=== PATIENT | male | born 1935 | race Caucasian/White ===

== ENCOUNTER → 2018-10-06 | Outpatient (CLI) | payer MEDICARE, OTHER ==
--- NOTE | 2018-10-07 00:29 | XR ---
EXAMINATION TYPE: XR lumbosacral spine min 4V DATE OF EXAM: 10/06/2018 COMPARISON: NONE HISTORY: 83-year-old male fall and low back pain TECHNIQUE: 5 views FINDINGS: Degenerated, slight dextroconvex curvature of the lumbar spine. Advanced dissection plate degenerativ e change L4-L5 and L5-S1. Mild additional levels with prominent endplate spondylosis. Hypertrophic fa cet arthropathy mid to lower lumbar spine. There is grade 1 anterolisthesis at L3-L4. Vertebral body heights are preserved. 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 IMPRESSION: 1. Moderate to advanced disc/endplate degenerative changes especially at L4-L5 and L5-S1. 2. Hypertrophic facet arthropathy with grade 1 anterolisthesis at L3-L4. 3. No vertebral compression collapse. 4. 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
== END | disposition home or self-care (01) ==
LOC: RADXRMAIN 16:43
PROVIDERS: ATTEND Internal Medicine
DX: M43.16 Spondylolisthesis, lumbar region (principal); M51.36 Other intervertebral disc degeneration, lumbar region; M46.96 Unspecified inflammatory spondylopathy, lumbar region
CPT/HCPCS: 72110

== ENCOUNTER 2018-11-05 14:56 | Emergency (ER) | payer MEDICARE, OTHER ==
[2018-11-05 15:03] VITALS: RESP 18; TEMP 98.4
--- NOTE | 2018-11-05 15:52 | ED ---
Male Urogenital HPI - General Chief complaint: Urogenital Stated complaint: GI bleed Time Seen by Provider: 11/05/18 15:07 Source: patient Mode of arrival: ambulatory Limitations: no limitations - History of Present Illness Initial comments: Patient is a 83-year-old male presenting to the emergency Department with complaints of hematuria 1 month. Patient states approximately one month ago patient took a fall onto his right side. Patient states ever since then he has been having blood in his urine. Patient did see Dr. Hanson regarding this issue and an ultrasound of the kidneys was ordered and was scheduled for next week. Patient states he is still having hematuria and some right-sided flank pain. Patient denies any fever, chills, nausea, vomiting. No other complaints at this time. - Related Data Allergies Allergy/AdvReac Type Severity Reaction Status Date / Time No Known Allergies Allergy Verified 11/05/18 15:02 Review of Systems ROS Statement: Those systems with pertinent positive or pertinent negative responses have been documented in the HPI. ROS Other: All systems not noted in ROS Statement are negative. Past Medical History Past Medical History: Diabetes Mellitus, Hypertension History of Any Multi-Drug Resistant Organisms: None Reported Additional Past Surgical History / Comment(s): colon surgery- poor historian Past Psychological History: No Psychological Hx Reported Smoking Status: Former smoker Past Alcohol Use History: Occasional Past Drug Use History: None Reported General Exam - General Exam Comments Initial Comments: GENERAL: Well-appearing, well-nourished and in no acute distress. HEAD: Atraumatic, normocephalic. EYES: Pupils equal round and reactive to light, extraocular movements intact, sclera anicteric, conjunctiva are normal. ENT: TMs normal, nares patent, oropharynx clear without exudates. Moist mucous membranes. NECK: Normal range of motion, supple without lymphadenopathy or JVD. LUNGS: Breath sounds clear to auscultation bilaterally and equal. No wheezes rales or rhonchi. HEART: Regular rate and rhythm without murmurs, rubs or gallops. ABDOMEN: Soft, nontender, normoactive bowel sounds. No guarding, no rebound. No masses appreciated. Mild right side tenderness. : normal external exam EXTREMITIES: Normal range of motion, no pitting or edema. No clubbing or cyanosis. NEUROLOGICAL: Cranial nerves II through XII grossly intact. Normal speech, normal gait. PSYCH: Normal mood, normal affect. SKIN: Warm, Dry, normal turgor, no rashes or lesions noted. Limitations: no limitations Course Vital Signs 11/05/18 14:58 Temperature 98.4 F Pulse Rate 92 Respiratory 18 Rate Blood Pressure 138/88 O2 Sat by Pulse 93 L Oximetry Medical Decision Making - Medical Decision Making Patient is a 83-year-old male presenting with hematuria 1 month. Patient denies any fever, chills, abdominal pain, nausea, vomiting. Patient admits to some right-sided flank pain. Dr. Hanson ordered kidney ultrasound that was scheduled for next week. Patient's exam is within normal limits. CBC, CMP are within normal limits. Urine is very red, greater than 182 red blood cells. Renal ultrasound shows no acute process. Patient is stable for discharge. Patient is given urology referral and will contact him tomorrow. Patient is agreement with this plan. Return parameters were discussed with the patient and he verbalized understanding. Case discussed with Dr. Ortega. - Lab Data Result diagrams: 11/05/18 16:38 11/05/18 16:38 Lab Results 11/05/18 11/05/18 11/05/18 Range/Units 16:23 16:38 16:38 WBC 9.3 (3.8-10.6) k/uL RBC 3.65 L (4.30-5.90) m/uL Hgb 11.4 L (13.0-17.5) gm/dL Hct 34.3 L (39.0-53.0) % MCV 93.8 (80.0-100.0) fL MCH 31.3 (25.0-35.0) pg MCHC 33.3 (31.0-37.0) g/dL RDW 15.6 H (11.5-15.5) % Plt Count 225 (150-450) k/uL Neutrophils % 83 % Lymphocytes % 10 % Monocytes % 4 % Eosinophils % 2 % Basophils % 0 % Neutrophils # 7.6 (1.3-7.7) k/uL Lymphocytes # 1.0 (1.0-4.8) k/uL Monocytes # 0.4 (0-1.0) k/uL Eosinophils # 0.2 (0-0.7) k/uL Basophils # 0.0 (0-0.2) k/uL Sodium 136 L (137-145) mmol/L Potassium 4.2 (3.5-5.1) mmol/L Chloride 103 (98-107) mmol/L Carbon Dioxide 22 (22-30) mmol/L Anion Gap 11 mmol/L BUN 16 (9-20) mg/dL Creatinine 0.96 (0.66-1.25) mg/dL Est GFR (CKD-EPI)AfAm 85 (>60 ml/min/1.73 sqM) Est GFR (CKD-EPI)NonAf 73 (>60 ml/min/1.73 sqM) Glucose 216 H (74-99) mg/dL Calcium 9.0 (8.4-10.2) mg/dL Total Bilirubin 0.5 (0.2-1.3) mg/dL AST 22 (17-59) U/L ALT 20 L (21-72) U/L Alkaline Phosphatase 89 (38-126) U/L Total Protein 7.4 (6.3-8.2) g/dL Albumin 4.0 (3.5-5.0) g/dL Urine Color Red Urine Appearance Bloody (Clear) Urine RBC >182 H (0-5) /hpf Urine WBC >182 H (0-5) /hpf Disposition Clinical Impression: Hematuria Disposition: HOME SELF-CARE Condition: Stable Instructions (If sedation given, give patient instructions): Hematuria (ED) Additional Instructions: Please return to the Emergency Department if symptoms worsen or any other concerns. Follow up with urology as discussed tomorrow. Is patient prescribed a controlled substance at d/c from ED?: No Referrals: Raffi Hanson MD [Primary Care Provider] - 1-2 days Dylan Samaniego MD [STAFF PHYSICIAN] - 1-2 days
[2018-11-05 16:44] LABS: RBC,Urine >182 /hpf (0-5)
[2018-11-05 16:45] LABS: Appearance,Urine Bloody (Clear); Color,Urine Red
[2018-11-05 16:49] LABS: Basophils % (A) 0 %; Eosinophils # (A) 0.2 k/uL (0-0.7); Eosinophils % (A) 2 %; HCT 34.3 % (39.0-53.0); HGB 11.4 gm/dL (13.0-17.5); Lymphocytes % (A) 10 %; MCH 31.3 pg (25.0-35.0); MCHC 33.3 g/dL (31.0-37.0); MCV 93.8 fL (80.0-100.0); Mean Platelet Volume 7.9; Monocytes # (A) 0.4 k/uL (0-1.0); Monocytes % (A) 4 %; Neutrophils # (A) 7.6 k/uL (1.3-7.7); Neutrophils % (A) 83 %; Platelet Count 225 k/uL (150-450); RBC 3.65 m/uL (4.30-5.90); RDW 15.6 % (11.5-15.5); WBC 9.3 k/uL (3.8-10.6)
[2018-11-05 16:58] LABS: Potassium 4.2 mmol/L (3.5-5.1); Total Bilirubin 0.5 mg/dL (0.2-1.3); Total Protein 7.4 g/dL (6.3-8.2)
--- NOTE | 2018-11-05 18:13 | US ---
EXAMINATION TYPE: US renals and bladder DATE OF EXAM: 11/05/2018 COMPARISON: US, CT CLINICAL HISTORY: Pain, hematuria. Pain right side and back. HTN. Hematuria. EXAM MEASUREMENTS: Right Kidney: 11.3 x 5.7 x 6.0 cm Left Kidney: 11.2 x 6.0 x 5.9 cm Right Kidney: Hypoechoic area seen inferiorly measurin.8 x 0.7 x 0.7 cm. Left Kidney: Hypoechoic area seen inferiorly measurin.6 x 2.2 x 1.7 cm. Bladder: not seen Bilateral Jets seen: no IMPRESSION: No acute process.
[2018-11-05 18:53] VITALS: BP 124/81; PULSE 81
== END 2018-11-05 18:51 | disposition home or self-care (01) ==
LOC: EC 14:56
DX: R31.9 Hematuria, unspecified (principal); R10.9 Unspecified abdominal pain; Z87.891 Personal history of nicotine dependence
CPT/HCPCS: 36415; 76770; 80053; 81001; 85025; 87086; 99284

== ENCOUNTER → 2018-11-18 | Outpatient (CLI) | payer MEDICARE, OTHER ==
--- NOTE | 2018-11-18 11:22 | US ---
EXAMINATION TYPE: US duplex aorta DATE OF EXAM: 11/18/2018 COMPARISON: CT 2013 CLINICAL HISTORY: I71.9 Aortic aneurysm of unspecified site, without. Patient c/o back pain. EXAM MEASUREMENTS: Abdominal Aorta: Proximal: 2.6 x 2.2 cm Mid: 2.3 x 1.9 cm Distal: 2.0 x 1.7 cm Bifurcation: 1.3 cm 1.3 cm Sub optimal visualization overall d/t large amounts of overlying bowel gas. No evidence of AAA. IMPRESSION: Suboptimal study, visualized portions show no AAA.
== END | disposition home or self-care (01) ==
LOC: RADUSWWP 10:13
PROVIDERS: ATTEND Internal Medicine
DX: I71.9 Aortic aneurysm of unspecified site, without rupture (principal)
CPT/HCPCS: 93979

== ENCOUNTER → 2018-12-18 | Outpatient (CLI) | payer MEDICARE ==
--- NOTE | 2018-12-18 15:30 | CT ---
EXAMINATION TYPE: CT urogram wo/w con DATE OF EXAM: 12/18/2018 COMPARISON: 05/26/2013 HISTORY: 83-year-old male Hematuria with clotting post fall in September 2018 TECHNIQUE: Contiguous axial scanning of the abdomen and pelvis performed without and with IV Contrast , patient injected with 100 mL of Isovue 300. Delayed images through the kidneys and bladder were obt ained. Coronal/sagittal reconstructions performed. 3-D reconstructions generated on a dedicated [employer] workstation. CT DLP: 2833.8 mGycm Automated exposure control for dose reduction was used. FINDINGS: Normal size without pericardial effusion. There is new patchy nodular infiltrates in the bilateral lo wer lobes. Progressive moderate to severe atherosclerotic calcifications throughout the abdominal aorta and laurence c arteries. Tiny hiatal hernia. No focal liver lesion or biliary ductal dilatation. Portal venous system is patent. Small layering calculi in the gallbladder. Adrenal glands and anchors appear within normal limits. Spleen mildly enlarged at 15.7 cm. Left kidney shows a 1.8 cm cortical cyst laterally from the lower pole. Otherwise, no suspicious enhancing renal lesion. No nephrolithiasis or hydronephrosis. Symmetric upta ke and excretion of contrast from both kidneys. No suspicious filling defect within the renal collect ing systems. Short segments of the ureters are not opacified. The majority of the ureters are visualized and show no gross about 8. Status post distal rectal resection allowing for medialization and posterior positioning of the urete rs. No dilated small bowel, free fluid, or free air. No mesenteric or retroperitoneal lymphadenopathy. Staple lines within lower abdominal mid small bowel related to prior bowel resection and reanastomosi s. Normal appendix. Mild overall stool burden with left lower quadrant sigmoid colostomy. No pericolonic inflammatory change. Suggestion of some soft tissue density along the left posterior bladder wall measuring up to 3.5 x 1. 3 cm no abnormal fluid collection the pelvis. Stable presacral soft tissue thickening likely on a pos tsurgical basis. No pelvic lymphadenopathy. Bones: Degenerative changes at the hips and advanced degenerative disc disease L4-L5 and L5-S1 along with hypertrophic facet arthropathy. IMPRESSION: 1. BENIGN 1.8 CM LEFT LOWER POLE RENAL CORTICAL CYST. 2. NO NEPHROLITHIASIS, HYDRONEPHROSIS, SUSPICIOUS RENAL LESION, OR FILLING DEFECT WITHIN THE RENAL CO LLECTING SYSTEMS. 3. MOST OF THE URETERS ARE OPACIFIED AND SHOW NO GROSS ABNORMALITY. DISTAL RECTAL RESECTION ALLOWS FO R MEDIALIZATION AND POSTERIOR DISPLACEMENT OF THE URETERS IN THE PELVIS. 4. A 3.5 X 1.3 CM SOFT TISSUE DENSITY INTRALUMINAL FILLING DEFECT NEAR THE LEFT POSTERIOR BLADDER WAL L. CLOT, FUNGUS BALL, AND NEOPLASM ARE IN THE DIFFERENTIAL. FURTHER APPROPRIATE WORKUP INDICATED. 5. TINY HERNIA, CHOLELITHIASIS, MILD SPLENOMEGALY (15.7 CM).
== END | disposition home or self-care (01) ==
LOC: RADCTMAIN 12:13
PROVIDERS: ATTEND Urology
DX: N28.1 Cyst of kidney, acquired (principal); K44.9 Diaphragmatic hernia without obstruction or gangrene; K80.20 Calculus of gallbladder without cholecystitis without obstruction; R31.0 Gross hematuria; R16.1 Splenomegaly, not elsewhere classified
CPT/HCPCS: 82565; 84520; 74178; 36415; 74400; Q9967

== ENCOUNTER 2018-12-22 14:39 | Inpatient (IN) | payer MEDICARE ==
[2018-12-22] MEDS ORDERED: FUROSEMIDE 10 MG/ML 2 ML VIAL IV ONE (16:15)
[2018-12-22 16:46] LABS: Albumin 3.9 g/dL (3.5-5.0); Calcium 8.9 mg/dL (8.4-10.2); Potassium 4.1 mmol/L (3.5-5.1); Total Bilirubin 0.7 mg/dL (0.2-1.3)
[2018-12-22 16:52] LABS: Anisocytosis Slight; Basophils % (A) 1 %; Eosinophils # (A) 0.1 k/uL (0-0.7); Eosinophils % (A) 3 %; Hypochromasia Marked; Lymphocytes % (A) 22 %; MCH 26.4 pg (25.0-35.0); Mean Platelet Volume 9.6; Monocytes # (A) 0.4 k/uL (0-1.0); Monocytes % (A) 8 %; Neutrophils % (A) 65 %; Platelet Count 261 k/uL (150-450); Poikilocytosis Marked; RBC 1.96 m/uL (4.30-5.90); RDW 16.3 % (11.5-15.5); WBC 4.6 k/uL (3.8-10.6)
[2018-12-22 17:01] LABS: HCT 16.7 % (39.0-53.0); HGB 5.2 gm/dL (13.0-17.5); MCV 85.4 fL (80.0-100.0)
[2018-12-22 17:11] LABS: Poikilocytosis (M) Present; Polychromasia Present; Target Cells Present
[2018-12-22 17:27] LABS: Glucose,Whole Blood 273 mg/dL (75-99)
[2018-12-22] MEDS: hydrALAZINE HCL 50 MG TAB PO SCH (17:58)
[2018-12-22] MEDS: INSULIN ASPART (NovoLOG) 100 UNIT/ML VIAL SQ SCH ×2 (17:58→21:32)
[2018-12-22] MEDS: CARVEDILOL 6.25 MG TAB PO SCH (17:58)
[2018-12-22] MEDS: SODIUM CHLORIDE 0.9% 1,000 ML IV SCH (19:01)
[2018-12-22 21:09] LABS: Glucose,Whole Blood 200 mg/dL (75-99)
[2018-12-22] MEDS: glipiZIDE 5 MG TAB PO SCH (21:32)
--- NOTE | 2018-12-22 21:42 | P.GSCN ---
History of Present Illness Consult date: 12/22/18 Reason for Consult: Gross hematuria Requesting physician: Raffi Hanosn History of present illness: The patient is an 83-year-old white male with an unremarkable urologic history. He fell on October 02, hurting his back. Since that time, he has experienced gross hematuria. He denies urinary incontinence. He reports occasional mild dysuria. Review of Systems - Constitutional Denies chills, Denies fever - Genitourinary Reports dysuria, Reports hematuria, Reports nocturia Past Medical History Past Medical History: Diabetes Mellitus, Hypertension History of Any Multi-Drug Resistant Organisms: None Reported Past Surgical History: Bowel Resection Additional Past Surgical History / Comment(s): Sigmoid colostomy Past Anesthesia/Blood Transfusion Reactions: No Reported Reaction Past Psychological History: No Psychological Hx Reported Smoking Status: Former smoker Past Alcohol Use History: Occasional Past Drug Use History: None Reported - Past Family History Father History Unknown: Yes Mother Family Medical History: No Reported History Medications and Allergies Home Medications Medication Instructions Recorded Confirmed Type Aspirin EC [Ecotrin Low Dose] 81 mg PO DAILY 12/22/18 12/22/18 History Carvedilol [Coreg] 6.25 mg PO BID 12/22/18 12/22/18 History Hydrochlorothiazide [Hydrodiuril] 25 mg PO DAILY 12/22/18 12/22/18 History Linagliptin [Tradjenta] 5 mg PO DAILY 12/22/18 12/22/18 History glipiZIDE [Glucotrol] 5 mg PO AC-TID 12/22/18 12/22/18 History hydrALAZINE HCL 50 mg PO AC-BID 12/22/18 12/22/18 History Allergies Allergy/AdvReac Type Severity Reaction Status Date / Time No Known Allergies Allergy Verified 11/05/18 15:02 Surgical - Exam Vital Signs Temp Pulse Resp BP Pulse Ox 97.8 F 61 16 148/62 98 12/22/18 16:04 12/22/18 16:04 12/22/18 16:04 12/22/18 16:04 12/22/18 16:04 - General well developed, well nourished, no distress - Respiratory normal respiratory effort - Abdomen left-sided colostomy Abdomen: soft, non tender, no guarding, no rigid, no rebound - Genitourinary normal penis with no external lesions, testicles non-tender - Psychiatric oriented to time, oriented to person, oriented to place, speech is normal, memory intact Results - Labs 12/22/18 16:18 12/22/18 16:18 Abnormal Lab Results - Last 24 Hours (Table) 12/22/18 12/22/18 12/22/18 Range/Units 16:12 16:18 16:18 RBC 1.96 L (4.30-5.90) m/uL Hgb 5.2 L* D (13.0-17.5) gm/dL Hct 16.7 L* (39.0-53.0) % RDW 16.3 H (11.5-15.5) % Sodium 135 L (137-145) mmol/L BUN 24 H (9-20) mg/dL Glucose 255 H (74-99) mg/dL POC Glucose (mg/dL) (75-99) mg/dL Crossmatch See Detail 12/22/18 12/22/18 Range/Units 17:26 21:08 RBC (4.30-5.90) m/uL Hgb (13.0-17.5) gm/dL Hct (39.0-53.0) % RDW (11.5-15.5) % Sodium (137-145) mmol/L BUN (9-20) mg/dL Glucose (74-99) mg/dL POC Glucose (mg/dL) 273 H 200 H (75-99) mg/dL Crossmatch Diabetes panel 12/22/18 Range/Units 16:18 Sodium 135 L (137-145) mmol/L Potassium 4.1 (3.5-5.1) mmol/L Chloride 99 (98-107) mmol/L Carbon Dioxide 25 (22-30) mmol/L BUN 24 H (9-20) mg/dL Creatinine 1.03 (0.66-1.25) mg/dL Glucose 255 H (74-99) mg/dL Calcium 8.9 (8.4-10.2) mg/dL AST 17 (17-59) U/L ALT 21 (21-72) U/L Alkaline Phosphatase 77 (38-126) U/L Total Protein 7.0 (6.3-8.2) g/dL Albumin 3.9 (3.5-5.0) g/dL Calcium panel 12/22/18 Range/Units 16:18 Calcium 8.9 (8.4-10.2) mg/dL Albumin 3.9 (3.5-5.0) g/dL Pituitary panel 12/22/18 Range/Units 16:18 Sodium 135 L (137-145) mmol/L Potassium 4.1 (3.5-5.1) mmol/L Chloride 99 (98-107) mmol/L Carbon Dioxide 25 (22-30) mmol/L BUN 24 H (9-20) mg/dL Creatinine 1.03 (0.66-1.25) mg/dL Glucose 255 H (74-99) mg/dL Calcium 8.9 (8.4-10.2) mg/dL Adrenal panel 12/22/18 Range/Units 16:18 Sodium 135 L (137-145) mmol/L Potassium 4.1 (3.5-5.1) mmol/L Chloride 99 (98-107) mmol/L Carbon Dioxide 25 (22-30) mmol/L BUN 24 H (9-20) mg/dL Creatinine 1.03 (0.66-1.25) mg/dL Glucose 255 H (74-99) mg/dL Calcium 8.9 (8.4-10.2) mg/dL Total Bilirubin 0.7 (0.2-1.3) mg/dL AST 17 (17-59) U/L ALT 21 (21-72) U/L Alkaline Phosphatase 77 (38-126) U/L Total Protein 7.0 (6.3-8.2) g/dL Albumin 3.9 (3.5-5.0) g/dL - Imaging CT scan - pelvis: report reviewed, image reviewed Assessment and Plan (1) Gross hematuria Current Visit: Yes Status: Acute Code(s): R31.0 - GROSS HEMATURIA SNOMED Code(s): 931134943 Plan: I have reviewed the patient's CT scan. The kidneys are normal other than a left renal cyst. An intravesical lesion is suspicious for urothelial carcinoma. If the patient's condition is stable following transfusion, he may be discharged home and arrangements will be made for him to undergo office cystoscopy soon. He is followed by Dr. Ritter and I will make him aware of Mr. Melchor's admission. Time with Patient: Greater than 30
[2018-12-23 07:22] LABS: Glucose,Whole Blood 270 mg/dL (75-99)
[2018-12-23] MEDS: INSULIN ASPART (NovoLOG) 100 UNIT/ML VIAL SQ SCH ×4 (08:23→20:33)
[2018-12-23] MEDS: glipiZIDE 5 MG TAB PO SCH ×3 (08:24→16:48)
[2018-12-23] MEDS: CARVEDILOL 6.25 MG TAB PO SCH ×2 (08:24→16:26)
[2018-12-23] MEDS: hydrALAZINE HCL 50 MG TAB PO SCH ×2 (08:24→16:26)
[2018-12-23] MEDS: LINAGLIPTIN 5 MG TABLET PO SCH (08:24)
[2018-12-23] MEDS: HYDROCHLOROTHIAZIDE 25 MG TAB PO SCH (08:25)
[2018-12-23 08:55] LABS: Anisocytosis Slight; Basophils % (A) 0 %; Eosinophils % (A) 0 %; HCT 23.5 % (39.0-53.0); Hypochromasia Marked; Lymphocytes # (A) 0.9 k/uL (1.0-4.8); Lymphocytes % (A) 8 %; MCH 27.9 pg (25.0-35.0); MCHC 32.7 g/dL (31.0-37.0); MCV 85.5 fL (80.0-100.0); Monocytes # (A) 0.6 k/uL (0-1.0); Monocytes % (A) 5 %; Neutrophils # (A) 9.9 k/uL (1.3-7.7); Neutrophils % (A) 84 %; Platelet Count 279 k/uL (150-450); Poikilocytosis Marked; RBC 2.75 m/uL (4.30-5.90); RDW 16.1 % (11.5-15.5); WBC 11.7 k/uL (3.8-10.6)
[2018-12-23 09:02] LABS: Potassium 3.8 mmol/L (3.5-5.1)
[2018-12-23 09:12] LABS: HGB 7.7 gm/dL (13.0-17.5)
--- NOTE | 2018-12-23 09:58 | P.HPIM ---
History of Present Illness H&P Date: 12/23/18 Chief Complaint: Anemia hemoglobin 5.1 and office This is a 83-year-old male with a known history of diabetes mellitus, hypertension, small bowel obstruction requiring bowel resection and colostomy placement. Patient had a fall in September hitting his back. He reports since then having blood in his urine. He has been undergoing workup in the outpatient setting. He was seen by Dr. Ritter and had a CT urogram completed showing a benign 1.8 cm left lower pole renal cortical cyst. A 3.5 x 1.3 cm soft tissue density intraluminal filling defect near the left posterior bladder wall. Clot, fungus ball, a neoplasm are in the differential. Tiny hernia, cholelithiasis and mild splenomegaly noted. Patient was a direct admit from the office due to a hemoglobin of 5.1. He been having significant hematuria with blood clots since September. Patient was brought in by the granddaughter. She was concerned because patient was more confused and dizzy. He was having difficulty with ambulating and complaining of lower back pain. This was omitted to the hospital receive 2 units of blood with Lasix in between. Hemoglobin has gone up from 5.2-7.7. Patient seen by urology the recommending cystoscopy outpatient. White count is elevated 11.7 today. Patient is still having confusion. He reports feeling better than yesterday but still having some dizziness and shortness of breath. He denies any chest pain. She denies any nausea or vomiting or bowel movement changes. Denies any burning with urination. Hematuria has resolved. Patient denies any fevers chills or sweats. Review of Systems Please refer to HPI otherwise unremarkable Past Medical History Past Medical History: Diabetes Mellitus, Hypertension History of Any Multi-Drug Resistant Organisms: None Reported Past Surgical History: Bowel Resection Additional Past Surgical History / Comment(s): Sigmoid colostomy Past Anesthesia/Blood Transfusion Reactions: No Reported Reaction Past Psychological History: No Psychological Hx Reported Smoking Status: Former smoker Past Alcohol Use History: Occasional Past Drug Use History: None Reported - Past Family History Father History Unknown: Yes Mother Family Medical History: No Reported History Medications and Allergies Home Medications Medication Instructions Recorded Confirmed Type Aspirin EC [Ecotrin Low Dose] 81 mg PO DAILY 12/22/18 12/23/18 History Carvedilol [Coreg] 6.25 mg PO BID 12/22/18 12/23/18 History Hydrochlorothiazide [Hydrodiuril] 25 mg PO DAILY 12/22/18 12/23/18 History Linagliptin [Tradjenta] 5 mg PO DAILY 12/22/18 12/23/18 History glipiZIDE [Glucotrol] 5 mg PO AC-TID 12/22/18 12/23/18 History hydrALAZINE HCL 50 mg PO AC-BID 12/22/18 12/23/18 History Allergies Allergy/AdvReac Type Severity Reaction Status Date / Time No Known Allergies Allergy Verified 12/23/18 07:55 Physical Exam Vitals: Vital Signs Temp Pulse Pulse Resp BP BP Pulse Ox 12/23/18 08:32 95 12/23/18 05:03 98.6 F 71 20 122/56 96 12/23/18 02:07 98.9 F 67 19 135/78 98 12/23/18 01:37 97.8 F 66 18 140/60 97 12/23/18 01:27 98.6 F 80 18 124/61 97 12/22/18 23:50 97.5 F L 67 18 117/68 97 12/22/18 20:39 97.3 F L 77 18 123/65 98 12/22/18 20:09 97.3 F L 80 19 122/56 96 12/22/18 19:59 97.1 F L 88 21 135/63 97 12/22/18 16:04 97.8 F 61 16 148/62 98 Intake and Output 12/22/18 12/23/18 12/23/18 22:59 06:59 14:59 Intake Total 0 1460 Balance 0 1460 Intake: Intake, IV Titration 600 Amount Sodium Chloride 0.9% 1, 600 000 ml @ 50 mls/hr IV . Q20H [facility] Rx#:[id number] Oral 240 Blood Product 0 620 Rc As-1 Unit 310 [id number] Rc As-3 Unit 0 310 [id number] Other: Voiding Method Urinal # Voids 5 # Bowel Movements 0 1 Weight 99.79 kg Head normocephalic Neck supple Lungs clear to auscultation bilaterally no wheezing or crackles Heart regular rate and rhythm S1-S2, no rub or gallop Abdomen is soft nontender nondistended positive bowel sounds no hepatosplenomegaly. Colostomy bag Extremities no edema Neuro alert and orientated to name only. Patient could not identify where he was at. And said that it was 1819 for the year. Results CBC & Chem 7: 12/23/18 08:28 12/23/18 08:28 Labs: Abnormal Lab Results - Last 24 Hours (Table) 12/22/18 12/22/18 12/22/18 Range/Units 16:12 16:18 16:18 WBC (3.8-10.6) k/uL RBC 1.96 L (4.30-5.90) m/uL Hgb 5.2 L* D (13.0-17.5) gm/dL Hct 16.7 L* (39.0-53.0) % RDW 16.3 H (11.5-15.5) % Neutrophils # (1.3-7.7) k/uL Lymphocytes # (1.0-4.8) k/uL Sodium 135 L (137-145) mmol/L BUN 24 H (9-20) mg/dL Glucose 255 H (74-99) mg/dL POC Glucose (mg/dL) (75-99) mg/dL Crossmatch See Detail 12/22/18 12/22/18 12/23/18 Range/Units 17:26 21:08 07:21 WBC (3.8-10.6) k/uL RBC (4.30-5.90) m/uL Hgb (13.0-17.5) gm/dL Hct (39.0-53.0) % RDW (11.5-15.5) % Neutrophils # (1.3-7.7) k/uL Lymphocytes # (1.0-4.8) k/uL Sodium (137-145) mmol/L BUN (9-20) mg/dL Glucose (74-99) mg/dL POC Glucose (mg/dL) 273 H 200 H 270 H (75-99) mg/dL Crossmatch 12/23/18 12/23/18 Range/Units 08:28 08:28 WBC 11.7 H (3.8-10.6) k/uL RBC 2.75 L (4.30-5.90) m/uL Hgb 7.7 L D (13.0-17.5) gm/dL Hct 23.5 L (39.0-53.0) % RDW 16.1 H (11.5-15.5) % Neutrophils # 9.9 H (1.3-7.7) k/uL Lymphocytes # 0.9 L (1.0-4.8) k/uL Sodium 136 L (137-145) mmol/L BUN (9-20) mg/dL Glucose 245 H (74-99) mg/dL POC Glucose (mg/dL) (75-99) mg/dL Crossmatch Thrombosis Risk Factor Assmnt - Choose All That Apply Any of the Below Risk Factors Present?: No Other Risk Factors: Yes Each Risk Factor Represents 3 Points: Age 75 years or older Thrombosis Risk Factor Assessment Total Risk Factor Score: 3 Thrombosis Risk Factor Assessment Level: Moderate Risk Assessment and Plan Assessment: 1. Acute blood loss anemia with a hemoglobin of 5.1 in the office. This is secondary to the hematuria. Hemoglobin is now 7.7 after 2 units of blood. Continue to monitor CBC. 2. Soft tissue density in the bladder wall suspicious for urothelial carcinoma. 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 The recommending cystoscopy in the outpatient setting. 3. Leukocytosis: We will check urinalysis and chest x-ray. Repeat CBC in a.m. 4. Dizziness and shortness of breath likely secondary to patient's anemia starting to show improvement 5. Diabetes mellitus with uncontrolled blood sugars. It is unclear if patient was taking his blood sugar medications at home. Patient is been restarted on his glipizide 5 mg 3 times a day and Tradjenta 5 mg daily. Continue with sliding scale coverage. Check hemoglobin A1c. 6. Confusion and altered mental status possibly metabolic due to patient's anemia. However, will rule out infectious causes check urinalysis and chest x- ray 7. Essential hypertension: blood pressures are stable. continue with hydrochlorothiazide 8. Medical debility and unsteady gait. Consult PT OT 9. Consult social service coordinator and case briefer for possible nursing assistance at home or possible placement. Time with Patient: Greater than 30 (Greater than 50% of the total time spent in counseling and coordination of care.I performed an examination of the patient and discussed their management with the physician Instructional Design Consultant. I have reviewed the Physician Instructional Design Consultant's notes and agree with the documented findings and plan of care)
[2018-12-23 11:38] LABS: Glucose,Whole Blood 235 mg/dL (75-99)
[2018-12-23] MEDS: INSULIN DETEMIR (LEVEMIR) 100 UNIT/ML SYR SQ SCH (11:52)
[2018-12-23] MEDS: SODIUM CHLORIDE 0.9% 1,000 ML IV SCH (12:56)
--- NOTE | 2018-12-23 13:28 | CT ---
EXAMINATION TYPE: CT brain wo con DATE OF EXAM: 12/23/2018 COMPARISON: None HISTORY: Confusion CT DLP: 1138 mGycm Automated exposure control for dose reduction was used. FINDINGS: There is no acute intracranial hemorrhage, mass effect, or midline shift identified. There is extensi ve generalized degenerative change and low-attenuation the white matter which is nonspecific but most typical remote microvascular ischemia. Areas of hyperdensity involving the frontal lobes compatible with artifact. There are intracranial at herosclerotic changes are seen. Abnormal attenuation within the brainstem is suggestive of remote are as of infarct. Tiny calcification within the basal ganglia noted. Areas of of low attenuation involvi ng the basal ganglia are most typical remote acute infarcts. Small osteoma left frontal sinus. Suspec t a tiny calcification in the right occipital lobe posteriorly. IMPRESSION: 1. Degenerative and nonspecific white matter changes most typical of remote microvascular ischemia. C omponent abnormal pressure hydrocephalus in the differential diagnosis. If there is concern for acute ischemia correlate with MRI as clinically warranted.
--- NOTE | 2018-12-23 14:33 | XR ---
EXAMINATION TYPE: XR chest 2V DATE OF EXAM: 12/23/2018 COMPARISON: 10/26/2013 HISTORY: 83-year-old male with cough TECHNIQUE: Frontal and lateral views FINDINGS: Heart is normal in size. Atherosclerotic arch calcifications. Mild patchy bibasilar densities without pleural effusion. IMPRESSION: Mild patchy bibasilar areas of atelectasis versus early infiltrates. Correlation will be needed to ex clude a developing pneumonia particularly at the right base.
[2018-12-23 17:19] LABS: Glucose,Whole Blood 183 mg/dL (75-99)
--- NOTE | 2018-12-23 18:05 | P.CNNES ---
History of Present Illness Consult date: 12/23/18 Requesting physician: Prerna Mason Reason for Consult: Abnormal CT Head Chief complaint: Difficulty walking History of Present Illness: This is an 83 RH male h/o HTN, DM, SBO and CLBP who c/o hematuria since a fall back in 09/2018 who was brought into the hospital for evaluation of dizziness an d confusion. As part of his AMS work-up, he had a CT Head that showed possible NPH, hence today's neuro evaluation. Patient states that he has difficulty with walking because of chronic low-back issues. Denies shuffling or inability to tell his feet what to do, i.e. gait apraxia. His memory is not the greatest. While he does have hematuria, he denies urinary stress or urge incontinence. He states that in general he is always able to make it in time to the bathroom without causing accidents. Neurologically, patient denies decreased level or loss of consciousness, headache, changes in vision, facial numbness/droop, vertigo, bulbar symptoms, aphasia, new focal numbness/weakness, tremors or atax ia. Review of Systems I have performed a 14-point organ ROS with patient; pertinents are as per HPI. Past Medical History Past Medical History: Diabetes Mellitus, Hypertension History of Any Multi-Drug Resistant Organisms: None Reported Past Surgical History: Bowel Resection Additional Past Surgical History / Comment(s): Sigmoid colostomy Past Anesthesia/Blood Transfusion Reactions: No Reported Reaction Past Psychological History: No Psychological Hx Reported Smoking Status: Former smoker Past Alcohol Use History: Occasional Past Drug Use History: None Reported - Past Family History Father History Unknown: Yes Mother Family Medical History: No Reported History Medications and Allergies Home Medications Medication Instructions Recorded Confirmed Type Aspirin EC [Ecotrin Low Dose] 81 mg PO DAILY 12/22/18 12/23/18 History Carvedilol [Coreg] 6.25 mg PO BID 12/22/18 12/23/18 History Hydrochlorothiazide [Hydrodiuril] 25 mg PO DAILY 12/22/18 12/23/18 History Linagliptin [Tradjenta] 5 mg PO DAILY 12/22/18 12/23/18 History glipiZIDE [Glucotrol] 5 mg PO AC-TID 12/22/18 12/23/18 History hydrALAZINE HCL 50 mg PO AC-BID 12/22/18 12/23/18 History Allergies Allergy/AdvReac Type Severity Reaction Status Date / Time No Known Allergies Allergy Verified 12/23/18 07:55 Physical Examination - Vital Signs Vital Signs: Vital Signs Temp Pulse Pulse Resp BP BP Pulse Ox 12/23/18 12:12 98.2 F 83 20 161/71 94 L 12/23/18 08:32 95 12/23/18 05:03 98.6 F 71 20 122/56 96 12/23/18 02:07 98.9 F 67 19 135/78 98 12/23/18 01:37 97.8 F 66 18 140/60 97 12/23/18 01:27 98.6 F 80 18 124/61 97 12/22/18 23:50 97.5 F L 67 18 117/68 97 12/22/18 20:39 97.3 F L 77 18 123/65 98 12/22/18 20:09 97.3 F L 80 19 122/56 96 12/22/18 19:59 97.1 F L 88 21 135/63 97 Intake and Output 12/23/18 12/23/18 12/23/18 06:59 14:59 22:59 Intake Total 1460 400 Balance 1460 400 Intake: Intake, IV Titration 600 400 Amount Sodium Chloride 0.9% 1, 600 400 000 ml @ 50 mls/hr IV . Q20H [facility] Rx#:[id number] Oral 240 Blood Product 620 Rc As-1 Unit 310 [id number] Rc As-3 Unit 310 [id number] Other: Voiding Method Urinal Urinal Urinal # Voids 5 # Bowel Movements 1 Gen NAD Pleasant and cooperative HEENT NCAT Sclera without icterus O/P clear Neck Supple No carotid bruit Cor RRR no m/r/g Lungs CTAB Abd Soft NTND +BS Ext Warm to touch No edema Neuro MS A+Ox2 Normal fluency Able to follow all commands CN PERRL VFF no APD EOMI no nystagmus or KRYSTYNA No facial asymmetry Masseter's symmetric Hearing intact to normal voice bilaterally Speech not dysarthric Equal elevation of palate Tongue midline Sym shrug and SCM bilaterally Motor Normal bulk/tone No pronator drift No tremors Strength 5/5 sym throughout Sens Intact to LT x4 No neglect Coord No dysmetria on FTN bilaterally DTRs 2+/4 sym throughout Toes downgoing bilaterally No clonus at achilles Gait Deferred Results - Laboratory Findings CBC and BMP: 12/23/18 08:28 12/23/18 08:28 Abnormal Lab Findings: Abnormal Labs 12/22/18 12/22/18 12/22/18 16:12 16:18 16:18 WBC RBC 1.96 L Hgb 5.2 L* D Hct 16.7 L* RDW 16.3 H Neutrophils # Lymphocytes # Sodium 135 L BUN 24 H Glucose 255 H POC Glucose (mg/dL) Crossmatch See Detail 12/22/18 12/22/18 12/23/18 17:26 21:08 07:21 WBC RBC Hgb Hct RDW Neutrophils # Lymphocytes # Sodium BUN Glucose POC Glucose (mg/dL) 273 H 200 H 270 H Crossmatch 12/23/18 12/23/18 12/23/18 08:28 08:28 11:37 WBC 11.7 H RBC 2.75 L Hgb 7.7 L D Hct 23.5 L RDW 16.1 H Neutrophils # 9.9 H Lymphocytes # 0.9 L Sodium 136 L BUN Glucose 245 H POC Glucose (mg/dL) 235 H Crossmatch 12/23/18 17:18 WBC RBC Hgb Hct RDW Neutrophils # Lymphocytes # Sodium BUN Glucose POC Glucose (mg/dL) 183 H Crossmatch - Diagnostic Findings Additional findings: CT Head wo cont 12/23/18. No ICH. Small vessel disease. Remote basal ganglia infarcts. Significant global atrophy. Prominent ventricles. Nil acute. I have reviewed neuroimages myself. Assessment and Plan Assessment: Prominent ventricles in the setting of significant global atrophy. Does not have the classic triad for communicating hydrocephalus. Suspect prominent ventricles are due to ex vacuo dilatation and not normal pressure hydrocephalus. Plan: -CT Head results, clinical triad and diagnostic work-up and treatment options of NPH d/w patient -However, since I do not suspect that he has NPH, I would not proceed with more invasive testing such as large volume LP or nuclear medicine testing for CSF flow -d/w patient in detail. All questions answered -No further inpatient recs at this time. Will revisit patient prn. Please call with new ?. Thank you for this consultation. Time with Patient: Greater than 30 (Time spent in direct patient care, greater than 50% of which was spent in [id number] counseling and coordination of care: 70 minutes)
[2018-12-23 19:37] LABS: Hemoglobin A1C 7.2 % (4.0-6.0)
[2018-12-23 20:01] LABS: Glucose,Whole Blood 152 mg/dL (75-99)
[2018-12-24] MEDS ORDERED: LORazepam 2 MG/ML INJ IV PRN (02:29)
[2018-12-24 07:14] LABS: Glucose,Whole Blood 122 mg/dL (75-99)
[2018-12-24 07:56] LABS: Albumin 3.7 g/dL (3.5-5.0); Calcium 9.3 mg/dL (8.4-10.2); Potassium 3.2 mmol/L (3.5-5.1); Total Bilirubin 0.8 mg/dL (0.2-1.3); Total Protein 6.9 g/dL (6.3-8.2)
[2018-12-24 08:19] LABS: Anisocytosis Slight; Basophils # (A) 0.1 k/uL (0-0.2); Basophils % (A) 1 %; Eosinophils # (A) 0.1 k/uL (0-0.7); Eosinophils % (A) 2 %; HCT 22.6 % (39.0-53.0); HGB 7.2 gm/dL (13.0-17.5); Hypochromasia Marked; Lymphocytes # (A) 1.1 k/uL (1.0-4.8); Lymphocytes % (A) 18 %; MCH 27.4 pg (25.0-35.0); MCHC 31.9 g/dL (31.0-37.0); MCV 85.7 fL (80.0-100.0); Mean Platelet Volume 8.6; Monocytes # (A) 0.5 k/uL (0-1.0); Monocytes % (A) 8 %; Neutrophils # (A) 3.9 k/uL (1.3-7.7); Neutrophils % (A) 68 %; Platelet Count 253 k/uL (150-450); Poikilocytosis Marked; RBC 2.64 m/uL (4.30-5.90); RDW 16.5 % (11.5-15.5); WBC 5.7 k/uL (3.8-10.6)
[2018-12-24] MEDS ORDERED: Potassium Replacement Protocol 1 EACH MISC MISCELLANE PRN (08:20)
[2018-12-24 10:26] LABS: Large Platelets Present; Polychromasia Present
--- NOTE | 2018-12-24 10:56 | P.PN ---
Subjective Progress Note Date: 12/24/18 This is a 83-year-old male with a known history of diabetes mellitus, hypertension, small bowel obstruction requiring bowel resection and colostomy placement. Patient had a fall in September hitting his back. He reports since then having blood in his urine. He has been undergoing workup in the outpatient [facility]. He was seen by Dr. Ritter and had a CT urogram completed showing a benign 1.8 cm left lower pole renal cortical cyst. A 3.5 x 1.3 cm soft tissue density intraluminal filling defect near the left posterior bladder wall. Clot, fungus ball, a neoplasm are in the differential. Tiny hernia, cholelithiasis and mild splenomegaly noted. Patient was a direct admit from the office due to a hemogl obin of 5.1. He been having significant hematuria with blood clots since September. Patient was brought in by the granddaughter. She was concerned because patient was more confused and dizzy. He was having difficulty with ambulating and complaining of lower back pain. This was omitted to the hospital receive 2 units of blood with Lasix in between. Hemoglobin has gone up from 5.2-7.7. Patient seen by urology the recommending cystoscopy outpatient. White count is elevated 11.7 today. Patient is still having confusion. He reports feeling better than yesterday but still having some dizziness and shortness of breath. He denies any chest pain. She denies any nausea or vomiting or bowel movement changes. Denies any burning with urination. Hematuria has resolved. Patient denies any fevers chills or sweats. On 12/24/2018 patient had increased confusion throughout the night requiring At brynn. Patient is currently resting comfortably in bed. Patient was evaluated by neurology services. Hemoglobin is currently 7.2. Patient is currently maintained on Rocephin for possible pneumonia. Pulmonary services have been consulted. At this time patient denies any complaints Objective - Vital Signs Vital signs: Vital Signs Temp 97.9 F 12/24/18 07:57 Pulse 81 12/24/18 07:57 Resp 20 12/24/18 07:57 BP 138/78 12/24/18 07:57 Pulse Ox 94 L 12/24/18 07:57 Intake & Output 12/23/18 12/24/18 12/24/18 18:59 06:59 18:59 Intake Total 400 1200 Balance 400 1200 Intake: Intake, IV Titration 400 Amount Sodium Chloride 0.9% 1, 400 000 ml @ 50 mls/hr IV . Q20H [facility] Rx#:[id number] Oral 1200 Other: Voiding Method Urinal Toilet # Voids 2 - Exam Head normocephalic Neck supple Lungs clear to auscultation bilaterally no wheezing or crackles Heart regular rate and rhythm S1-S2, no rub or gallop Abdomen is soft nontender nondistended positive bowel sounds no hepatosplenomegaly. Colostomy bag Extremities no edema Neuro alert and orientated to name only. Patient could not identify where he was at. And said that it was 1819 for the year. - Labs CBC & Chem 7: 12/24/18 07:20 12/24/18 07:20 Labs: Abnormal Lab Results - Last 24 Hours (Table) 12/22/18 12/23/18 12/23/18 Range/Units 16:18 11:37 17:18 RBC (4.30-5.90) m/uL Hgb (13.0-17.5) gm/dL Hct (39.0-53.0) % RDW (11.5-15.5) % Potassium (3.5-5.1) mmol/L Glucose (74-99) mg/dL POC Glucose (mg/dL) 235 H 183 H (75-99) mg/dL Hemoglobin A1c 7.2 H (4.0-6.0) % ALT (21-72) U/L 12/23/18 12/24/18 12/24/18 Range/Units 20:00 07:13 07:20 RBC 2.64 L (4.30-5.90) m/uL Hgb 7.2 L (13.0-17.5) gm/dL Hct 22.6 L (39.0-53.0) % RDW 16.5 H (11.5-15.5) % Potassium (3.5-5.1) mmol/L Glucose (74-99) mg/dL POC Glucose (mg/dL) 152 H 122 H (75-99) mg/dL Hemoglobin A1c (4.0-6.0) % ALT (21-72) U/L 12/24/18 Range/Units 07:20 RBC (4.30-5.90) m/uL Hgb (13.0-17.5) gm/dL Hct (39.0-53.0) % RDW (11.5-15.5) % Potassium 3.2 L (3.5-5.1) mmol/L Glucose 110 H (74-99) mg/dL POC Glucose (mg/dL) (75-99) mg/dL Hemoglobin A1c (4.0-6.0) % ALT 13 L (21-72) U/L Assessment and Plan Assessment: 1. Acute blood loss anemia with a hemoglobin of 5.1 in the office. This is secondary to the hematuria. Hemoglobin is now 7.7 after 2 units of blood. 2. Soft tissue density in the bladder wall suspicious for urothelial carcinoma. 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 The recommending cystoscopy in the outpatient setting. 3. Leukocytosis: We will check urinalysis and chest x-ray. Repeat CBC in a.m. White blood cell 5.7 4. Dizziness and shortness of breath likely secondary to patient's anemia starting to show improvement 5. Diabetes mellitus with uncontrolled blood sugars. It is unclear if patient was taking his blood sugar medications at home. Patient is been restarted on his glipizide 5 mg 3 times a day and Tradjenta 5 mg daily. Continue with sliding scale coverage. Check hemoglobin A1c. Levemir 10 units daily has been added blood sugars have improved 6. Confusion and altered mental status possibly metabolic due to patient's anemia. CT completed showing degenerative and nonspecific white matter changes most of remote microvascular ischemia. Component of normal pressure hydrocephalus in the differential diagnosis. Per neurology services patient does not have the classic triad for communicating hydrocephalus suspect prominent ventricles are due to ex vacuo dilation and not normal pressure hydrocephalus. No further inpatient workup at this time 7. Essential hypertension: blood pressures are stable. continue with hydrochlorothiazide 8. Medical debility and unsteady gait. Consult PT OT 9. Possible pneumonia. Chest x-ray completed showing mild patchy bibasilar areas of atelectasis versus early infiltrates. Correlation will be needed to exclude a developing pneumonia particularly at the right base. Patient started on Rocephin pulmonary service is consulted 10. Hypokalemia potassium 3.2 replace per protocol DVT prophylaxis SCDs. GI prophylaxis Pepcid PT OT and social work services consulted Case was previously discussed with patient's granddaughter in detail I performed an examination of the patient and discussed their management with the Nurse Practitioner. I have reviewed the Nurse Practitioner's notes and agre e with the documented findings and plan of care
[2018-12-24] MEDS: INSULIN ASPART (NovoLOG) 100 UNIT/ML VIAL SQ SCH ×4 (11:00→21:42)
[2018-12-24 11:30] LABS: Glucose,Whole Blood 164 mg/dL (75-99)
[2018-12-24] MEDS: SODIUM CHLORIDE 0.9% 1,000 ML IV SCH (12:17)
[2018-12-24] MEDS: CARVEDILOL 6.25 MG TAB PO SCH ×2 (12:18→17:31)
[2018-12-24] MEDS: hydrALAZINE HCL 50 MG TAB PO SCH ×2 (12:18→17:31)
[2018-12-24] MEDS: glipiZIDE 5 MG TAB PO SCH ×3 (12:19→17:31)
[2018-12-24] MEDS: INSULIN DETEMIR (LEVEMIR) 100 UNIT/ML SYR SQ SCH (12:20)
[2018-12-24] MEDS: HYDROCHLOROTHIAZIDE 25 MG TAB PO SCH (12:20)
[2018-12-24] MEDS: LINAGLIPTIN 5 MG TABLET PO SCH (12:20)
[2018-12-24] MEDS: POTASSIUM CHLORIDE ER 20 MEQ TAB.ER PO SCH ×2 (12:22→13:11)
--- NOTE | 2018-12-24 13:52 | P.CNPUL ---
History of Present Illness Consult date: 12/24/18 Requesting physician: Raffi Hanson Reason for consult: other (Possible pneumonia) Chief complaint: Hematuria History of present illness: This is a very pleasant 83-year-old gentleman who follows with Dr. Hanson as his primary care physician. He has a history of diabetes mellitus, hypertension, small bowel obstruction with subsequent bowel resection and colostomy placement. He presented here from his primary care physician's office after having issues with confusion and dizziness. He was also complaining of lower back pain. He had recently fallen and was having trouble with hematuria and was following with urology. The plan is for cystoscopy in the outpatient setting. He was found to be quite anemic at the PCP office with a presenting hemoglobin of 5.2. He had received 2 units of packed red blood cells and his current hemoglobin is 7.2. A chest x-ray showed mild patchy bibasilar areas of atelectasis versus infiltrates. We're consulted for the same and possible pneumonia. The patient is seen today on the regular medical floor. He is currently sitting up at the bedside. Awake and alert in no acute distress. He denies any cough or congestion. No fever chills or night sweats. Maintaining O2 saturations in the 90s on room air. White count 5.7. Review of Systems REVIEW OF SYSTEMS: CONSTITUTIONAL: Denies any recent significant weight loss or weight gain. EYES: Denies change in vision. EARS, NOSE, MOUTH, THROAT: Denies headaches, denies sore throat. CARDIOVASCULAR: Denies chest pain, palpitations or syncopal episodes. RESPIRATORY: Denies shortness of breath, cough, congestion or hemoptysis. GASTROINTESTINAL: Denies change in appetite, denies abdominal pain GENITOURINARY: Positive for hematuria, denies infections. MUSKULOSKELETAL: Denies pain, denies swelling. INTEGUMENTARY: Denies rash, denies eczema. NEUROLOGICAL: Denies recent memory loss, no recent seizure activity. PSYCHIATRIC: Denies anxiety, denies depression. HEMATOLOGIC/LYMPHATIC: Positive for anemia, denies enlarged lymph nodes. Past Medical History Past Medical History: Diabetes Mellitus, Hypertension History of Any Multi-Drug Resistant Organisms: None Reported Past Surgical History: Bowel Resection Additional Past Surgical History / Comment(s): Sigmoid colostomy Past Anesthesia/Blood Transfusion Reactions: No Reported Reaction Past Psychological History: No Psychological Hx Reported Smoking Status: Former smoker Past Alcohol Use History: Occasional Past Drug Use History: None Reported - Past Family History Father History Unknown: Yes Mother Family Medical History: No Reported History Medications and Allergies Home Medications Medication Instructions Recorded Confirmed Type Aspirin EC [Ecotrin Low Dose] 81 mg PO DAILY 12/22/18 12/23/18 History Carvedilol [Coreg] 6.25 mg PO BID 12/22/18 12/23/18 History Hydrochlorothiazide [Hydrodiuril] 25 mg PO DAILY 12/22/18 12/23/18 History Linagliptin [Tradjenta] 5 mg PO DAILY 12/22/18 12/23/18 History glipiZIDE [Glucotrol] 5 mg PO AC-TID 12/22/18 12/23/18 History hydrALAZINE HCL 50 mg PO AC-BID 12/22/18 12/23/18 History Allergies Allergy/AdvReac Type Severity Reaction Status Date / Time No Known Allergies Allergy Verified 12/23/18 07:55 Physical Exam Vitals: Vital Signs Temp Pulse Resp BP Pulse Ox 12/24/18 12:02 98.1 F 59 L 20 150/58 96 12/24/18 07:57 97.9 F 81 20 138/78 94 L 12/23/18 19:44 98.4 F 73 146/66 97 Intake and Output 12/23/18 12/24/18 12/24/18 22:59 06:59 14:59 Intake Total 600 600 Balance 600 600 Intake: Oral 600 600 Other: Voiding Method Toilet Toilet # Voids 2 2 GENERAL EXAM: Alert, pleasant 83-year-old gentleman, active, comfortable in no apparent distress. On room air. HEAD: Normocephalic. EYES: Normal reaction of pupils, equal size. NOSE: Clear with pink turbinates. THROAT: No erythema or exudates. NECK: No masses, no JVD. CHEST: No chest wall deformity. LUNGS: Equal air entry with no crackles, wheeze, rhonchi or dullness. CVS: S1 and S2 normal with no audible murmur, regular rhythm. ABDOMEN: No hepatosplenomegaly, normal bowel sounds, no guarding or rigidity. SPINE: No scoliosis or deformity SKIN: No rashes CENTRAL NERVOUS SYSTEM: No focal deficits, tone is normal in all 4 extremities. EXTREMITIES: There is no peripheral edema. No clubbing, no cyanosis. Peripheral pulses are intact. Results - Laboratory Findings CBC and BMP: 12/24/18 07:20 12/24/18 07:20 Abnormal lab findings: Abnormal Labs 12/22/18 12/22/18 12/22/18 16:12 16:18 16:18 WBC RBC 1.96 L Hgb 5.2 L* D Hct 16.7 L* RDW 16.3 H Neutrophils # Lymphocytes # Sodium 135 L Potassium BUN 24 H Glucose 255 H POC Glucose (mg/dL) Hemoglobin A1c ALT Crossmatch See Detail 12/22/18 12/22/18 12/22/18 16:18 17:26 21:08 WBC RBC Hgb Hct RDW Neutrophils # Lymphocytes # Sodium Potassium BUN Glucose POC Glucose (mg/dL) 273 H 200 H Hemoglobin A1c 7.2 H ALT Crossmatch 12/23/18 12/23/18 12/23/18 07:21 08:28 08:28 WBC 11.7 H RBC 2.75 L Hgb 7.7 L D Hct 23.5 L RDW 16.1 H Neutrophils # 9.9 H Lymphocytes # 0.9 L Sodium 136 L Potassium BUN Glucose 245 H POC Glucose (mg/dL) 270 H Hemoglobin A1c ALT Crossmatch 12/23/18 12/23/18 12/23/18 11:37 17:18 20:00 WBC RBC Hgb Hct RDW Neutrophils # Lymphocytes # Sodium Potassium BUN Glucose POC Glucose (mg/dL) 235 H 183 H 152 H Hemoglobin A1c ALT Crossmatch 12/24/18 12/24/18 12/24/18 07:13 07:20 07:20 WBC RBC 2.64 L Hgb 7.2 L Hct 22.6 L RDW 16.5 H Neutrophils # Lymphocytes # Sodium Potassium 3.2 L BUN Glucose 110 H POC Glucose (mg/dL) 122 H Hemoglobin A1c ALT 13 L Crossmatch 12/24/18 11:28 WBC RBC Hgb Hct RDW Neutrophils # Lymphocytes # Sodium Potassium BUN Glucose POC Glucose (mg/dL) 164 H Hemoglobin A1c ALT Crossmatch - Diagnostic Findings Chest x-ray: image reviewed Assessment and Plan Assessment: Impression: #1 Acute anemia secondary to hematuria secondary to trauma. Also noted to have a possible urothelial carcinoma. Current hemoglobin 7.2. Status post 2 units of packed red blood cell transfusions. No further hematuria. Plan is for cy stoscopy in the outpatient setting. #2 Bibasilar areas of atelectasis with no clear evidence of pneumonia. #3 Diabetes mellitus, type II. #4 Hypertension. #5 Medical debility and unsteady gait. Plan: The patient was seen and evaluated by Dr. Baig. Chest x-ray, labs and vital signs are reviewed. No clear evidence of pneumonia. Discharge planning is in place. We'll see the patient on as-needed basis. I, the cosigning physician, performed a history & physical examination of the patient. Lungs sounds are clear. Maintaining good O2 saturations in the 90s on room air. I discussed the assessment and plan of care with my nurse practitioner, Denita Lee. I attest to the above note as dictated by her. Time with Patient: Greater than 30
[2018-12-24 17:17] LABS: Glucose,Whole Blood 194 mg/dL (75-99)
[2018-12-24 17:26] LABS: Appearance,Urine Clear (Clear); Bilirubin,Urine Negative (Negative); Blood,Urine Negative (Negative); Color,Urine Yellow; Glucose,Urine (UA) 1+ (Negative); Ketones,Urine Negative (Negative); Leukocyte Esterase,Urine Negative (Negative); Nitrite,Urine Negative (Negative); Protein,Urine Negative (Negative); Specific Gravity,Urine 1.015 (1.001-1.035); Urobilinogen,Urine <2.0 mg/dL (<2.0)
[2018-12-24 20:35] LABS: Glucose,Whole Blood 167 mg/dL (75-99)
[2018-12-25] MEDS: SODIUM CHLORIDE 0.9% 1,000 ML IV SCH (05:31)
[2018-12-25 07:24] LABS: Glucose,Whole Blood 138 mg/dL (75-99)
[2018-12-25 08:17] LABS: Anisocytosis Slight; HCT 21.4 % (39.0-53.0); Hypochromasia Marked; MCH 27.8 pg (25.0-35.0); MCHC 31.7 g/dL (31.0-37.0); MCV 87.6 fL (80.0-100.0); Mean Platelet Volume 8.9; Platelet Count 244 k/uL (150-450); Poikilocytosis Marked; RBC 2.44 m/uL (4.30-5.90); RDW 17.1 % (11.5-15.5); WBC 4.8 k/uL (3.8-10.6)
[2018-12-25 08:22] LABS: Albumin 3.1 g/dL (3.5-5.0); Calcium 8.6 mg/dL (8.4-10.2); HGB 6.8 gm/dL (13.0-17.5); Potassium 3.5 mmol/L (3.5-5.1); Total Bilirubin 0.6 mg/dL (0.2-1.3)
[2018-12-25] MEDS: glipiZIDE 5 MG TAB PO SCH ×3 (08:37→18:05)
[2018-12-25] MEDS: INSULIN DETEMIR (LEVEMIR) 100 UNIT/ML SYR SQ SCH (08:37)
[2018-12-25] MEDS: INSULIN ASPART (NovoLOG) 100 UNIT/ML VIAL SQ SCH ×4 (08:37→20:28)
[2018-12-25] MEDS: CARVEDILOL 6.25 MG TAB PO SCH ×2 (08:37→18:05)
[2018-12-25] MEDS: hydrALAZINE HCL 50 MG TAB PO SCH ×2 (08:38→18:05)
[2018-12-25] MEDS: HYDROCHLOROTHIAZIDE 25 MG TAB PO SCH (08:38)
[2018-12-25] MEDS: FAMOTIDINE 20 MG TAB PO SCH (08:38)
[2018-12-25] MEDS: LINAGLIPTIN 5 MG TABLET PO SCH (08:38)
[2018-12-25] MEDS: POTASSIUM CHLORIDE ER 20 MEQ TAB.ER PO SCH ×2 (08:41→10:52)
[2018-12-25 09:20] LABS: Lymphocytes # (M) 1.44 k/uL (1.0-4.8); Monocytes # (M) 0.34 k/uL (0-1.0); Neutrophils % (M) 63 %; Nucleated Red Blood Cells 0 /100 WBC (0-0); Rouleaux Present; Total Cells Counted 100
[2018-12-25 09:21] LABS: Polychromasia Present
[2018-12-25] MEDS ORDERED: FUROSEMIDE 10 MG/ML 2 ML VIAL IV ONE (09:49)
--- NOTE | 2018-12-25 10:01 | P.PN ---
Subjective Progress Note Date: 12/25/18 This is a 83-year-old male with a known history of diabetes mellitus, hypertension, small bowel obstruction requiring bowel resection and colostomy placement. Patient had a fall in September hitting his back. He reports since then having blood in his urine. He has been undergoing workup in the outpatient se [facility]. He was seen by Dr. Ritter and had a CT urogram completed showing a benign 1.8 cm left lower pole renal cortical cyst. A 3.5 x 1.3 cm soft tissue density intraluminal filling defect near the left posterior bladder wall. Clot, fungus ball, a neoplasm are in the differential. Tiny hernia, cholelithiasis and mild splenomegaly noted. Patient was a direct admit from the office due to a hemogl obin of 5.1. He been having significant hematuria with blood clots since September. Patient was brought in by the granddaughter. She was concerned because patient was more confused and dizzy. He was having difficulty with ambulating and complaining of lower back pain. This was omitted to the hospital receive 2 units of blood with Lasix in between. Hemoglobin has gone up from 5.2-7.7. Patient seen by urology the recommending cystoscopy outpatient. White count is elevated 11.7 today. Patient is still having confusion. He reports feeling better than yesterday but still having some dizziness and shortness of breath. He denies any chest pain. She denies any nausea or vomiting or bowel movement changes. Denies any burning with urination. Hematuria has resolved. Patient denies any fevers chills or sweats. On 12/24/2018 patient had increased confusion throughout the night requiring At brynn. Patient is currently resting comfortably in bed. Patient was evaluated by neurology services. Hemoglobin is currently 7.2. Patient is currently maintained on Rocephin for possible pneumonia. Pulmonary services have been consulted. At this time patient denies any complaints 12/25/2018 patient sitting up at bedside chair. Still having some mild dizziness. Hemoglobin is 6.8. He'll receive another unit of blood followed by Lasix. Patient in denies any hematuria. Also checking stool for occult blood. Denies any chest pain or shortness of breath. Does admit to mild cough. Denies any nausea or vomiting, bowel movement changes or urinary symptoms. Urinalysis was negative. Patient seen by neurology regarding computed tomography scan of the brain they doubted that patient has normal pressure hydrocephalus. He does not meet symptom criteria. Patient did better through the night. He is less confused. Objective - Vital Signs Vital signs: Vital Signs Temp 97.9 F 12/25/18 05:00 Pulse 77 12/25/18 05:00 Resp 16 12/25/18 05:00 BP 138/61 12/25/18 05:00 Pulse Ox 97 12/25/18 05:00 Intake & Output 12/24/18 12/25/18 12/25/18 18:59 06:59 18:59 Intake Total 250 840 Balance 250 840 Intake: Intake, IV Titration 250 250 Amount Sodium Chloride 0.9% 1, 200 250 000 ml @ 50 mls/hr IV . Q20H [facility] Rx#:[id number] cefTRIAXone 1 gm In 50 Sodium Chloride 0.9% 50 ml @ 100 mls/hr IVPB Q24HR [facility] Rx#:[id number] Oral 590 Other: Voiding Method Toilet Toilet # Voids 2 # Bowel Movements 1 - Exam Head normocephalic Neck supple Lungs clear to auscultation bilaterally no wheezing or crackles Heart regular rate and rhythm S1-S2, no rub or gallop Abdomen is soft nontender nondistended positive bowel sounds no hepatosplenomegaly Extremities no edema Neuro alert and orientated to 3 - Labs CBC & Chem 7: 12/25/18 07:35 12/25/18 07:35 Labs: Abnormal Lab Results - Last 24 Hours (Table) 12/22/18 12/24/18 12/24/18 Range/Units 16:12 07:20 11:28 RBC 2.64 L (4.30-5.90) m/uL Hgb 7.2 L (13.0-17.5) gm/dL Hct 22.6 L (39.0-53.0) % RDW 16.5 H (11.5-15.5) % BUN (9-20) mg/dL Glucose (74-99) mg/dL POC Glucose (mg/dL) 164 H (75-99) mg/dL AST (17-59) U/L ALT (21-72) U/L Total Protein (6.3-8.2) g/dL Albumin (3.5-5.0) g/dL Urine Glucose (UA) (Negative) Crossmatch See Detail 12/24/18 12/24/18 12/24/18 Range/Units 17:07 17:16 20:34 RBC (4.30-5.90) m/uL Hgb (13.0-17.5) gm/dL Hct (39.0-53.0) % RDW (11.5-15.5) % BUN (9-20) mg/dL Glucose (74-99) mg/dL POC Glucose (mg/dL) 194 H 167 H (75-99) mg/dL AST (17-59) U/L ALT (21-72) U/L Total Protein (6.3-8.2) g/dL Albumin (3.5-5.0) g/dL Urine Glucose (UA) 1+ H (Negative) Crossmatch 12/25/18 12/25/18 12/25/18 Range/Units 07:22 07:35 07:35 RBC 2.44 L (4.30-5.90) m/uL Hgb 6.8 L* (13.0-17.5) gm/dL Hct 21.4 L (39.0-53.0) % RDW 17.1 H (11.5-15.5) % BUN 22 H (9-20) mg/dL Glucose 116 H (74-99) mg/dL POC Glucose (mg/dL) 138 H (75-99) mg/dL AST 14 L (17-59) U/L ALT 20 L (21-72) U/L Total Protein 6.0 L (6.3-8.2) g/dL Albumin 3.1 L (3.5-5.0) g/dL Urine Glucose (UA) (Negative) Crossmatch Assessment and Plan Assessment: 1. Acute blood loss anemia with a hemoglobin of 5.1 in the office. This is secondary to the hematuria. Patient has received blood transfusions during his admission. Hemoglobin again has dropped from 7.2-6.8. He'll receive another unit of blood with Lasix. Repeat CBC in a.m. Also will check a stool for occult blood. 2. Soft tissue density in the bladder wall suspicious for urothelial carcinoma. 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 They are recommending cystoscopy in the outpatient s etting. 3. Leukocytosis: WBC has normalized. Urinalysis is negative. Chest x-ray was suspicious for possible pneumonia and patient started on Rocephin. 4. Dizziness and shortness of breath likely secondary to patient's anemia starting to show improvement 5. Diabetes mellitus with uncontrolled blood sugars. A1c is 7.2. Blood sugars are doing better. Blood sugar this morning is 138. Patient is been restarted on his glipizide 5 mg 3 times a day and Tradjenta 5 mg daily. Continue with s liding scale coverage. Continue Levemir 10 units daily . Pulmonary during this admission 6. Confusion and altered mental status possibly metabolic due to patient's anemia. CT completed showing degenerative and nonspecific white matter changes most of remote microvascular ischemia. Component of normal pressure hydrocephalus in the differential diagnosis. Per neurology services patient does not have the classic triad for communicating hydrocephalus suspect prominent ventricles are due to ex vacuo dilation and not normal pressure hydrocephalus. No further inpatient workup at this time 7. Essential hypertension: blood pressures are stable. continue with hydrochlorothiazide 8. Medical debility and unsteady gait. Consult PT OT 9. Acute tracheobronchitis: Patient still has a mild cough. Continue Rocephin. Patient evaluated by pulmonary service and they doubt patient has pneumonia. White count has normal normalized. No fever. Possible pneumonia. 10. Hypokalemia : Potassium 3.5. Continue replacement protocol. Repeat labs in a.m. DVT prophylaxis SCDs. GI prophylaxis Pepcid PT OT and social work services consulted Awaiting physical therapy evaluation regarding need for possible placement Hep-Lock IV fluids I performed an examination of the patient and discussed their management with the physician Estimator Jewelry. I have reviewed the Physician Estimator Jewelry's notes and agree with the documented findings and plan of care
[2018-12-25 11:08] LABS: Glucose,Whole Blood 200 mg/dL (75-99)
[2018-12-25 17:26] LABS: Glucose,Whole Blood 285 mg/dL (75-99)
[2018-12-25 20:04] LABS: Glucose,Whole Blood 228 mg/dL (75-99)
[2018-12-26 06:54] LABS: Glucose,Whole Blood 129 mg/dL (75-99)
[2018-12-26] MEDS: INSULIN ASPART (NovoLOG) 100 UNIT/ML VIAL SQ SCH ×4 (07:29→20:46)
[2018-12-26] MEDS: FAMOTIDINE 20 MG TAB PO SCH (08:15)
[2018-12-26] MEDS: glipiZIDE 5 MG TAB PO SCH ×3 (08:15→17:12)
[2018-12-26] MEDS: hydrALAZINE HCL 50 MG TAB PO SCH ×2 (08:16→17:12)
[2018-12-26] MEDS: HYDROCHLOROTHIAZIDE 25 MG TAB PO SCH (08:16)
[2018-12-26] MEDS: LINAGLIPTIN 5 MG TABLET PO SCH (08:16)
[2018-12-26] MEDS: INSULIN DETEMIR (LEVEMIR) 100 UNIT/ML SYR SQ SCH (08:16)
[2018-12-26] MEDS: CARVEDILOL 6.25 MG TAB PO SCH ×2 (08:20→17:12)
[2018-12-26 08:37] LABS: Basophils # (A) 0.1 k/uL (0-0.2); Basophils % (A) 1 %; Eosinophils # (A) 0.2 k/uL (0-0.7); Eosinophils % (A) 4 %; HCT 25.1 % (39.0-53.0); HGB 8.1 gm/dL (13.0-17.5); Hypochromasia Marked; Lymphocytes # (A) 1.2 k/uL (1.0-4.8); Lymphocytes % (A) 23 %; MCH 27.9 pg (25.0-35.0); MCHC 32.3 g/dL (31.0-37.0); MCV 86.3 fL (80.0-100.0); Mean Platelet Volume 7.9; Monocytes # (A) 0.4 k/uL (0-1.0); Monocytes % (A) 8 %; Neutrophils # (A) 3.1 k/uL (1.3-7.7); Neutrophils % (A) 62 %; Platelet Count 255 k/uL (150-450); Poikilocytosis Marked; RBC 2.91 m/uL (4.30-5.90); RDW 15.4 % (11.5-15.5); WBC 5.1 k/uL (3.8-10.6)
[2018-12-26 08:40] LABS: Albumin 3.3 g/dL (3.5-5.0); Calcium 8.8 mg/dL (8.4-10.2); Potassium 3.9 mmol/L (3.5-5.1); Total Bilirubin 0.8 mg/dL (0.2-1.3); Total Protein 6.3 g/dL (6.3-8.2)
[2018-12-26 11:18] LABS: Glucose,Whole Blood 216 mg/dL (75-99)
--- NOTE | 2018-12-26 12:53 | P.PN ---
Subjective Progress Note Date: 12/26/18 This is a 83-year-old male with a known history of diabetes mellitus, hypertension, small bowel obstruction requiring bowel resection and colostomy placement. Patient had a fall in September hitting his back. He reports since then having blood in his urine. He has been undergoing workup in the outpatient se [facility]. He was seen by Dr. Ritter and had a CT urogram completed showing a benign 1.8 cm left lower pole renal cortical cyst. A 3.5 x 1.3 cm soft tissue density intraluminal filling defect near the left posterior bladder wall. Clot, fungus ball, a neoplasm are in the differential. Tiny hernia, cholelithiasis and mild splenomegaly noted. Patient was a direct admit from the office due to a hemogl obin of 5.1. He been having significant hematuria with blood clots since September. Patient was brought in by the granddaughter. She was concerned because patient was more confused and dizzy. He was having difficulty with ambulating and complaining of lower back pain. This was omitted to the hospital receive 2 units of blood with Lasix in between. Hemoglobin has gone up from 5.2-7.7. Patient seen by urology the recommending cystoscopy outpatient. White count is elevated 11.7 today. Patient is still having confusion. He reports feeling better than yesterday but still having some dizziness and shortness of breath. He denies any chest pain. She denies any nausea or vomiting or bowel movement changes. Denies any burning with urination. Hematuria has resolved. Patient denies any fevers chills or sweats. On 12/24/2018 patient had increased confusion throughout the night requiring At brynn. Patient is currently resting comfortably in bed. Patient was evaluated by neurology services. Hemoglobin is currently 7.2. Patient is currently maintained on Rocephin for possible pneumonia. Pulmonary services have been consulted. At this time patient denies any complaints 12/25/2018 patient sitting up at bedside chair. Still having some mild dizziness. Hemoglobin is 6.8. He'll receive another unit of blood followed by Lasix. Patient in denies any hematuria. Also checking stool for occult blood. Denies any chest pain or shortness of breath. Does admit to mild cough. Denies any nausea or vomiting, bowel movement changes or urinary symptoms. Urinalysis was negative. Patient seen by neurology regarding computed tomography scan of the brain they doubted that patient has normal pressure hydrocephalus. He does not meet symptom criteria. Patient did better through the night. He is less confused. 12/26/2018 patient lying in bed comfortably. No new complaints. No further hematuria. He received 1 unit of blood yesterday hemoglobin is now 8.1. Patient is up and ambulating without difficulty. Physical therapy is recommending home care. Initially was planning for discharge today. However after speaking with the granddaughter who is helping take care of her gr andfather. The grandmother is now being brought to the emergency room and may need to be admitted to the hospital. Therefore the granddaughter is requesting that her grandfather stay at least one more day that she can get everybody situated. Objective - Vital Signs Vital signs: Vital Signs Temp 97.9 F 12/26/18 11:44 Pulse 66 12/26/18 11:44 Resp 17 12/26/18 11:44 BP 130/54 12/26/18 11:44 Pulse Ox 98 12/26/18 11:44 Intake & Output 12/25/18 12/26/18 12/26/18 18:59 06:59 18:59 Intake Total 1150 350 Balance 1150 350 Intake: Intake, IV Titration 600 Amount Sodium Chloride 0.9% 1, 600 000 ml @ 50 mls/hr IV . Q20H [facility] Rx#:[id number] Oral 240 350 Blood Product 310 Rc As-1 Unit 310 [id number] Other: Voiding Method Toilet Toilet # Voids 1 - Exam Head normocephalic Neck supple Lungs clear to auscultation bilaterally no wheezing or crackles Heart regular rate and rhythm S1-S2, no rub or gallop Abdomen is soft nontender nondistended positive bowel sounds no hepatosplenomegaly Extremities no edema Neuro alert and orientated to 3 - Labs CBC & Chem 7: 12/26/18 07:22 12/26/18 07:22 Labs: Abnormal Lab Results - Last 24 Hours (Table) 12/22/18 12/25/18 12/25/18 Range/Units 16:12 17:24 20:02 RBC (4.30-5.90) m/uL Hgb (13.0-17.5) gm/dL Hct (39.0-53.0) % BUN (9-20) mg/dL Glucose (74-99) mg/dL POC Glucose (mg/dL) 285 H 228 H (75-99) mg/dL AST (17-59) U/L ALT (21-72) U/L Albumin (3.5-5.0) g/dL Crossmatch See Detail 12/26/18 12/26/18 12/26/18 Range/Units 06:52 07:22 07:22 RBC 2.91 L (4.30-5.90) m/uL Hgb 8.1 L (13.0-17.5) gm/dL Hct 25.1 L (39.0-53.0) % BUN 25 H (9-20) mg/dL Glucose 121 H (74-99) mg/dL POC Glucose (mg/dL) 129 H (75-99) mg/dL AST 14 L (17-59) U/L ALT 15 L (21-72) U/L Albumin 3.3 L (3.5-5.0) g/dL Crossmatch 12/26/18 Range/Units 11:17 RBC (4.30-5.90) m/uL Hgb (13.0-17.5) gm/dL Hct (39.0-53.0) % BUN (9-20) mg/dL Glucose (74-99) mg/dL POC Glucose (mg/dL) 216 H (75-99) mg/dL AST (17-59) U/L ALT (21-72) U/L Albumin (3.5-5.0) g/dL Crossmatch Assessment and Plan Assessment: 1. Acute blood loss anemia with a hemoglobin of 5.1 in the office. This is secondary to the hematuria. Patient has received blood transfusions during his admission. Hemoglobin has improved from 6.8-8.1 after 1 unit of blood. Also will check a stool for occult blood. 2. Soft tissue density in the bladder wall suspicious for urothelial carcinoma. 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 They are recommending cystoscopy in the outpatient setting. Patient has appointment next Saturday 3. Leukocytosis: Likely related to acute bronchitis. Patient currently on Rocephin. WBC has normalized. Urinalysis is negative. 4. Dizziness and shortness of breath likely secondary to patient's anemia starting to show improvement 5. Diabetes mellitus with uncontrolled blood sugars. A1c is 7.2. Blood sugars are doing better. Patient is been restarted on his glipizide 5 mg 3 times a day and Tradjenta 5 mg daily. Continue with sliding scale coverage. Continue Levemir 10 units daily . Pulmonary during this admission 6. Confusion and altered mental status possibly metabolic due to patient's anemia. CT completed showing degenerative and nonspecific white matter changes most of remote microvascular ischemia. Component of normal pressure hydrocephalus in the differential diagnosis. Per neurology services patient does not have the classic triad for communicating hydrocephalus suspect prominent ventricles are due to ex vacuo dilation and not normal pressure hydrocephalus. No further inpatient workup at this time 7. Essential hypertension: blood pressures are stable. continue with hydrochlorothiazide 8. Medical debility and unsteady gait. Consult PT OT 9. Acute tracheobronchitis: Anticipate discharging home with Ceftin for 3 more days. Patient still has a mild cough. Continue Rocephin. Patient evaluated by pulmonary service and they doubt patient has pneumonia. White count has normal normalized. No fever. Possible pneumonia. 10. Hypokalemia : Improved with supplement DVT prophylaxis SCDs. GI prophylaxis Pepcid Planning for discharge home with home care tomorrow I performed an examination of the patient and discussed their management with the physician Turbine Room Attendant. I have reviewed the Physician Turbine Room Attendant's notes and agree with the documented findings and plan of care
--- NOTE | 2018-12-26 13:22 | P.DS ---
Providers Date of admission: 12/22/18 15:45 Expected date of discharge: 12/27/18 Attending physician: Raffi Hansno Consults: 12/22/18 16:07 Consult Physician Stat Consulting Provider: Sai Ritter Consult Reason/Comments: ? bladder density found on CT Do you want consulting provider notified?: Yes Placement Type Exists?: Yes 12/23/18 16:01 Consult Physician Routine Consulting Provider: Lizzette Loyd Consult Reason/Comments: Abnormal CT brain Do you want consulting provider notified?: Yes 12/24/18 09:54 Consult Physician Routine Consulting Provider: Rohan Baig Consult Reason/Comments: possible pneumonia Do you want consulting provider notified?: Yes Primary care physician: Raffi Hanson [facility] Course: Discharge diagnosis 1. Acute blood loss anemia with a hemoglobin of 5.1 in the office. This is secondary to the hematuria. Patient has received blood transfusions during his admission. Hemoglobin has improved from 6.8-8.1 after 1 unit of blood. 2. Soft tissue density in the bladder wall suspicious for urothelial carcinoma. 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 They are recommending cystoscopy in the outpatient setting. Patient has appointment next Saturday 3. Leukocytosis: Likely related to acute bronchitis. Patient currently on Rocephin. WBC has normalized. Urinalysis is negative. We'll place patient on Ceftin for 3 more days 4. Dizziness and shortness of breath likely secondary to patient's anemia starting to show improvement 5. Diabetes mellitus with uncontrolled blood sugars. A1c is 7.2. Blood sugars are doing better. Patient is been restarted on his glipizide 5 mg 3 times a day and Tradjenta 5 mg daily. Continue with sliding scale coverage. Continue Levemir 10 units daily . Pulmonary during this admission 6. Confusion and altered mental status possibly metabolic due to patient's anemia. CT completed showing degenerative and nonspecific white matter changes most of remote microvascular ischemia. Component of normal pressure hydrocephalus in the differential diagnosis. Per neurology services patient does not have the classic triad for communicating hydrocephalus suspect prominent ventricles are due to ex vacuo dilation and not normal pressure hydrocephalus. No further inpatient workup at this time 7. Essential hypertension: blood pressures are stable. continue with hydrochlorothiazide 8. Medical debility and unsteady gait. Consult PT OT 9. Acute tracheobronchitis: Anticipate discharging home with Ceftin for 3 more days. Patient still has a mild cough. Continue Rocephin. Patient evaluated by pulmonary service and they doubt patient has pneumonia. White count has normal normalized. No fever. 10. Hypokalemia : Improved with supplement Hospital course This is a 83-year-old male with a known history of diabetes mellitus, hypertension, small bowel obstruction requiring bowel resection and colostomy placement. Patient had a fall in September hitting his back. He reports since then having blood in his urine. He has been undergoing workup in the outpatient setting. He was seen by Dr. Ritter and had a CT urogram completed showing a benign 1.8 cm left lower pole renal cortical cyst. A 3.5 x 1.3 cm soft tissue density intraluminal filling defect near the left posterior bladder wall. Clot, fungus ball, a neoplasm are in the differential. Tiny hernia, cholelithiasis and mild splenomegaly noted. Patient was a direct admit from the office due to a hemoglobin of 5.1. He been having significant hematuria with blood clots since September. Patient was brought in by the granddaughter. She was concerned because patient was more confused and dizzy. He was having difficulty with ambulating and complaining of lower back pain. This was omitted to the hospital receive 2 units of blood with Lasix in between. Hemoglobin has gone up from 5.2-7.7. Patient seen by urology the recommending cystoscopy outpatient. White count is elevated 11.7 today. Patient is still having confusion. He reports feeling better than yesterday but still having some dizziness and shortness of breath. He denies any chest pain. She denies any nausea or vomiting or bowel movement changes. Denies any burning with urination. Hematuria has resolved. Patient denies any fevers chills or sweats. On 12/24/2018 patient had increased confusion throughout the night requiring Ativan. Patient is currently resting comfortably in bed. Patient was evaluated by neurology services. Hemoglobin is currently 7.2. Patient is currently maintained on Rocephin for possible pneumonia. Pulmonary services have been consulted. At this time patient denies any complaints 12/25/2018 patient sitting up at bedside chair. Still having some mild dizziness. Hemoglobin is 6.8. He'll receive another unit of blood followed by Lasix. Patient in denies any hematuria. Also checking stool for occult blood. Denies any chest pain or shortness of breath. Does admit to mild cough. Denies any nausea or vomiting, bowel movement changes or urinary symptoms. Urinalysis was negative. Patient seen by neurology regarding computed tomography scan of the brain they doubted that patient has normal pressure hydrocephalus. He does not meet symptom criteria. Patient did better through the night. He is less confused. 12/26/2018 patient lying in bed comfortably. No new complaints. No further hematuria. He received 1 unit of blood yesterday hemoglobin is now 8.1. Patient is up and ambulating without difficulty. Physical therapy is recommending home care. Initially was planning for discharge today. However after speaking with the granddaughter who is helping take care of her grandfather. The grandmother is now being brought to the emergency room and may need to be admitted to the hospital. Therefore the granddaughter is requesting that her grandfather stay at least one more day that she can get everybody situ ated. Anticipating discharge on 12/27/2018. Patient be following up with urology regarding the hematuria and soft tissue density in the bladder noted on CAT scan. He'll require a cystoscopy. Hold aspirin for now. Patient will be discharged with a prescription for a glucometer. His glucometer at home has broke. Recommend checking blood sugars 3 times a day. He did have some elevated blood sugars during this admission. He did require Levemir during his hospitalization. At this time we'll continue with his glipizide 5 mg 3 times a day and Tradjenta 5 mg daily. Check blood sugars 3 times a day before meals at home. And will follow up with those results in the office. Patient will be discharged home with home care. Check CBC in 1 week in the office with Dr. Hanson Follow-up with urology on Saturday for cystoscopy I performed an examination of the patient and discussed their management with the physician Street Cleaning Equipment Operator. I have reviewed the Physician Street Cleaning Equipment Operator's notes and agree with the documented findings and plan of care Patient Condition at Discharge: Stable Plan - Discharge Summary New Discharge Prescriptions: New Cefuroxime Axetil [Ceftin] 500 mg PO BID 3 Days #6 tab Continue hydrALAZINE HCL 50 mg PO AC-BID glipiZIDE [Glucotrol] 5 mg PO AC-TID Linagliptin [Tradjenta] 5 mg PO DAILY Carvedilol [Coreg] 6.25 mg PO BID Hydrochlorothiazide [Hydrodiuril] 25 mg PO DAILY Discontinued Aspirin EC [Ecotrin Low Dose] 81 mg PO DAILY Discharge Medication List Carvedilol [Coreg] 6.25 mg PO BID 12/22/18 [History] Hydrochlorothiazide [Hydrodiuril] 25 mg PO DAILY 12/22/18 [History] Linagliptin [Tradjenta] 5 mg PO DAILY 12/22/18 [History] glipiZIDE [Glucotrol] 5 mg PO AC-TID 12/22/18 [History] hydrALAZINE HCL 50 mg PO AC-BID 12/22/18 [History] Cefuroxime Axetil [Ceftin] 500 mg PO BID 3 Days #6 tab 12/26/18 [Rx] Follow up Appointment(s)/Referral(s): Raffi Hanson MD [Primary Care Provider] - 1 Week Sai Ritter MD [STAFF PHYSICIAN] - 12/30/18 Activity/Diet/Wound Care/Special Instructions: Diet: diabetic diet Activity: as tolerated Check Blood sugar TID before meals Check CBC in [address] Hanson's office Discharge Disposition: HOME WITH HOME HEALTH SERVICES
[2018-12-26] MEDS: metFORMIN 500 MG TAB PO SCH (17:12)
[2018-12-26 17:19] LABS: Glucose,Whole Blood 179 mg/dL (75-99)
[2018-12-26 20:07] LABS: Glucose,Whole Blood 204 mg/dL (75-99)
[2018-12-27 05:04] VITALS: RESP 18
[2018-12-27 06:55] LABS: Glucose,Whole Blood 133 mg/dL (75-99)
[2018-12-27 08:03] LABS: Albumin 3.3 g/dL (3.5-5.0); Calcium 8.8 mg/dL (8.4-10.2); Potassium 3.8 mmol/L (3.5-5.1); Total Bilirubin 0.6 mg/dL (0.2-1.3); Total Protein 6.4 g/dL (6.3-8.2)
[2018-12-27 08:12] LABS: Basophils % (A) 1 %; Eosinophils # (A) 0.2 k/uL (0-0.7); Eosinophils % (A) 5 %; HCT 25.8 % (39.0-53.0); HGB 8.5 gm/dL (13.0-17.5); Hypochromasia Marked; Lymphocytes % (A) 22 %; MCH 28.2 pg (25.0-35.0); MCHC 32.9 g/dL (31.0-37.0); MCV 85.7 fL (80.0-100.0); Mean Platelet Volume 7.7; Monocytes # (A) 0.4 k/uL (0-1.0); Monocytes % (A) 9 %; Neutrophils # (A) 2.7 k/uL (1.3-7.7); Neutrophils % (A) 61 %; Platelet Count 251 k/uL (150-450); Poikilocytosis Moderate; RBC 3.01 m/uL (4.30-5.90); RDW 15.2 % (11.5-15.5); WBC 4.4 k/uL (3.8-10.6)
[2018-12-27] MEDS: hydrALAZINE HCL 50 MG TAB PO SCH (08:15)
[2018-12-27] MEDS: metFORMIN 500 MG TAB PO SCH (08:15)
[2018-12-27] MEDS: INSULIN DETEMIR (LEVEMIR) 100 UNIT/ML SYR SQ SCH (08:15)
[2018-12-27] MEDS: INSULIN ASPART (NovoLOG) 100 UNIT/ML VIAL SQ SCH ×2 (08:15→12:41)
[2018-12-27] MEDS: CARVEDILOL 6.25 MG TAB PO SCH (08:16)
[2018-12-27] MEDS: FAMOTIDINE 20 MG TAB PO SCH (08:16)
[2018-12-27] MEDS: glipiZIDE 5 MG TAB PO SCH ×2 (08:16→12:41)
[2018-12-27] MEDS: HYDROCHLOROTHIAZIDE 25 MG TAB PO SCH (08:16)
[2018-12-27] MEDS: LINAGLIPTIN 5 MG TABLET PO SCH (08:16)
[2018-12-27 11:35] LABS: Glucose,Whole Blood 205 mg/dL (75-99)
[2018-12-27 12:08] VITALS: BP 127/59; PULSE 83; TEMP 96
--- NOTE | 2018-12-27 13:54 | P.PN ---
Subjective Progress Note Date: 12/27/18 This is a 83-year-old male with a known history of diabetes mellitus, hypertension, small bowel obstruction requiring bowel resection and colostomy placement. Patient had a fall in September hitting his back. He reports since then having blood in his urine. He has been undergoing workup in the outpatient s etting. He was seen by Dr. Ritter and had a CT urogram completed showing a benign 1.8 cm left lower pole renal cortical cyst. A 3.5 x 1.3 cm soft tissue density intraluminal filling defect near the left posterior bladder wall. Clot, fungus ball, a neoplasm are in the differential. Tiny hernia, cholelithiasis and mild splenomegaly noted. Patient was a direct admit from the office due to a hemoglobin of 5.1. He been having significant hematuria with blood clots since September. Patient was brought in by the granddaughter. She was concerned because patient was more confused and dizzy. He was having difficulty with ambulating and complaining of lower back pain. This was omitted to the hospital receive 2 units of blood with Lasix in between. Hemoglobin has gone up from 5.2-7.7. Patient seen by urology the recommending cystoscopy outpatient. White count is elevated 11.7 today. Patient is still having confusion. He reports feeling better than yesterday but still having some dizziness and shortness of breath. He denies any chest pain. She denies any nausea or vomiting or bowel movement changes. Denies any burning with urination. Hematuria has resolved. Patient denies any fevers chills or sweats. On 12/24/2018 patient had increased confusion throughout the night requiring A tivan. Patient is currently resting comfortably in bed. Patient was evaluated by neurology services. Hemoglobin is currently 7.2. Patient is currently maintained on Rocephin for possible pneumonia. Pulmonary services have been consulted. At this time patient denies any complaints 12/25/2018 patient sitting up at bedside chair. Still having some mild dizziness. Hemoglobin is 6.8. He'll receive another unit of blood followed by Lasix. Patient in denies any hematuria. Also checking stool for occult blood. Denies any chest pain or shortness of breath. Does admit to mild cough. Denies any nausea or vomiting, bowel movement changes or urinary symptoms. Urinalysis was negative. Patient seen by neurology regarding computed tomography scan of the brain they doubted that patient has normal pressure hydrocephalus. He does not meet symptom criteria. Patient did better through the night. He is less confused. 12/26/2018 patient lying in bed comfortably. No new complaints. No further hematuria. He received 1 unit of blood yesterday hemoglobin is now 8.1. Patient is up and ambulating without difficulty. Physical therapy is recommending home care. Initially was planning for discharge today. However after speaking with the granddaughter who is helping take care of her g randfather. The grandmother is now being brought to the emergency room and may need to be admitted to the hospital. Therefore the granddaughter is requesting that her grandfather stay at least one more day that she can get everybody situated. On 12/27/2018 patient was seen and examined on the medical floor he is alert and oriented 3 in no apparent distress he denies any complaints at this time there is no fever or chills no headache or dizziness no chest pain no shortness of breath no cough no nausea or vomiting no abdominal pain no diarrhea no burning with urination no frequency or urgency and no hematuria hemoglobin is up to 8.5 granddaughter was contacted by the nurse and she is able to come to take him home today. Objective - Vital Signs Vital signs: Vital Signs Temp 96.0 F L 12/27/18 11:43 Pulse 83 12/27/18 11:43 Resp 18 12/27/18 11:43 BP 127/59 12/27/18 11:43 Pulse Ox 92 L 12/27/18 11:43 Intake & Output 12/26/18 12/27/18 12/27/18 18:59 06:59 18:59 Intake Total 100 410 Balance 100 410 Intake: Intake, IV Titration 100 Amount cefTRIAXone 1 gm In 100 Sodium Chloride 0.9% 50 ml @ 100 mls/hr IVPB Q24HR [facility] Rx#:[id number] Oral 410 Other: Voiding Method Toilet Toilet Toilet # Voids 2 2 # Bowel Movements 1 - Exam In general patient is alert and oriented 3 in no apparent distress HEENT head normocephalic and atraumatic Neck is supple no JVD no goiter no lymphadenopathy Chest exam reveals a few scattered crackles no wheezing Cardiac exam reveals regular heart sounds no gallops no murmurs Abdomen is soft nontender no organomegaly was normal bowel sounds Extremity exam reveals no edema no cyanosis or clubbing - Labs CBC & Chem 7: 12/27/18 07:24 12/27/18 07:24 Labs: Abnormal Lab Results - Last 24 Hours (Table) 12/26/18 12/26/18 12/27/18 Range/Units 17:18 20:06 06:54 RBC (4.30-5.90) m/uL Hgb (13.0-17.5) gm/dL Hct (39.0-53.0) % BUN (9-20) mg/dL Glucose (74-99) mg/dL POC Glucose (mg/dL) 179 H 204 H 133 H (75-99) mg/dL AST (17-59) U/L ALT (21-72) U/L Albumin (3.5-5.0) g/dL 12/27/18 12/27/18 12/27/18 Range/Units 07:24 07:24 11:33 RBC 3.01 L (4.30-5.90) m/uL Hgb 8.5 L (13.0-17.5) gm/dL Hct 25.8 L (39.0-53.0) % BUN 23 H (9-20) mg/dL Glucose 129 H (74-99) mg/dL POC Glucose (mg/dL) 205 H (75-99) mg/dL AST 16 L (17-59) U/L ALT 20 L (21-72) U/L Albumin 3.3 L (3.5-5.0) g/dL Assessment and Plan Plan: 1. Acute blood loss anemia with a hemoglobin of 5.1 in the office. This is secondary to the hematuria. Patient has received blood transfusions during his admission. Hemoglobin has improved from 6.8-8.1 after 1 unit of blood. Also will check a stool for occult blood. 2. Soft tissue density in the bladder wall suspicious for urothelial carcinoma. 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 They are recommending cystoscopy in the outpatient setting. Patient has appointment next Saturday 3. Leukocytosis: Likely related to acute bronchitis. Patient currently on Rocephin. WBC has normalized. Urinalysis is negative. 4. Dizziness and shortness of breath likely secondary to patient's anemia starting to show improvement 5. Diabetes mellitus with uncontrolled blood sugars. A1c is 7.2. Blood sugars are doing better. Patient is been restarted on his glipizide 5 mg 3 times a day and Tradjenta 5 mg daily. Continue with sliding scale coverage. Continue Levemir 10 units daily . Pulmonary during this admission 6. Confusion and altered mental status possibly metabolic due to patient's anemia. CT completed showing degenerative and nonspecific white matter changes most of remote microvascular ischemia. Component of normal pressure hydrocephalus in the differential diagnosis. Per neurology services patient d oes not have the classic triad for communicating hydrocephalus suspect prominent ventricles are due to ex vacuo dilation and not normal pressure hydrocephalus. No further inpatient workup at this time 7. Essential hypertension: blood pressures are stable. continue with hydrochlorothiazide 8. Medical debility and unsteady gait. Consult PT OT 9. Acute tracheobronchitis: Anticipate discharging home with Ceftin for 3 more days. Patient still has a mild cough. Continue Rocephin. Patient evaluated by pulmonary service and they doubt patient has pneumonia. White count has normal normalized. No fever. Possible pneumonia. 10. Hypokalemia : Improved with supplement DVT prophylaxis SCDs. GI prophylaxis Pepcid
--- NOTE | 2018-12-30 10:15 | CDI ---
Documentation Clarification Form Date: 12/30/18 From: Kendy Hernandez Phone: If you have a question regarding this query, please contact Lisa Gomez at [phone] between 8am and 5pm. Admit Date: 12/22/2018 3:45:00 PM Patient Name: Aracelis Melchor Visit Number: [id number] Discharge Date: 12/27/2018 4:55:00 PM ATTENTION: The Clinical Documentation Specialists (CDI) and [facility] Coding Staff appreciate your assistance in clarifying documentation. Please respond to the clarification below the line at the bottom and electronically sign. The CDI & [facility] Coding staff will review the response and follow-up if needed. Please note: Queries are made part of the Legal Health Record. If you have any questions, please contact the author of this message via ITS. Dr. Raffi Hanson Altered Mental Status was documented in the H&P, discharge summary and your progress notes. In your discharge summary you documented that the confusion was possibly metabolic due to patient's anemia. Per neurology patient does not have the classic triad for communicating hydrocephalus suspect prominent ventricles due to ex vacuo dilation. History/Risk Factors: Acute blood loss anemia Clinical Indicators: Confusion Labs: Hgb 5.2, Hct 16.7 CT: Degenerative and nonspecific white matter changes most typical of remote microvascular ischemia. Component abnormal pressure hydrocephalus in the differential diagnosis. Treatment: Transfusion for the ABL anemia. In your professional opinion, please clarify the etiology of the Altered Mental Status, if known. Delirium (specify cause): Dementia (if know, specify Type and if with/without Behavioral Disturbance) Encephalopathy (specify Type and Underlying Medical Illness) Other condition (please specify) Unable to determine encephalopathy related to patient's anemia MTDD
== END 2018-12-27 16:55 | disposition home health service (06) | DRG 811 ==
LOC: 3NMEDONC 15:45
PROVIDERS: ADMIT Internal Medicine; ATTEND Internal Medicine
PROC: 30233N1 Transfusion of Nonautologous Red Blood Cells into Peripheral Vein, Percutaneous Approach (ICD-10-PCS; principal; 2018-12-22)
DX: D62 Acute posthemorrhagic anemia (principal); G93.41 Metabolic encephalopathy; J98.11 Atelectasis; E11.65 Type 2 diabetes mellitus with hyperglycemia; R31.0 Gross hematuria; J20.9 Acute bronchitis, unspecified; N28.1 Cyst of kidney, acquired; R16.1 Splenomegaly, not elsewhere classified; C67.9 Malignant neoplasm of bladder, unspecified; E87.6 Hypokalemia; I10 Essential (primary) hypertension; R53.81 Other malaise; R26.2 Difficulty in walking, not elsewhere classified; K80.20 Calculus of gallbladder without cholecystitis without obstruction; Z79.82 Long term (current) use of aspirin; Z79.899 Other long term (current) drug therapy; Z79.84 Long term (current) use of oral hypoglycemic drugs; Z87.891 Personal history of nicotine dependence; Z91.81 History of falling; Z93.3 Colostomy status; Z90.49 Acquired absence of other specified parts of digestive tract
CPT/HCPCS: 70450; 71046; 80048; 80053; 81003; 83036; 85025; 86850; 86900; 86901; 86920

== ENCOUNTER 2019-12-02 11:47 | Inpatient (IN) | payer MEDICARE, OTHER ==
[2019-12-02] MEDS ORDERED: ASPIRIN 81 MG PO STA (12:14)
--- NOTE | 2019-12-02 12:18 | ED ---
General Adult HPI - General Chief complaint: Chest Pain Stated complaint: SOB, cough, body aches Time Seen by Provider: 12/02/19 12:06 Source: patient Mode of arrival: ambulatory Limitations: no limitations - History of Present Illness Initial comments: Dictation was produced using [employer] dictation software. please excuse any grammatical, word or spelling errors. This patient was cared for during a federal and state declared state of emergency secondary to Covid 19 Chief Complaint: 84-year-old male past medical history of diabetes and hypertension presents with chest pain, shortness of breath and myalgias History of Present Illness: History is limited secondary to leg which barrier. Patient is an 84-year-old male who has past medical history of diabetes, hypertension and bowel resection. Patient reports that 2 or 3 days ago he had chest pain while cutting his lawn. Patient states that at that time he began developing substernal chest pressure, myalgias and shortness of breath. Patient denies any history of blood clots. He does not take any anticoagulation medications. Patient has any history of heart attacks. He states that he has soreness to his bilateral lower extremities. Patient states that his pain is st ill present, however it hasn't gotten more severe. Patient denies any fever, chills, night sweats or coughing. Denies any nausea or vomiting. The ROS documented in this emergency department record has been reviewed and confirmed by me. Those systems with pertinent positive or negative responses have been documented in the HPI. All other systems are other negative and/or noncontributory. PHYSICAL EXAM: General Impression: Alert and oriented x3, not in acute distress HEENT: Normocephalic atraumatic, extra-ocular movements intact, pupils equal and reactive to light bilaterally, mucous membranes moist. Cardiovascular: Heart regular rate and rhythm Chest: Able to complete full sentences, no retractions, no tachypnea Abdomen: abdomen soft, non-tender, non-distended, no organomegaly Musculoskeletal: Pulses present and equal in all extremities, no peripheral edema Motor: no focal deficits noted Neurological: CN II-XII grossly intact, no focal motor or sensory deficits noted Skin: Intact with no visualized rashes Psych: Normal affect and mood ED course: 84-year-old male presents with chest pain, shortness of breath and diffuse myalgias. Vital signs upon arrival are within acceptable limits. EKG shows right bundle branch block with sinus arrhythmia. There is no old EKG for comparison. Patient's medications are reviewed. Laboratory evaluation obtained. Hemoglobin stable. Rest of CBC is unremarkable. Coag panel is negative. D-dimer is elevated at 2.05. Metabolic panel shows mild hypomagnesemia with the level I.4. Brain natruretic peptide is 1750. Troponin is 0.015. Chest x-ray unremarkable. CT angio shows no findings to suggest pulmonary embolism. There were incidental findings of hypertension within the gallbladder concerning for cholelithiasis. Patient does not have any right upper quadrant pain. Labs also does not suggest acute cholecystitis. Elevated BNP suggestive of new onset heart failure. Patient be admitted for serial troponins and cardiac consultation. Patient given aspirin. Patient is agreeable to disposition. Patient will be admitted to Dr. Hanson service. EKG interpretation: Ventricular rate 69, sinus rhythm, AL interval 240, QRS 134, QTC 490, right bundle branch block. No AL prolongation, no QTC prolongation, no ST or T-wave changes noted. No old EKG for comparison. Overall, this EKG is unremarkable - Related Data Home Medications Medication Instructions Recorded Confirmed carvediloL [Coreg] 6.25 mg PO BID 12/22/18 12/02/19 glipiZIDE [Glucotrol] 5 mg PO AC-TID 12/22/18 12/02/19 hydrALAZINE HCL 50 mg PO AC-BID 12/22/18 12/02/19 hydroCHLOROthiazide [Hydrodiuril] 25 mg PO DAILY 12/22/18 12/02/19 sitaGLIPtin [Januvia] 50 mg PO DAILY 12/02/19 12/02/19 Previous Rx's Medication Instructions Recorded metFORMIN HCL [Glucophage] 500 mg PO BID-W/MEALS #60 tab 12/26/18 Allergies Allergy/AdvReac Type Severity Reaction Status Date / Time No Known Allergies Allergy Verified 12/02/19 12:05 Review of Systems ROS Statement: Those systems with pertinent positive or pertinent negative responses have been documented in the HPI. ROS Other: All systems not noted in ROS Statement are negative. Past Medical History Past Medical History: Diabetes Mellitus, Hypertension History of Any Multi-Drug Resistant Organisms: None Reported Past Surgical History: Bowel Resection Additional Past Surgical History / Comment(s): Sigmoid colostomy Past Anesthesia/Blood Transfusion Reactions: No Reported Reaction Past Psychological History: No Psychological Hx Reported Smoking Status: Former smoker Past Alcohol Use History: Occasional Past Drug Use History: None Reported - Past Family History Father History Unknown: Yes Mother Family Medical History: No Reported History General Exam Limitations: no limitations Course Vital Signs 12/02/19 12/02/19 12/02/19 11:49 12:40 13:10 Temperature 99.5 F Pulse Rate 71 72 66 Respiratory 18 19 22 Rate Blood Pressure 130/73 102/81 119/53 O2 Sat by Pulse 95 95 97 Oximetry Medical Decision Making - Lab Data Result diagrams: 12/02/19 12:35 12/02/19 12:35 Lab Results 12/02/19 12/02/19 12/02/19 Range/Units 12:35 12:35 12:35 WBC 5.7 (3.8-10.6) k/uL RBC 3.38 L (4.30-5.90) m/uL Hgb 10.8 L (13.0-17.5) gm/dL Hct 32.1 L (39.0-53.0) % MCV 94.8 (80.0-100.0) fL MCH 31.8 (25.0-35.0) pg MCHC 33.6 (31.0-37.0) g/dL RDW 13.8 (11.5-15.5) % Plt Count 143 L (150-450) k/uL Neutrophils % 76 % Lymphocytes % 12 % Monocytes % 9 % Eosinophils % 1 % Basophils % 0 % Neutrophils # 4.3 (1.3-7.7) k/uL Lymphocytes # 0.7 L (1.0-4.8) k/uL Monocytes # 0.5 (0-1.0) k/uL Eosinophils # 0.0 (0-0.7) k/uL Basophils # 0.0 (0-0.2) k/uL PT 11.2 (9.0-12.0) sec INR 1.1 (<1.2) APTT 33.6 H (22.0-30.0) sec D-Dimer 2.05 H (<0.60) mg/L FEU Sodium 134 L (137-145) mmol/L Potassium 3.9 (3.5-5.1) mmol/L Chloride 101 (98-107) mmol/L Carbon Dioxide 25 (22-30) mmol/L Anion Gap 8 mmol/L BUN 28 H (9-20) mg/dL Creatinine 1.18 (0.66-1.25) mg/dL Est GFR (CKD-EPI)AfAm 65 (>60 ml/min/1.73 sqM) Est GFR (CKD-EPI)NonAf 56 (>60 ml/min/1.73 sqM) Glucose 237 H (74-99) mg/dL Calcium 8.7 (8.4-10.2) mg/dL Magnesium 1.4 L (1.6-2.3) mg/dL Total Bilirubin 1.0 (0.2-1.3) mg/dL AST 18 (17-59) U/L ALT 14 (4-49) U/L Alkaline Phosphatase 69 (38-126) U/L Troponin I (0.000-0.034) ng/mL NT-Pro-B Natriuret Pep pg/mL Total Protein 6.7 (6.3-8.2) g/dL Albumin 3.6 (3.5-5.0) g/dL Lipase 44 (23-300) U/L 12/02/19 12/02/19 Range/Units 12:35 12:35 WBC (3.8-10.6) k/uL RBC (4.30-5.90) m/uL Hgb (13.0-17.5) gm/dL Hct (39.0-53.0) % MCV (80.0-100.0) fL MCH (25.0-35.0) pg MCHC (31.0-37.0) g/dL RDW (11.5-15.5) % Plt Count (150-450) k/uL Neutrophils % % Lymphocytes % % Monocytes % % Eosinophils % % Basophils % % Neutrophils # (1.3-7.7) k/uL Lymphocytes # (1.0-4.8) k/uL Monocytes # (0-1.0) k/uL Eosinophils # (0-0.7) k/uL Basophils # (0-0.2) k/uL PT (9.0-12.0) sec INR (<1.2) APTT (22.0-30.0) sec D-Dimer (<0.60) mg/L FEU Sodium (137-145) mmol/L Potassium (3.5-5.1) mmol/L Chloride (98-107) mmol/L Carbon Dioxide (22-30) mmol/L Anion Gap mmol/L BUN (9-20) mg/dL Creatinine (0.66-1.25) mg/dL Est GFR (CKD-EPI)AfAm (>60 ml/min/1.73 sqM) Est GFR (CKD-EPI)NonAf (>60 ml/min/1.73 sqM) Glucose (74-99) mg/dL Calcium (8.4-10.2) mg/dL Magnesium (1.6-2.3) mg/dL Total Bilirubin (0.2-1.3) mg/dL AST (17-59) U/L ALT (4-49) U/L Alkaline Phosphatase (38-126) U/L Troponin I 0.015 (0.000-0.034) ng/mL NT-Pro-B Natriuret Pep 1750 pg/mL Total Protein (6.3-8.2) g/dL Albumin (3.5-5.0) g/dL Lipase (23-300) U/L Disposition Clinical Impression: Chest pain Disposition: ADMITTED IP TO THIS HOSP Condition: Fair Referrals: Raffi Hanson MD [Primary Care Provider] - 1-2 days Decision Time: 14:50
[2019-12-02 12:45] LABS: Basophils % (A) 0 %; Eosinophils % (A) 1 %; HCT 32.1 % (39.0-53.0); HGB 10.8 gm/dL (13.0-17.5); Lymphocytes # (A) 0.7 k/uL (1.0-4.8); Lymphocytes % (A) 12 %; MCH 31.8 pg (25.0-35.0); MCHC 33.6 g/dL (31.0-37.0); MCV 94.8 fL (80.0-100.0); Mean Platelet Volume 9.2; Monocytes # (A) 0.5 k/uL (0-1.0); Monocytes % (A) 9 %; Neutrophils # (A) 4.3 k/uL (1.3-7.7); Neutrophils % (A) 76 %; Platelet Count 143 k/uL (150-450); RBC 3.38 m/uL (4.30-5.90); RDW 13.8 % (11.5-15.5); WBC 5.7 k/uL (3.8-10.6)
[2019-12-02 12:58] LABS: Albumin 3.6 g/dL (3.5-5.0); Calcium 8.7 mg/dL (8.4-10.2); Magnesium 1.4 mg/dL (1.6-2.3); Potassium 3.9 mmol/L (3.5-5.1); Total Protein 6.7 g/dL (6.3-8.2)
[2019-12-02 12:59] LABS: INR 1.1 (<1.2)
[2019-12-02 13:00] LABS: Partial Thromboplastin Time 33.6 sec (22.0-30.0); Prothrombin Time 11.2 sec (9.0-12.0)
--- NOTE | 2019-12-02 13:11 | XR ---
EXAMINATION TYPE: XR chest 2V DATE OF EXAM: 12/02/2019 COMPARISON: 12/23/18 HISTORY: Shortness of breath TECHNIQUE: Frontal and lateral views of the chest are obtained. FINDINGS: Scattered senescent parenchymal changes noted. Hyperinflation compatible with COPD. No evidence for infiltrate. No evidence for atelectasis. Heart size is stable. Mediastinal structures are stable and grossly unremarkable. No evidence for hilar prominence. Degenerative changes dorsal spine. IMPRESSION: 1. No evidence for acute pulmonary disease.
[2019-12-02 13:28] LABS: D-Dimer 2.05 mg/L FEU (<0.60)
--- NOTE | 2019-12-02 14:31 | CT ---
EXAMINATION TYPE: CT angio chest DATE OF EXAM: 12/02/2019 COMPARISON: Chest x-ray 12/02/2019 HISTORY: Chest pain with shortness of breath. CT DLP: 494 mGycm Automated exposure control for dose reduction was used. CONTRAST: CTA scan of the thorax is performed with IV Contrast, patient injected with 100 mL of Isovue 370, pul monary embolism protocol. MIP images are created and reviewed. 3D reconstructed images are created on an independent workstation and reviewed. FINDINGS: LUNGS: The lungs are grossly clear, there is no concerning parenchymal mass or nodule identified. T here is no pleural effusion or pneumothorax seen. The tracheobronchial tree is patent. AORTA: Extensive atheromatous changes. No evident aneurysm or dissection.. MEDIASTINUM: There is satisfactory enhancement of the pulmonary artery and its branches, there is no CT evidence for pulmonary embolism within the large central arteries and segmental branches, subsegme ntal branches limited for evaluation. There are no greater than 1 cm hilar or mediastinal lymph node s. No pericardial effusion is seen. There are coronary artery calcifications. OTHER: Dependent high attenuation within the gallbladder is consistent with stones. Mesenteric arter ial calcification is extensive. Probable cortical cyst present lower pole left kidney. The spleen is enlarged. IMPRESSION: NO EVIDENT PULMONARY EMBOLISM WITHIN THE LIMITATIONS OF THE EXAM. Splenomegaly, cholelithiasis and ad ditional findings above.
[2019-12-02] MEDS ORDERED: NITROGLYCERIN SL TABS 0.4 MG TAB SUBLINGUAL PRN (14:49)
--- NOTE | 2019-12-02 17:53 | P.HPIM ---
History of Present Illness H&P Date: 12/02/19 Aracelis Melchor, is an 84-year-old male who presented to [facility] emergency room with a chief complaint of chest pain, patient describes a pressure sensation in the middle of his chest radiating to the back for 2 days on and off prior to admission he was also having some shortness of breath with activity he denies any diaphoresis no nausea or vomiting no radiation of the pain to the neck or to the arms, patient was evaluated in the emergency room his EKG revealed normal sinus rhythm with first-degree AV block and right bundle branch block, troponin level was 0.015 d-dimer was elevated at 2.05 CT angiogram of the chest was done and did not reveal any evidence of pulmonary embolism. Patient was admitted to telemetry floor cardiology consultation was requested. His temperature on presentation was 99.5 pulse 71 respiration 18 blood pressure 130/73 pulse ox 95% on room air BNP was slightly elevated at 1750 liver enzymes amylase and lipase were normal. Patient has a known history of hypertension, hyperlipidemia, [id number] diabetes mellitus, he has history of bowel obstruction with bowel resection and colostomy placement. Patient has a previous history of smoking. Past Medical History Past Medical History: Coronary Artery Disease (CAD), Chest Pain / Angina, Diabetes Mellitus, Hyperlipidemia, Hypertension Additional Past Medical History / Comment(s): NIDDM type II, neuropathy bilateral hands, colon cancer with resection/colostomy, hematuria with acute blood loss anemia with transfusion (cystoscopy normal per pt), bronchitis, History of Any Multi-Drug Resistant Organisms: None Reported Past Surgical History: Bowel Resection, Heart Catheterization, Orthopedic Surgery Additional Past Surgical History / Comment(s): Sigmoid resection/colostomy, colonoscopy, 2008 cardiac cath treated medically, cystoscopy, R shoulder rotator cuff surgery, bilateral cataract removals/lens implants. Past Anesthesia/Blood Transfusion Reactions: No Reported Reaction Additional Past Anesthesia/Blood Transfusion Reaction / Comment(s): Pt has received blood in past without reaction. Smoking Status: Former smoker - Past Family History Father History Unknown: Yes Family Medical History: No Reported History Additional Family Medical History / Comment(s): Father was killed during WWII Mother Family Medical History: No Reported History Additional Family Medical History / Comment(s): Mother in [facility] during WWII Medications and Allergies Home Medications Medication Instructions Recorded Confirmed Type carvediloL [Coreg] 6.25 mg PO BID 12/22/18 12/02/19 History glipiZIDE [Glucotrol] 5 mg PO AC-TID 12/22/18 12/02/19 History hydrALAZINE HCL 50 mg PO AC-BID 12/22/18 12/02/19 History hydroCHLOROthiazide [Hydrodiuril] 25 mg PO DAILY 12/22/18 12/02/19 History metFORMIN HCL [Glucophage] 500 mg PO BID-W/MEALS #60 tab 12/26/18 12/02/19 Rx sitaGLIPtin [Januvia] 50 mg PO DAILY 12/02/19 12/02/19 History Allergies Allergy/AdvReac Type Severity Reaction Status Date / Time No Known Allergies Allergy Verified 12/02/19 12:05 Physical Exam Vitals: Vital Signs Temp Pulse Resp BP Pulse Ox 12/02/19 15:49 99 12/02/19 15:00 65 22 112/50 97 12/02/19 13:30 62 22 119/53 97 12/02/19 13:10 66 22 119/53 97 12/02/19 12:40 72 19 102/81 95 12/02/19 11:49 99.5 F 71 18 130/73 95 Intake and Output 12/02/19 12/02/19 12/02/19 06:59 14:59 22:59 Intake Total 0 Balance 0 Intake: Oral 0 Other: Weight 89.811 kg 89.811 kg In general patient is alert and oriented 3 in no apparent distress HEENT head normocephalic and atraumatic Neck is supple no JVD no goiter no lymphadenopathy no carotid bruit Chest exam reveals scattered crackles bilaterally no wheezing Cardiac exam reveals regular heart sounds S1 and S2 no gallops no murmurs Abdomen is soft nontender no organomegaly with normal bowel sounds Extremity exam reveals no edema no cyanosis or clubbing Neurological examination reveals no gross focal deficits Results CBC & Chem 7: 12/02/19 12:35 12/02/19 12:35 Labs: Abnormal Lab Results - Last 24 Hours (Table) 12/02/19 12/02/19 12/02/19 Range/Units 12:35 12:35 12:35 RBC 3.38 L (4.30-5.90) m/uL Hgb 10.8 L (13.0-17.5) gm/dL Hct 32.1 L (39.0-53.0) % Plt Count 143 L (150-450) k/uL Lymphocytes # 0.7 L (1.0-4.8) k/uL APTT 33.6 H (22.0-30.0) sec D-Dimer 2.05 H (<0.60) mg/L FEU Sodium 134 L (137-145) mmol/L BUN 28 H (9-20) mg/dL Glucose 237 H (74-99) mg/dL Magnesium 1.4 L (1.6-2.3) mg/dL Thrombosis Risk Factor Assmnt - Choose All That Apply Any of the Below Risk Factors Present?: Yes Each Factor Represents 1 point: Obesity (BMI >25) Other Risk Factors: Yes Each Risk Factor Represents 2 Points: Malignancy Each Risk Factor Represents 3 Points: Age 75 years or older Other congenital or acquired thrombophilia - If yes, enter type in comment: No Thrombosis Risk Factor Assessment Total Risk Factor Score: 6 Thrombosis Risk Factor Assessment Level: High Risk Assessment and Plan Plan: 1. Episodes of chest pain on and off for the last 2 days 2. Elevated d-dimer, CTA of the chest was negative for pulmonary embolism 3. Underlying history of hypertension 4. Underlying history of hyperlipidemia 5. Underlying history of [id number] diabetes mellitus 6. Low-grade fever on presentation, 99.5 and shortness of breath will check Covid 19 testing At this time patient is admitted to telemetry floor Check serial EKGs and cardiac enzymes to rule out acute coronary syndrome Consult cardiology Check lipid profile Check bilateral lower extremity Doppler rule out DVT Start Lovenox 40 mg subcu every day Will follow closely
[2019-12-02] MEDS: carvediloL 6.25 MG TAB PO SCH (18:00)
[2019-12-02] MEDS: hydrALAZINE HCL 50 MG TAB PO SCH (18:00)
[2019-12-02] MEDS: ENOXAPARIN 40 MG/0.4 ML SYRINGE SQ SCH (18:00)
[2019-12-02 18:15] LABS: Glucose,Whole Blood 139 mg/dL (75-99)
--- NOTE | 2019-12-02 18:23 | US ---
EXAMINATION TYPE: US venous doppler duplex LE DATE OF EXAM: 12/02/2019 5:55 PM COMPARISON: NONE CLINICAL HISTORY: elevated D Dimer. Elevated D Dimer. No hx of DVT. SIDE PERFORMED: Bilateral TECHNIQUE: The lower extremity deep venous system is examined utilizing real time linear array sonog james with graded compression, doppler sonography and color-flow sonography. VESSELS IMAGED: External Iliac Vein (EIV) Common Femoral Vein Deep Femoral Vein Greater Saphenous Vein * Femoral Vein Popliteal Vein Small Saphenous Vein * Proximal Calf Veins (* superficial vessels) Right Leg: No evidence of DVT in veins imaged at this time from prox calf veins to EIV. Left Leg: No evidence of DVT in veins imaged at this time from prox calf veins to EIV. IMPRESSION: No evidence of deep vein thrombosis in both legs.
[2019-12-02] MEDS: glipiZIDE 5 MG TAB PO SCH (18:38)
[2019-12-02 21:12] LABS: Glucose,Whole Blood 232 mg/dL (75-99)
[2019-12-02] MEDS: INSULIN ASPART (NovoLOG) 100 UNIT/ML VIAL SQ SCH (22:18)
[2019-12-03] MEDS ORDERED: Magnesium Replacement Protocol 1 EACH MISC MISCELLANE PRN (00:10)
[2019-12-03] MEDS: MAGNESIUM SULFATE-D5W PMX 1 GM in DEXTROSE/WATER 1 100ML.BAG IVPB SCH ×3 (00:40→03:22)
[2019-12-03 06:30] LABS: Glucose,Whole Blood 169 mg/dL (75-99)
[2019-12-03 06:41] LABS: Basophils % (A) 0 %; Eosinophils % (A) 1 %; HCT 31.6 % (39.0-53.0); HGB 10.4 gm/dL (13.0-17.5); Lymphocytes # (A) 0.6 k/uL (1.0-4.8); Lymphocytes % (A) 17 %; MCH 31.5 pg (25.0-35.0); MCHC 32.8 g/dL (31.0-37.0); Mean Platelet Volume 8.8; Monocytes # (A) 0.3 k/uL (0-1.0); Monocytes % (A) 10 %; Neutrophils # (A) 2.4 k/uL (1.3-7.7); Neutrophils % (A) 69 %; Platelet Count 126 k/uL (150-450); RBC 3.29 m/uL (4.30-5.90); RDW 13.6 % (11.5-15.5); WBC 3.4 k/uL (3.8-10.6)
[2019-12-03] MEDS: hydrALAZINE HCL 50 MG TAB PO SCH ×2 (06:52→16:38)
[2019-12-03 07:12] LABS: Albumin 3.5 g/dL (3.5-5.0); Calcium 8.6 mg/dL (8.4-10.2); Magnesium 2.2 mg/dL (1.6-2.3); Potassium 3.6 mmol/L (3.5-5.1); Total Bilirubin 0.8 mg/dL (0.2-1.3); Total Protein 6.6 g/dL (6.3-8.2)
[2019-12-03] MEDS ORDERED: ACETAMINOPHEN TAB 325 MG TAB PO PRN (08:21)
[2019-12-03] MEDS: ENOXAPARIN 40 MG/0.4 ML SYRINGE SQ SCH (08:40)
[2019-12-03] MEDS: ASPIRIN 325 MG TAB PO SCH (08:41)
[2019-12-03] MEDS: glipiZIDE 5 MG TAB PO SCH ×3 (08:41→16:38)
[2019-12-03] MEDS: carvediloL 6.25 MG TAB PO SCH ×2 (08:41→16:38)
[2019-12-03] MEDS: hydroCHLOROthiazide 25 MG TAB PO SCH (08:41)
[2019-12-03] MEDS: LINAGLIPTIN 5 MG TABLET PO SCH (08:42)
[2019-12-03] MEDS: INSULIN ASPART (NovoLOG) 100 UNIT/ML VIAL SQ SCH ×4 (08:42→21:37)
--- NOTE | 2019-12-03 09:11 | P.CRDCN ---
History of Present Illness Consult date: 12/03/19 Reason for Consult (text): Chest pain History of present illness: HISTORY OF PRESENTING ILLNESS This is a pleasant 84-year-old male with history of nonobstructive coronary artery disease on heart catheterization from 2007, hypertension, hyperlipidemia, prior tobacco abuse who presented to the hospital secondary to chest pain over the last few days. Patient admits to multiple orthopedic complaints including left arm pain worse when he is moving his shoulder back pain as well as chest pain. He denies any specific reproducibility for his chest pain such as with palpation or positioning. He admits that his been off and on over the last 3 days. He does admit to feeling like he can't catch his breath sometimes illness occurs. He denies any palpitations, lightheadedness, associated nausea or diaphoresis. He denies prior similar episodes. He does follow with Dr. Brooks in the office and was recently seen on 10/27/2019. He has had recent workup including a nuclear stress test from July 2019 which showed a fixed inferior wall defect likely consistent with soft tissue attenuation which had been seen on prior scans as well. Additionally he had a echocardiogram performed in September 2019 which showed ejection fraction 55%, indeterminate diastolic function, mild mitral regurgitation and no significant aortic stenosis or regurgitation. DIAGNOSTICS EKG reveals sinus rhythm with PACs, left axis deviation, right bundle branch block, nonspecific ST-T wave abnormalities. CT angiogram showed gallstones, atherosclerotic changes of the aorta and no significant PE although somewhat limited study. Laboratory reviewed, white blood cell count 3.4, hemoglobin 10.4, platelets 126, sodium 134, creatinine 1.08, troponin negative 3. BNP 1750 Current cardiac medications include aspirin 325 mg daily, Coreg 6.25 mg twice a day, Lovenox 40 mg daily, hydralazine 50 mg twice a day, hydrochlorothiazide 25 mg daily. REVIEW OF SYSTEMS At the time of my exam: CONSTITUTIONAL: Denies fever or chills. However did have a fever this morning of 101.0 CARDIOVASCULAR: + chest pain, +shortness of breath, no orthopnea, PND or palpitations. RESPIRATORY: Denies cough. GASTROINTESTINAL: Denies abdominal pain, diarrhea, constipation, nausea or vomit ing. MUSCULOSKELETAL: Denies myalgias. NEUROLOGIC: Denies numbness, tingling or weakness. ENDOCRINE: Denies fatigue, weight change, polydipsia or polyurina. GENITOURINARY: Denies burning, hematuria or urgency with micturation. HEMATOLOGIC: Denies history of anemia or bleeding. PHYSICAL EXAMINATION Blood pressure 148/57 heart rate 70, fever of 101.0 this morning and maintaining oxygen saturation on room air. CONSTITUTIONAL: No apparent distress, mildly frail-appearing HEENT: Head is normocephalic. Pupils are equal, round. Sclerae anicteric. Mucous membranes of the mouth are moist. No JVD. No carotid bruit. CHEST EXAMINATION: Lungs are clear to auscultation. No chest wall tenderness is noted on palpation or with deep breathing. HEART EXAMINATION: Regular rate and rhythm. S1, S2 heard. No murmurs, gallops or rub. ABDOMEN: Soft, nontender. Positive bowel sounds. EXTREMITIES: 2+ peripheral pulses, no lower extremity edema and no calf tenderness. NEUROLOGIC EXAMINATION: Patient is awake, alert and oriented x3. ASSESSMENT 1. Atypical chest pain with troponin negative 3, acute event has been ruled out, CTA showing no dissection, no PE 2. Fever and leukopenia concerning for possible infection, CTA did not mention any pneumonia 3. History of nonobstructive coronary artery disease by heart catheterization from 2007 4. Diabetes mellitus 5. Essential hypertension 6. Shortness breath. Patient does have elevated BNP at 1750 with prior echo showing indeterminate diastolic function. Does not appear in acute heart failure at this time and appears euvolemic. PLAN Patient has had recent workup occluding a nuclear stress test from July 2019 which showed fixed inferior wall defect without any reversible ischemia similar to prior exams. Patient additionally had an echocardiogram from September 2019 with normal ejection fraction and no significant valvular abnormalities. Overall patient's chest pain and shortness breath do not appear cardiogenic in nature and patient appears stable for discharge from a cardiac standpoint with outpatient follow-up with Dr. Brooks. Urinalysis is pending and we will defer further workup of fever and leukopenia to primary medicine team. Past Medical History Past Medical History: Coronary Artery Disease (CAD), Chest Pain / Angina, Diabetes Mellitus, Hyperlipidemia, Hypertension Additional Past Medical History / Comment(s): NIDDM type II, neuropathy bilateral hands, colon cancer with resection/colostomy, hematuria with acute blood loss anemia with transfusion (cystoscopy normal per pt), bronchitis, History of Any Multi-Drug Resistant Organisms: None Reported Past Surgical History: Bowel Resection, Heart Catheterization, Orthopedic Surgery Additional Past Surgical History / Comment(s): Sigmoid resection/colostomy, colonoscopy, 2007 cardiac cath treated medically, cystoscopy, R shoulder rotator cuff surgery, bilateral cataract removals/lens implants. Past Anesthesia/Blood Transfusion Reactions: No Reported Reaction Additional Past Anesthesia/Blood Transfusion Reaction / Comment(s): Pt has received blood in past without reaction. Smoking Status: Former smoker - Past Family History Father History Unknown: Yes Family Medical History: No Reported History Additional Family Medical History / Comment(s): Father was killed during WWII Mother Family Medical History: No Reported History Additional Family Medical History / Comment(s): Mother in [facility] during II Medications and Allergies Home Medications Medication Instructions Recorded Confirmed Type carvediloL [Coreg] 6.25 mg PO BID 12/22/18 12/02/19 History glipiZIDE [Glucotrol] 5 mg PO AC-TID 12/22/18 12/02/19 History hydrALAZINE HCL 50 mg PO AC-BID 12/22/18 12/02/19 History hydroCHLOROthiazide [Hydrodiuril] 25 mg PO DAILY 12/22/18 12/02/19 History metFORMIN HCL [Glucophage] 500 mg PO BID-W/MEALS #60 tab 12/26/18 12/02/19 Rx sitaGLIPtin [Januvia] 50 mg PO DAILY 12/02/19 12/02/19 History Allergies Allergy/AdvReac Type Severity Reaction Status Date / Time No Known Allergies Allergy Verified 12/02/19 12:05 Physical Exam Vitals: Vital Signs Temp Pulse Pulse Resp BP BP Pulse Ox 12/03/19 07:32 101.0 F H 70 20 148/57 93 L 12/03/19 03:00 99.3 F 85 18 127/63 96 12/02/19 21:00 99.8 F H 89 20 148/69 96 12/02/19 15:49 99 12/02/19 15:00 65 22 112/50 97 12/02/19 13:30 62 22 119/53 97 12/02/19 13:10 66 22 119/53 97 12/02/19 12:40 72 19 102/81 95 12/02/19 11:49 99.5 F 71 18 130/73 95 Intake and Output 12/02/19 12/03/19 12/03/19 22:59 06:59 14:59 Intake Total 0 Balance 0 Intake: Oral 0 Other: Voiding Method Toilet Toilet Toilet # Voids 1 Weight 89.811 kg Results 12/03/19 05:28 12/03/19 05:28 Cardiac Enzymes 12/02/19 12/02/19 12/02/19 Range/Units 12:35 12:35 15:49 AST 18 (17-59) U/L Troponin I 0.015 0.014 (0.000-0.034) ng/mL 12/02/19 12/03/19 Range/Units 18:12 05:28 AST 20 (17-59) U/L Troponin I 0.014 (0.000-0.034) ng/mL Coagulation 12/02/19 Range/Units 12:35 PT 11.2 (9.0-12.0) sec APTT 33.6 H (22.0-30.0) sec Lipids 12/03/19 Range/Units 05:28 Triglycerides 178 H (<150) mg/dL Cholesterol 151 (<200) mg/dL HDL Cholesterol 31 L (40-60) mg/dL CBC 12/02/19 12/03/19 Range/Units 12:35 05:28 WBC 5.7 3.4 L (3.8-10.6) k/uL RBC 3.38 L 3.29 L (4.30-5.90) m/uL Hgb 10.8 L 10.4 L (13.0-17.5) gm/dL Hct 32.1 L 31.6 L (39.0-53.0) % Plt Count 143 L 126 L (150-450) k/uL Comprehensive Metabolic Panel 12/02/19 12/03/19 Range/Units 12:35 05:28 Sodium 134 L 134 L (137-145) mmol/L Potassium 3.9 3.6 (3.5-5.1) mmol/L Chloride 101 100 (98-107) mmol/L Carbon Dioxide 25 25 (22-30) mmol/L BUN 28 H 27 H (9-20) mg/dL Creatinine 1.18 1.08 (0.66-1.25) mg/dL Glucose 237 H 131 H (74-99) mg/dL Calcium 8.7 8.6 (8.4-10.2) mg/dL AST 18 20 (17-59) U/L ALT 14 14 (4-49) U/L Alkaline Phosphatase 69 71 (38-126) U/L Total Protein 6.7 6.6 (6.3-8.2) g/dL Albumin 3.6 3.5 (3.5-5.0) g/dL Current Medications Generic Name Dose Route Start Last Admin Trade Name Freq PRN Reason Stop Dose Admin Acetaminophen 650 mg 12/03/19 08:21 12/03/19 08:41 Tylenol Tab PO 650 mg Q6HR PRN Administration Fever and/ or Pain Aspirin 325 mg 12/03/19 09:00 12/03/19 08:41 Aspirin PO 325 mg DAILY MARTIN Administration Carvedilol 6.25 mg 12/02/19 17:30 12/03/19 08:41 Coreg PO 6.25 mg AC-BID MARTIN Administration Enoxaparin Sodium 40 mg 12/02/19 17:15 12/03/19 08:40 Lovenox SQ 40 mg DAILY MARTIN Administration Glipizide 5 mg 12/02/19 17:30 12/03/19 08:41 Glucotrol PO 5 mg AC-TID MARTIN Administration Hydralazine HCl 50 mg 12/02/19 17:30 12/03/19 06:52 Apresoline PO 50 mg AC-BID MARTIN Administration Hydrochlorothiazide 25 mg 12/03/19 09:00 12/03/19 08:41 Hydrodiuril PO 25 mg DAILY MARTIN Administration Insulin Aspart 0 unit 12/02/19 22:10 12/03/19 08:42 Novolog SQ Not Given [facility] Protocol Linagliptin 5 mg 12/03/19 09:00 12/03/19 08:42 Tradjenta PO 5 mg DAILY MARTIN Administration Miscellaneous Information 1 each 12/03/19 00:10 Magnesium Per Protocol MISCELLANE DAILY PRN Per Protocol Protocol Nitroglycerin 0.4 mg 12/02/19 14:49 Nitrostat SUBLINGUAL Q5M PRN Chest Pain Intake and Output 12/02/19 12/03/19 12/03/19 22:59 06:59 14:59 Intake Total 0 Balance 0 Intake: Oral 0 Other: Voiding Method Toilet Toilet Toilet # Voids 1 Weight 89.811 kg 12/03/19 05:28 09/03/20 05:28
[2019-12-03 11:21] LABS: Glucose,Whole Blood 238 mg/dL (75-99)
[2019-12-03 12:18] LABS: Amorphous Sediment,Urine Rare /hpf; Appearance,Urine Cloudy (Clear); Bacteria,Urine Many /hpf; Bilirubin,Urine Negative (Negative); Blood,Urine Trace (Negative); Color,Urine Yellow; Glucose,Urine (UA) Negative (Negative); Ketones,Urine Negative (Negative); Leukocyte Esterase,Urine Moderate (Negative); Mucus,Urine Rare /hpf; Nitrite,Urine Positive (Negative); Protein,Urine 1+ (Negative); RBC,Urine 3 /hpf (0-5); Specific Gravity,Urine 1.023 (1.001-1.035); Squamous Epithelial Cell,Urine <1 /hpf (0-4); Urobilinogen,Urine <2.0 mg/dL (<2.0); WBC,Urine 8 /hpf (0-5)
--- NOTE | 2019-12-03 12:49 | P.CNPUL ---
History of Present Illness Consult date: 12/03/19 Requesting physician: Raffi Hanson Reason for consult: dyspnea, chest pain Chief complaint: Midsternal chest pain, shortness of breath History of present illness: This a very pleasant 84-year-old gentleman who follows with Dr. Mars as his primary care provider. He has a history of diabetes mellitus, hypertension, previous smoking history of 1 pack per day for approximate 45 years however quit in 1997. He presented to the emergency room yesterday with complaints of midsternal chest discomfort radiating to his right arm and shortness of breath. Chest x-ray revealed no acute pulmonary process. CT angiogram ruled out pulmonary embolism. There is evidence of splenomegaly, cholelithiasis. EKG reveals a right bundle branch block pattern, sinus mechanism. Troponins negative 3. Venous Doppler of the lower extremities revealed no evidence of DVT. White count 3.4. Hemoglobin 10.4. Platelet count 126. Sodium 134. Potassium 3.6. Creatinine 1.08. Urine with trace blood, moderate leukocytes, high white blood cells, many bacteria. He is seen today in consultation on the regular medical floor. He is awake and alert in no acute distress. Resting quite comfortably in bed. He is maintaining O2 saturations in the 90s on room air. He does have a temperature of 101 today. Urine culture pending. CoVID 19 by PCR pending. Review of Systems REVIEW OF SYSTEMS: CONSTITUTIONAL: Denies any recent significant weight loss or weight gain. EYES: Denies change in vision. EARS, NOSE, MOUTH, THROAT: Denies headaches, denies sore throat. CARDIOVASCULAR: Positive for chest pain, no palpitations or syncopal episodes. RESPIRATORY: Positive for shortness of breath, no cough, congestion or hemoptysis. GASTROINTESTINAL: Denies change in appetite, denies abdominal pain GENITOURINARY: Denies hematuria, denies infections. MUSKULOSKELETAL: Denies pain, denies swelling. INTEGUMENTARY: Denies rash, denies eczema. NEUROLOGICAL: Denies recent memory loss, no recent seizure activity. PSYCHIATRIC: Denies anxiety, denies depression. HEMATOLOGIC/LYMPHATIC: Denies anemia, denies enlarged lymph nodes. Past Medical History Past Medical History: Coronary Artery Disease (CAD), Chest Pain / Angina, Diabetes Mellitus, Hyperlipidemia, Hypertension Additional Past Medical History / Comment(s): NIDDM type II, neuropathy bilateral hands, colon cancer with resection/colostomy, hematuria with acute blo od loss anemia with transfusion (cystoscopy normal per pt), bronchitis, History of Any Multi-Drug Resistant Organisms: None Reported Past Surgical History: Bowel Resection, Heart Catheterization, Orthopedic Surgery Additional Past Surgical History / Comment(s): Sigmoid resection/colostomy, colonoscopy, 2007 cardiac cath treated medically, cystoscopy, R shoulder rotator cuff surgery, bilateral cataract removals/lens implants. Past Anesthesia/Blood Transfusion Reactions: No Reported Reaction Additional Past Anesthesia/Blood Transfusion Reaction / Comment(s): Pt has recei jose blood in past without reaction. Smoking Status: Former smoker - Past Family History Father History Unknown: Yes Family Medical History: No Reported History Additional Family Medical History / Comment(s): Father was killed during WW Mother Family Medical History: No Reported History Additional Family Medical History / Comment(s): Mother in [facility] during Medications and Allergies Home Medications Medication Instructions Recorded Confirmed Type carvediloL [Coreg] 6.25 mg PO BID 12/22/18 12/02/19 History glipiZIDE [Glucotrol] 5 mg PO AC-TID 12/22/18 12/02/19 History hydrALAZINE HCL 50 mg PO AC-BID 12/22/18 12/02/19 History hydroCHLOROthiazide [Hydrodiuril] 25 mg PO DAILY 12/22/18 12/02/19 History metFORMIN HCL [Glucophage] 500 mg PO BID-W/MEALS #60 tab 12/26/18 12/02/19 Rx sitaGLIPtin [Januvia] 50 mg PO DAILY 12/02/19 12/02/19 History Allergies Allergy/AdvReac Type Severity Reaction Status Date / Time No Known Allergies Allergy Verified 12/02/19 12:05 Physical Exam Vitals: Vital Signs Temp Pulse Pulse Resp BP BP Pulse Ox 12/03/19 07:32 101.0 F H 70 20 148/57 93 L 12/03/19 03:00 99.3 F 85 18 127/63 96 12/02/19 21:00 99.8 F H 89 20 148/69 96 12/02/19 15:49 99 12/02/19 15:00 65 22 112/50 97 12/02/19 13:30 62 22 119/53 97 12/02/19 13:10 66 22 119/53 97 12/02/19 12:40 72 19 102/81 95 Intake and Output 12/02/19 12/03/19 12/03/19 22:59 06:59 14:59 Intake Total 0 Balance 0 Intake: Oral 0 Other: Voiding Method Toilet Toilet Toilet # Voids 1 Weight 89.811 kg GENERAL EXAM: Alert, active, pleasant 84-year-old gentleman, on room air, comfortable in no apparent distress. HEAD: Normocephalic. EYES: Normal reaction of pupils, equal size. NOSE: Clear with pink turbinates. THROAT: No erythema or exudates. NECK: No masses, no JVD. CHEST: No chest wall deformity. LUNGS: Equal air entry with no crackles, wheeze, rhonchi or dullness. CVS: S1 and S2 normal with no audible murmur, regular rhythm. ABDOMEN: No hepatosplenomegaly, normal bowel sounds, no guarding or rigidity. SPINE: No scoliosis or deformity SKIN: No rashes CENTRAL NERVOUS SYSTEM: No focal deficits, tone is normal in all 4 extremities. EXTREMITIES: There is no peripheral edema. No clubbing, no cyanosis. Periphera l pulses are intact. Results - Laboratory Findings CBC and BMP: 12/03/19 05:28 12/03/19 05:28 PT/INR, D-dimer PT 11.2 sec (9.0-12.0) 12/02/19 12:35 INR 1.1 (<1.2) 12/02/19 12:35 D-Dimer 2.05 mg/L FEU (<0.60) H 12/02/19 12:35 Abnormal lab findings: Abnormal Labs 12/02/19 12/02/19 12/02/19 12:35 12:35 12:35 WBC RBC 3.38 L Hgb 10.8 L Hct 32.1 L Plt Count 143 L Lymphocytes # 0.7 L APTT 33.6 H D-Dimer 2.05 H Sodium 134 L BUN 28 H Glucose 237 H POC Glucose (mg/dL) Magnesium 1.4 L Triglycerides HDL Cholesterol Urine Protein Urine Blood Ur Leukocyte Esterase Urine WBC Amorphous Sediment Urine Bacteria Urine Mucus 12/02/19 12/02/19 12/03/19 18:14 21:09 05:28 WBC RBC Hgb Hct Plt Count Lymphocytes # APTT D-Dimer Sodium 134 L BUN 27 H Glucose 131 H POC Glucose (mg/dL) 139 H 232 H Magnesium Triglycerides 178 H HDL Cholesterol 31 L Urine Protein Urine Blood Ur Leukocyte Esterase Urine WBC Amorphous Sediment Urine Bacteria Urine Mucus 12/03/19 12/03/19 12/03/19 05:28 06:28 11:10 WBC 3.4 L RBC 3.29 L Hgb 10.4 L Hct 31.6 L Plt Count 126 L Lymphocytes # 0.6 L APTT D-Dimer Sodium BUN Glucose POC Glucose (mg/dL) 169 H Magnesium Triglycerides HDL Cholesterol Urine Protein 1+ H Urine Blood Trace H Ur Leukocyte Esterase Moderate H Urine WBC 8 H Amorphous Sediment Rare H Urine Bacteria Many H Urine Mucus Rare H 12/03/19 11:20 WBC RBC Hgb Hct Plt Count Lymphocytes # APTT D-Dimer Sodium BUN Glucose POC Glucose (mg/dL) 238 H Magnesium Triglycerides HDL Cholesterol Urine Protein Urine Blood Ur Leukocyte Esterase Urine WBC Amorphous Sediment Urine Bacteria Urine Mucus - Diagnostic Findings Chest x-ray: image reviewed CT scan - chest: image reviewed Assessment and Plan Assessment: 1 Atypical chest pain, acute coronary syndrome ruled out 2 Febrile illness suspect secondary to urinary tract infection, CoVID 19 testing pending 3 Elevated d-dimer, CT angiogram negative for pulmonary embolism, Dopplers n egative for DVT 4 History of 45 year pack per day smoking history however quit in 1997 5 Diabetes mellitus 6 Hypertension Plan: The patient was seen and evaluated by Dr. Mars Chest x-ray, CAT scan, labs reviewed Atypical chest pain and no acute pulmonary process Suspect urinary tract infection Straight cath if necessary for syncopal Antibiotics if warranted I, the cosigning physician, performed a history & physical examination of the patient. Lungs sounds are clear. Maintaining good O2 saturations in the 90s on room air. I discussed the assessment and plan of care with my nurse practitioner, Denita Lee. I attest to the above consultation as dictated by her. Time with Patient: Greater than 30
[2019-12-03 16:29] LABS: Glucose,Whole Blood 168 mg/dL (75-99)
--- NOTE | 2019-12-03 16:57 | P.PN ---
Subjective Progress Note Date: 12/03/19 Aracelis Melchor, is an 84-year-old male who presented to [facility] emergency room with a chief complaint of chest pain, patient describes a pressure sensation in the middle of his chest radiating to the back for 2 days on and off prior to admission he was also having some shortness of breath with activity he denies any diaphoresis no nausea or vomiting no radiation of the pain to the neck or to the arms, patient was evaluated in the emergency room his EKG revealed normal sinus rhythm with first-degree AV block and right bundle branch block, troponin level was 0.015 d-dimer was elevated at 2.05 CT angiogram of the chest was done and did not reveal any evidence of pulmonary embolism. Patient was admitted to telemetry floor cardiology consultation was requested. His temperature on presentation was 99.5 pulse 71 respiration 18 blood pressure 130/73 pulse ox 95% on room air BNP was slightly elevated at 1750 liver enzymes amylase and lipase were normal. Patient has a known history of hypertension, hyperlipidemia, gbs-gxomoyg-lxoxnzqek diabetes mellitus, he has history of bowel obstruction with bowel resection and colostomy placement. Patient has a previous history of smoking. On 12/03/2019 patient was seen and examined on the medical floor he is alert and oriented 3 in no distress there is significant fever today no chills no headache or dizziness no chest pain, he is still having some shortness of breath and cough there is no nausea or vomiting no abdominal pain no diarrhea no burning with urination no frequency or urgency and no hematuria he is having difficulty initiating urination, urine analysis was done and was positive for urinary tract infection, patient was started on IV Rocephin, Covid 19 testing is still pending Objective - Vital Signs Vital signs: Vital Signs Temp 97.5 F L 12/03/19 15:00 Pulse 72 12/03/19 15:00 Resp 18 12/03/19 15:00 BP 133/60 12/03/19 15:00 Pulse Ox 94 L 12/03/19 15:00 Intake & Output 12/02/19 12/03/19 12/03/19 18:59 06:59 18:59 Intake Total 0 960 Balance 0 960 Weight 89.811 kg Intake: Oral 0 960 Other: Voiding Method Toilet Toilet # Voids 1 3 - Exam In general patient is alert and oriented 3 in no apparent distress HEENT head normocephalic and atraumatic Neck is supple no JVD no goiter no lymphadenopathy no carotid bruit Chest exam reveals scattered crackles bilaterally no wheezing Cardiac exam reveals regular heart sounds S1 and S2 no gallops no murmurs Abdomen is soft nontender no organomegaly with normal bowel sounds Extremity exam reveals no edema no cyanosis or clubbing Neurological examination reveals no gross focal deficits - Labs CBC & Chem 7: 12/03/19 05:28 12/03/19 05:28 Labs: Abnormal Lab Results - Last 24 Hours (Table) 12/02/19 12/02/19 12/03/19 Range/Units 18:14 21:09 05:28 WBC (3.8-10.6) k/uL RBC (4.30-5.90) m/uL Hgb (13.0-17.5) gm/dL Hct (39.0-53.0) % Plt Count (150-450) k/uL Lymphocytes # (1.0-4.8) k/uL Sodium 134 L (137-145) mmol/L BUN 27 H (9-20) mg/dL Glucose 131 H (74-99) mg/dL POC Glucose (mg/dL) 139 H 232 H (75-99) mg/dL Triglycerides 178 H (<150) mg/dL HDL Cholesterol 31 L (40-60) mg/dL Urine Protein (Negative) Urine Blood (Negative) Ur Leukocyte Esterase (Negative) Urine WBC (0-5) /hpf Amorphous Sediment (None) /hpf Urine Bacteria (None) /hpf Urine Mucus (None) /hpf 12/03/19 12/03/19 12/03/19 Range/Units 05:28 06:28 11:10 WBC 3.4 L (3.8-10.6) k/uL RBC 3.29 L (4.30-5.90) m/uL Hgb 10.4 L (13.0-17.5) gm/dL Hct 31.6 L (39.0-53.0) % Plt Count 126 L (150-450) k/uL Lymphocytes # 0.6 L (1.0-4.8) k/uL Sodium (137-145) mmol/L BUN (9-20) mg/dL Glucose (74-99) mg/dL POC Glucose (mg/dL) 169 H (75-99) mg/dL Triglycerides (<150) mg/dL HDL Cholesterol (40-60) mg/dL Urine Protein 1+ H (Negative) Urine Blood Trace H (Negative) Ur Leukocyte Esterase Moderate H (Negative) Urine WBC 8 H (0-5) /hpf Amorphous Sediment Rare H (None) /hpf Urine Bacteria Many H (None) /hpf Urine Mucus Rare H (None) /hpf 12/03/19 Range/Units 11:20 WBC (3.8-10.6) k/uL RBC (4.30-5.90) m/uL Hgb (13.0-17.5) gm/dL Hct (39.0-53.0) % Plt Count (150-450) k/uL Lymphocytes # (1.0-4.8) k/uL Sodium (137-145) mmol/L BUN (9-20) mg/dL Glucose (74-99) mg/dL POC Glucose (mg/dL) 238 H (75-99) mg/dL Triglycerides (<150) mg/dL HDL Cholesterol (40-60) mg/dL Urine Protein (Negative) Urine Blood (Negative) Ur Leukocyte Esterase (Negative) Urine WBC (0-5) /hpf Amorphous Sediment (None) /hpf Urine Bacteria (None) /hpf Urine Mucus (None) /hpf Assessment and Plan Plan: 1. Episodes of chest pain on and off for the last 2 days 2. Elevated d-dimer, CTA of the chest was negative for pulmonary embolism 3. Underlying history of hypertension 4. Underlying history of hyperlipidemia 5. Underlying history of [id number]-tcglcyvid diabetes mellitus 6. Low-grade fever on presentation, 99.5 and shortness of breath will check Covid 19 testing, results are still pending, today temperature is up to 101 patient has evidence of urinary tract infection he was started on IV Rocephin he is also having difficulty urinating he is well known to Dr. enamorado, consultation was requested At this time patient is admitted to telemetry floor Check serial EKGs and cardiac enzymes to rule out acute coronary syndrome Consult cardiology Check lipid profile Check bilateral lower extremity Doppler rule out DVT Start Lovenox 40 mg subcu every day Will follow closely
[2019-12-03 21:36] LABS: Glucose,Whole Blood 140 mg/dL (75-99)
[2019-12-03] MEDS ORDERED: INSULIN ASPART (NovoLOG) 100 UNIT/ML VIAL SQ SCH (21:57)
[2019-12-04] MEDS: INSULIN ASPART (NovoLOG) 100 UNIT/ML VIAL SQ SCH ×4 (06:37→21:09)
[2019-12-04 06:38] LABS: Glucose,Whole Blood 128 mg/dL (75-99)
[2019-12-04 06:40] LABS: HCT 32.5 % (39.0-53.0); HGB 10.8 gm/dL (13.0-17.5); MCH 31.7 pg (25.0-35.0); MCHC 33.3 g/dL (31.0-37.0); MCV 95.1 fL (80.0-100.0); Platelet Count 150 k/uL (150-450); RBC 3.42 m/uL (4.30-5.90); RDW 13.6 % (11.5-15.5); WBC 2.8 k/uL (3.8-10.6)
[2019-12-04] MEDS: hydrALAZINE HCL 50 MG TAB PO SCH ×2 (06:45→17:52)
[2019-12-04] MEDS: carvediloL 6.25 MG TAB PO SCH ×2 (06:45→17:52)
[2019-12-04 07:01] LABS: Albumin 3.6 g/dL (3.5-5.0); Calcium 8.7 mg/dL (8.4-10.2); Potassium 3.3 mmol/L (3.5-5.1); Total Bilirubin 0.7 mg/dL (0.2-1.3); Total Protein 6.8 g/dL (6.3-8.2)
[2019-12-04 07:57] LABS: Lymphocytes # (M) 0.78 k/uL (1.0-4.8); Monocytes # (M) 0.42 k/uL (0-1.0); Neutrophils % (M) 57 %; Nucleated Red Blood Cells 0 /100 WBC (0-0); Total Cells Counted 100
[2019-12-04] MEDS: LINAGLIPTIN 5 MG TABLET PO SCH (08:34)
[2019-12-04] MEDS: ASPIRIN 325 MG TAB PO SCH (08:34)
[2019-12-04] MEDS: hydroCHLOROthiazide 25 MG TAB PO SCH (08:34)
[2019-12-04] MEDS: glipiZIDE 5 MG TAB PO SCH ×3 (08:34→17:52)
[2019-12-04] MEDS: ENOXAPARIN 40 MG/0.4 ML SYRINGE SQ SCH (08:35)
--- NOTE | 2019-12-04 09:04 | US ---
EXAMINATION TYPE: US abdomen limited DATE OF EXAM: 12/04/2019 COMPARISON: CTA chest 12/02/2019 CLINICAL HISTORY: Fever. GB stones seen on Ct angio, abd pain EXAM MEASUREMENTS: Liver Length: 13.8 cm Gallbladder Wall: 0.2 cm CBD: 0.7 cm Right Kidney: 9.9 x 5.3 x 6.1 cm Pancreas: Obscured due to overlying bowel gas. Liver: Normal. Gallbladder: Cholelithiasis. No gallbladder wall thickening. Difficult to assess for pericholecystic edema due to overlying bowel gas. Rate Reviewer reports negative sonographic Ames sign. CBD: Normal. Right Kidney: Normal. IMPRESSION: 1. Cholelithiasis. No gallbladder wall thickening or sonographic Ames's sign to suggest acute jaqui cystitis. Pericholecystic edema cannot be accurately assessed due to overlying bowel gas. 2. Nonvisualization of the pancreas due to overlying bowel gas.
--- NOTE | 2019-12-04 09:28 | P.CONS ---
History of Present Illness - Reason for Consult Consult date: 12/03/19 Fever Requesting physician: Raffi Hanson - Chief Complaint Chest pain x 2 days - History of Present Illness Patient is 84 year male presenting to the ER at [facility] on 12/02/2023 2 to three-day history of chest pain on the patient was cutting his lawn pain was mostly substernal area and did have some associated shortness of breath. Denies significant cough or sputum production no nausea no vomiting no abdominal pain or any diarrhea on arrival to the ER the patient was afebrile subsequently the patient to spike a fever of 101F yesterday morning, patient initial white count was normal subsequently did have mild leukopenia this morning the white count 3.4 as well as lymphopenia, liver enzymes are normal d-dimer elevated urine was positive with moderately leukocyte estrace and a WBC, patient chest x-ray was negative for acute infiltrate CT angiogram of the chest was negative for PE or any pneumonia patient is evidence of gallstone pa tient was started on Rocephin 1 g daily infectious disease was consulted for further management of antibiotic therapy and possible source for his fever Review of Systems Positive point has been mentioned in the HPI rest of the systems are negative Past Medical History Past Medical History: Coronary Artery Disease (CAD), Chest Pain / Angina, Diabetes Mellitus, Hyperlipidemia, Hypertension Additional Past Medical History / Comment(s): NIDDM type II, neuropathy bilateral hands, colon cancer with resection/colostomy, hematuria with acute blood loss anemia with transfusion (cystoscopy normal per pt), bronchitis, History of Any Multi-Drug Resistant Organisms: None Reported Past Surgical History: Bowel Resection, Heart Catheterization, Orthopedic Surge ry Additional Past Surgical History / Comment(s): Sigmoid resection/colostomy, colonoscopy, 2008 cardiac cath treated medically, cystoscopy, R shoulder rotator cuff surgery, bilateral cataract removals/lens implants. Past Anesthesia/Blood Transfusion Reactions: No Reported Reaction Additional Past Anesthesia/Blood Transfusion Reaction / Comm: Pt has received blood in past without reaction. Smoking Status: Former smoker - Past Family History Father History Unknown: Yes Family Medical History: No Reported History Additional Family Medical History / Comment(s): Father was killed during WWII Mother Family Medical History: No Reported History Additional Family Medical History / Comment(s): Mother in [facility] during Medications and Allergies Home Medications Medication Instructions Recorded Confirmed Type carvediloL [Coreg] 6.25 mg PO BID 12/22/18 12/02/19 History glipiZIDE [Glucotrol] 5 mg PO AC-TID 12/22/18 12/02/19 History hydrALAZINE HCL 50 mg PO AC-BID 12/22/18 12/02/19 History hydroCHLOROthiazide [Hydrodiuril] 25 mg PO DAILY 12/22/18 12/02/19 History metFORMIN HCL [Glucophage] 500 mg PO BID-W/MEALS #60 tab 12/26/18 12/02/19 Rx sitaGLIPtin [Januvia] 50 mg PO DAILY 12/02/19 12/02/19 History Allergies Allergy/AdvReac Type Severity Reaction Status Date / Time No Known Allergies Allergy Verified 12/02/19 12:05 Physical Exam Vitals: Vital Signs Temp Pulse Resp BP Pulse Ox 12/03/19 15:00 97.5 F L 72 18 133/60 94 L 12/03/19 07:32 101.0 F H 70 20 148/57 93 L 12/03/19 03:00 99.3 F 85 18 127/63 96 12/02/19 21:00 99.8 F H 89 20 148/69 96 Intake and Output 12/03/19 12/03/19 12/03/19 06:59 14:59 22:59 Intake Total 960 Balance 960 Intake: Oral 960 Other: Voiding Method Toilet Toilet # Voids 1 3 GENERAL DESCRIPTION: An elderly male lying in bed, no distress. No tachypnea or accessory muscle of respiration use. HEENT: Shows Pallor , no scleral icterus. Oral mucous membrane is dry. No pharyngeal erythema or thrush NECK: Trachea central, no thyromegaly. LUNGS: Unlabored breathing. Clear to auscultation anteriorly. No wheeze or crackle. HEART: S1, S2, regular rate and rhythm. No loud murmur ABDOMEN: Soft, no tenderness , guarding or rigidity, no organomegaly EXTREMITIES: No edema of feet. SKIN: No rash, no masses palpable. NEUROLOGICAL: The patient is awake, alert, oriented x2, mood and affect normal. Results CBC & Chem 7: 12/04/19 05:30 12/04/19 05:30 Labs: Abnormal Lab Results - Last 24 Hours (Table) 12/02/19 12/02/19 12/03/19 Range/Units 18:14 21:09 05:28 WBC (3.8-10.6) k/uL RBC (4.30-5.90) m/uL Hgb (13.0-17.5) gm/dL Hct (39.0-53.0) % Plt Count (150-450) k/uL Lymphocytes # (1.0-4.8) k/uL Sodium 134 L (137-145) mmol/L BUN 27 H (9-20) mg/dL Glucose 131 H (74-99) mg/dL POC Glucose (mg/dL) 139 H 232 H (75-99) mg/dL Triglycerides 178 H (<150) mg/dL HDL Cholesterol 31 L (40-60) mg/dL Urine Protein (Negative) Urine Blood (Negative) Ur Leukocyte Esterase (Negative) Urine WBC (0-5) /hpf Amorphous Sediment (None) /hpf Urine Bacteria (None) /hpf Urine Mucus (None) /hpf 12/03/19 12/03/19 12/03/19 Range/Units 05:28 06:28 11:10 WBC 3.4 L (3.8-10.6) k/uL RBC 3.29 L (4.30-5.90) m/uL Hgb 10.4 L (13.0-17.5) gm/dL Hct 31.6 L (39.0-53.0) % Plt Count 126 L (150-450) k/uL Lymphocytes # 0.6 L (1.0-4.8) k/uL Sodium (137-145) mmol/L BUN (9-20) mg/dL Glucose (74-99) mg/dL POC Glucose (mg/dL) 169 H (75-99) mg/dL Triglycerides (<150) mg/dL HDL Cholesterol (40-60) mg/dL Urine Protein 1+ H (Negative) Urine Blood Trace H (Negative) Ur Leukocyte Esterase Moderate H (Negative) Urine WBC 8 H (0-5) /hpf Amorphous Sediment Rare H (None) /hpf Urine Bacteria Many H (None) /hpf Urine Mucus Rare H (None) /hpf 12/03/19 12/03/19 Range/Units 11:20 16:28 WBC (3.8-10.6) k/uL RBC (4.30-5.90) m/uL Hgb (13.0-17.5) gm/dL Hct (39.0-53.0) % Plt Count (150-450) k/uL Lymphocytes # (1.0-4.8) k/uL Sodium (137-145) mmol/L BUN (9-20) mg/dL Glucose (74-99) mg/dL POC Glucose (mg/dL) 238 H 168 H (75-99) mg/dL Triglycerides (<150) mg/dL HDL Cholesterol (40-60) mg/dL Urine Protein (Negative) Urine Blood (Negative) Ur Leukocyte Esterase (Negative) Urine WBC (0-5) /hpf Amorphous Sediment (None) /hpf Urine Bacteria (None) /hpf Urine Mucus (None) /hpf Assessment and Plan Assessment: 1- patient with a fever of 101F and this patient initially presented to hospital with chest pain however chest x-ray and CT angiogram has been negative for pneumonia, patient did have positive UA and likely the source of his fever however CT angiogram which shows evidence of gallstone cholecystitis this to be ruled out to be source of his fever (1) Fever Current Visit: Yes Status: Acute Code(s): R50.9 - FEVER, UNSPECIFIED SNOMED Code(s): 121604668 (2) Urinary tract infection Current Visit: Yes Status: Acute Code(s): N39.0 - URINARY TRACT INFECTION, SITE NOT SPECIFIED SNOMED Code(s): 55345925 Plan: 1- Rocephin 1 g IVPB daily to continue 2-check ultrasound of the liver and gallbladder area We will follow on clinical condition and cultures to further adjust medication if needed Thank you for this consultation will follow this patient with you Time with Patient: Greater than 30
[2019-12-04 12:21] LABS: Glucose,Whole Blood 217 mg/dL (75-99)
--- NOTE | 2019-12-04 12:50 | P.PN ---
Subjective Progress Note Date: 12/04/19 Aracelis Melchor, is an 84-year-old male who presented to [facility] emergency room with a chief complaint of chest pain, patient describes a pressure sensation in the middle of his chest radiating to the back for 2 days on and off prior to admission he was also having some shortness of breath with activity he denies any diaphoresis no nausea or vomiting no radiation of the pain to the neck or to the arms, patient was evaluated in the emergency room his EKG revealed normal sinus rhythm with first-degree AV block and right bundle branch block, troponin level was 0.015 d-dimer was elevated at 2.05 CT angiogram of the chest was done and did not reveal any evidence of pulmonary embolism. Patient was admitted to telemetry floor cardiology consultation was requested. His temperature on presentation was 99.5 pulse 71 respiration 18 blood pressure 130/73 pulse ox 95% on room air BNP was slightly elevated at 1750 liver enzymes amylase and lipase were normal. Patient has a known history of hypertension, hyperlipidemia, cla-qdifpny-hnnaqyoba diabetes mellitus, he has history of bowel obstruction with bowel resection and colostomy placement. Patient has a previous history of smoking. On 12/03/2019 patient was seen and examined on the medical floor he is alert and oriented 3 in no distress there is significant fever today no chills no headache or dizziness no chest pain, he is still having some shortness of breath and cough there is no nausea or vomiting no abdominal pain no diarrhea no burning with urination no frequency or urgency and no hematuria he is having difficulty initiating urination, urine analysis was done and was positive for urinary tract infection, patient was started on IV Rocephin, Covid 19 testing is still pending On 12/04/2019 patient was seen and examined on the medical floor he is still complaining of cough and shortness of breath he still has low-grade fever otherwise no complaints there is no headache or dizziness no chest pain no nausea or vomiting no abdominal pain no diarrhea no burning was urination no frequency or urgency and no hematuria. Today Will recheck chest x-ray PA and lateral will check sputum for culture and Gram stain Covid 19 testing came back negative will follow closely Objective - Vital Signs Vital signs: Vital Signs Temp 98.2 F 12/04/19 08:05 Pulse 80 12/04/19 09:00 Resp 18 12/04/19 09:00 BP 110/57 12/04/19 08:05 Pulse Ox 91 L 12/04/19 08:05 Intake & Output 12/03/19 12/04/19 12/04/19 18:59 06:59 18:59 Intake Total 960 Balance 960 Intake: Oral 960 Other: Voiding Method Toilet Toilet Toilet # Voids 3 1 # Bowel Movements 1 - Exam In general patient is alert and oriented 3 in no apparent distress HEENT head normocephalic and atraumatic Neck is supple no JVD no goiter no lymphadenopathy no carotid bruit Chest exam reveals scattered crackles bilaterally no wheezing Cardiac exam reveals regular heart sounds S1 and S2 no gallops no murmurs Abdomen is soft nontender no organomegaly with normal bowel sounds Extremity exam reveals no edema no cyanosis or clubbing Neurological examination reveals no gross focal deficits - Labs CBC & Chem 7: 12/04/19 05:30 12/04/19 05:30 Labs: Abnormal Lab Results - Last 24 Hours (Table) 12/03/19 12/03/19 12/03/19 Range/Units 11:10 16:28 21:33 WBC (3.8-10.6) k/uL RBC (4.30-5.90) m/uL Hgb (13.0-17.5) gm/dL Hct (39.0-53.0) % Lymphocytes # (Manual) (1.0-4.8) k/uL Sodium (137-145) mmol/L Potassium (3.5-5.1) mmol/L Chloride (98-107) mmol/L BUN (9-20) mg/dL Glucose (74-99) mg/dL POC Glucose (mg/dL) 168 H 140 H (75-99) mg/dL Urine Protein 1+ H (Negative) Urine Blood Trace H (Negative) Ur Leukocyte Esterase Moderate H (Negative) Urine WBC 8 H (0-5) /hpf Amorphous Sediment Rare H (None) /hpf Urine Bacteria Many H (None) /hpf Urine Mucus Rare H (None) /hpf 12/04/19 12/04/19 12/04/19 Range/Units 05:30 05:30 06:36 WBC 2.8 L (3.8-10.6) k/uL RBC 3.42 L (4.30-5.90) m/uL Hgb 10.8 L (13.0-17.5) gm/dL Hct 32.5 L (39.0-53.0) % Lymphocytes # (Manual) 0.78 L (1.0-4.8) k/uL Sodium 135 L (137-145) mmol/L Potassium 3.3 L (3.5-5.1) mmol/L Chloride 97 L (98-107) mmol/L BUN 31 H (9-20) mg/dL Glucose 111 H (74-99) mg/dL POC Glucose (mg/dL) 128 H (75-99) mg/dL Urine Protein (Negative) Urine Blood (Negative) Ur Leukocyte Esterase (Negative) Urine WBC (0-5) /hpf Amorphous Sediment (None) /hpf Urine Bacteria (None) /hpf Urine Mucus (None) /hpf Assessment and Plan Plan: 1. Episodes of chest pain on and off for the last 2 days 2. Elevated d-dimer, CTA of the chest was negative for pulmonary embolism 3. Underlying history of hypertension 4. Underlying history of hyperlipidemia 5. Underlying history of goz-epohcdb-mmkvgcuez diabetes mellitus 6. Low-grade fever on presentation, 99.5 and shortness of breath will check Covid 19 testing, results are still pending, today temperature is up to 101 patient has evidence of urinary tract infection he was started on IV Rocephin he is also having difficulty urinating he is well known to Dr. enamorado, consultation was requested At this time patient is admitted to telemetry floor Check serial EKGs and cardiac enzymes to rule out acute coronary syndrome Consult cardiology Check lipid profile Check bilateral lower extremity Doppler rule out DVT Start Lovenox 40 mg subcu every day Will follow closely
--- NOTE | 2019-12-04 14:20 | XR ---
EXAMINATION TYPE: XR chest 2V DATE OF EXAM: 12/04/2019 CLINICAL HISTORY: Shortness of breath TECHNIQUE: Frontal and lateral views of the chest are obtained. COMPARISON: 12/02/2019 chest radiograph FINDINGS: The cardiomediastinal silhouette is within normal limits for size. Pulmonary vasculature i s normal. There is silhouetting of the heart in the region of the lingula. No pleural effusion or pne umothorax seen. The osseous structures are intact. IMPRESSION: Hazy silhouetting in the region of the left lingula. Findings may represent atelectasis o r airspace disease.
[2019-12-04 17:18] LABS: Glucose,Whole Blood 124 mg/dL (75-99)
--- NOTE | 2019-12-04 17:19 | PN ---
PROGRESS NOTE DATE OF SERVICE: 12/04/2019 REASON FOR FOLLOWUP: Fever, likely urinary tract infection. INTERVAL HISTORY: Patient is currently afebrile. The patient is breathing comfortably. The patient denies having any chest pain. No shortness of breath, no cough. No nausea. No abdominal pain, no diarrhea. PHYSICAL EXAMINATION: Blood pressure 113/70 with a pulse of 80, temperature 98.3, he is 96% on room air. The patient is an elderly male, up in the chair in no distress. RESPIRATORY SYSTEM: Unlabored breathing, decreased breath sounds at bases, no wheeze. HEART: S1, S2. Regular rate and rhythm. ABDOMEN: Soft, no tenderness. LABS: Hemoglobin is 10.1, white count is 2.8, BUN of 31, creatinine 1.18. Chest x-ray this morning has left lingula likely atelectasis. Ultrasound with no features of cholecystitis. DIAGNOSTIC IMPRESSION AND PLAN: Patient with fever, source likely urinary tract infection in this patient clinically responded to Rocephin to continue while waiting for the culture to finalize. Continue supportive care. MMODL / IJN: [id number] /
--- NOTE | 2019-12-04 17:52 | P.GSCN ---
History of Present Illness Consult date: 12/04/19 Reason for Consult: Urinary retention and UTI History of present illness: Mr Melchor is 84 yo male admitted to the hospital with a three-day history of chest pain and fever of 101F yesterday morning, Urology is consulted for BPH and UTI. He indicated he follow us up with Dr Ritter for BPH. At at baseline he complains of straining with urination and weak stream. He is not on any medication for BPH. He denies any hx of Recurrent UTIs or urinary retention. His PVR is 0 mL. His UA on admission was concerning for UTI, urine culture was not obtained on admission. He denies any dysuria or bladder pressure Review of Systems - Constitutional Reports fever - EENT Ears, nose, mouth and throat: Denies dysphagia - Cardiovascular Reports chest pain, Denies shortness of breath - Respiratory Denies cough, Denies 7 - Gastrointestinal Reports as per HPI - Genitourinary Denies dysuria, Denies flank pain, Denies hematuria - Neurological Denies headaches, Denies syncope Past Medical History Past Medical History: Coronary Artery Disease (CAD), Chest Pain / Angina, Diabetes Mellitus, Hyperlipidemia, Hypertension Additional Past Medical History / Comment(s): NIDDM type II, neuropathy bilateral hands, colon cancer with resection/colostomy, hematuria with acute b lood loss anemia with transfusion (cystoscopy normal per pt), bronchitis, History of Any Multi-Drug Resistant Organisms: None Reported Past Surgical History: Bowel Resection, Heart Catheterization, Orthopedic Surgery Additional Past Surgical History / Comment(s): Sigmoid resection/colostomy, colonoscopy, 2007 cardiac cath treated medically, cystoscopy, R shoulder rotator cuff surgery, bilateral cataract removals/lens implants. Past Anesthesia/Blood Transfusion Reactions: No Reported Reaction Additional Past Anesthesia/Blood Transfusion Reaction / Comm: Pt has received blood in past without reaction. Smoking Status: Former smoker - Past Family History Father History Unknown: Yes Family Medical History: No Reported History Additional Family Medical History / Comment(s): Father was killed during WWII Mother Family Medical History: No Reported History Additional Family Medical History / Comment(s): Mother in [facility] during [facility] Medications and Allergies Home Medications Medication Instructions Recorded Confirmed Type carvediloL [Coreg] 6.25 mg PO BID 12/22/18 12/02/19 History glipiZIDE [Glucotrol] 5 mg PO AC-TID 12/22/18 12/02/19 History hydrALAZINE HCL 50 mg PO AC-BID 12/22/18 12/02/19 History hydroCHLOROthiazide [Hydrodiuril] 25 mg PO DAILY 12/22/18 12/02/19 History metFORMIN HCL [Glucophage] 500 mg PO BID-W/MEALS #60 tab 12/26/18 12/02/19 Rx sitaGLIPtin [Januvia] 50 mg PO DAILY 12/02/19 12/02/19 History Allergies Allergy/AdvReac Type Severity Reaction Status Date / Time No Known Allergies Allergy Verified 12/02/19 12:05 Surgical - Exam Vital Signs Temp Pulse Resp BP Pulse Ox 99.5 F 71 18 130/73 95 12/02/19 11:49 12/02/19 11:49 12/02/19 11:49 12/02/19 11:49 12/02/19 11:49 - General no distress, no pain - Eyes PERRL, normal ocular movement - ENT normal nares, normal mucosa - Respiratory normal expansion, normal respiratory effort - Psychiatric oriented to time, oriented to person, oriented to place, speech is normal Results - Labs 12/04/19 05:30 12/04/19 05:30 Abnormal Lab Results - Last 24 Hours (Table) 12/03/19 12/03/19 12/04/19 Range/Units 16:28 21:33 05:30 WBC 2.8 L (3.8-10.6) k/uL RBC 3.42 L (4.30-5.90) m/uL Hgb 10.8 L (13.0-17.5) gm/dL Hct 32.5 L (39.0-53.0) % Lymphocytes # (Manual) 0.78 L (1.0-4.8) k/uL Sodium (137-145) mmol/L Potassium (3.5-5.1) mmol/L Chloride (98-107) mmol/L BUN (9-20) mg/dL Glucose (74-99) mg/dL POC Glucose (mg/dL) 168 H 140 H (75-99) mg/dL 12/04/19 12/04/19 12/04/19 Range/Units 05:30 06:36 12:19 WBC (3.8-10.6) k/uL RBC (4.30-5.90) m/uL Hgb (13.0-17.5) gm/dL Hct (39.0-53.0) % Lymphocytes # (Manual) (1.0-4.8) k/uL Sodium 135 L (137-145) mmol/L Potassium 3.3 L (3.5-5.1) mmol/L Chloride 97 L (98-107) mmol/L BUN 31 H (9-20) mg/dL Glucose 111 H (74-99) mg/dL POC Glucose (mg/dL) 128 H 217 H (75-99) mg/dL Diabetes panel 12/04/19 Range/Units 05:30 Sodium 135 L (137-145) mmol/L Potassium 3.3 L (3.5-5.1) mmol/L Chloride 97 L (98-107) mmol/L Carbon Dioxide 27 (22-30) mmol/L BUN 31 H (9-20) mg/dL Creatinine 1.18 (0.66-1.25) mg/dL Glucose 111 H (74-99) mg/dL Calcium 8.7 (8.4-10.2) mg/dL AST 29 (17-59) U/L ALT 19 (4-49) U/L Alkaline Phosphatase 74 (38-126) U/L Total Protein 6.8 (6.3-8.2) g/dL Albumin 3.6 (3.5-5.0) g/dL Calcium panel 12/04/19 Range/Units 05:30 Calcium 8.7 (8.4-10.2) mg/dL Albumin 3.6 (3.5-5.0) g/dL Pituitary panel 12/04/19 Range/Units 05:30 Sodium 135 L (137-145) mmol/L Potassium 3.3 L (3.5-5.1) mmol/L Chloride 97 L (98-107) mmol/L Carbon Dioxide 27 (22-30) mmol/L BUN 31 H (9-20) mg/dL Creatinine 1.18 (0.66-1.25) mg/dL Glucose 111 H (74-99) mg/dL Calcium 8.7 (8.4-10.2) mg/dL Adrenal panel 12/04/19 Range/Units 05:30 Sodium 135 L (137-145) mmol/L Potassium 3.3 L (3.5-5.1) mmol/L Chloride 97 L (98-107) mmol/L Carbon Dioxide 27 (22-30) mmol/L BUN 31 H (9-20) mg/dL Creatinine 1.18 (0.66-1.25) mg/dL Glucose 111 H (74-99) mg/dL Calcium 8.7 (8.4-10.2) mg/dL Total Bilirubin 0.7 (0.2-1.3) mg/dL AST 29 (17-59) U/L ALT 19 (4-49) U/L Alkaline Phosphatase 74 (38-126) U/L Total Protein 6.8 (6.3-8.2) g/dL Albumin 3.6 (3.5-5.0) g/dL Assessment and Plan Assessment: 84 yo male admitted with chest pain and fever, Urology is consulted for BPH and Possible UTI. His PVR is 0 mL, he follow us up with Dr Ritter. Plan: -Can start flomax for his LUTS -Given his fever and positive UA, can continue abx. Patient currently on Ceftrixone, culture was not obtained on admission. Antibiotics choice and duration per ID, -F/U with Dr Ritter in 1-2 weeks
[2019-12-04 21:03] LABS: Glucose,Whole Blood 170 mg/dL (75-99)
[2019-12-05 06:47] LABS: Glucose,Whole Blood 138 mg/dL (75-99)
[2019-12-05] MEDS: hydrALAZINE HCL 50 MG TAB PO SCH ×2 (07:01→17:33)
[2019-12-05] MEDS: glipiZIDE 5 MG TAB PO SCH ×3 (07:01→17:34)
[2019-12-05] MEDS: carvediloL 6.25 MG TAB PO SCH ×2 (07:01→19:31)
[2019-12-05] MEDS: INSULIN ASPART (NovoLOG) 100 UNIT/ML VIAL SQ SCH ×4 (07:01→21:07)
[2019-12-05 07:20] LABS: Albumin 3.4 g/dL (3.5-5.0); Calcium 8.6 mg/dL (8.4-10.2); Potassium 3.4 mmol/L (3.5-5.1); Total Bilirubin 0.6 mg/dL (0.2-1.3); Total Protein 6.5 g/dL (6.3-8.2)
[2019-12-05 07:50] LABS: HCT 31.5 % (39.0-53.0); HGB 10.8 gm/dL (13.0-17.5); MCH 32.2 pg (25.0-35.0); MCHC 34.1 g/dL (31.0-37.0); MCV 94.5 fL (80.0-100.0); Mean Platelet Volume 8.7; Platelet Count 149 k/uL (150-450); RBC 3.34 m/uL (4.30-5.90); RDW 13.3 % (11.5-15.5); WBC 2.6 k/uL (3.8-10.6)
[2019-12-05] MEDS: hydroCHLOROthiazide 25 MG TAB PO SCH (09:02)
[2019-12-05] MEDS: TAMSULOSIN 0.4 MG CAP.ER.24H PO SCH (09:02)
[2019-12-05] MEDS: ENOXAPARIN 40 MG/0.4 ML SYRINGE SQ SCH (09:02)
[2019-12-05] MEDS: LINAGLIPTIN 5 MG TABLET PO SCH (09:02)
[2019-12-05] MEDS: ASPIRIN 325 MG TAB PO SCH (09:02)
[2019-12-05 09:26] LABS: Band Neutrophils % 1 %; Eosinophils # (M) 0.03 k/uL (0-0.7); Lymphocytes # (M) 0.94 k/uL (1.0-4.8); Monocytes # (M) 0.39 k/uL (0-1.0); Neutrophils % (M) 47 %; Nucleated Red Blood Cells 0 /100 WBC (0-0); Total Cells Counted 100
[2019-12-05] MEDS ORDERED: Potassium Replacement Protocol 1 EACH MISC MISCELLANE PRN ×2 (11:28→12:59)
[2019-12-05 11:41] LABS: Glucose,Whole Blood 222 mg/dL (75-99)
--- NOTE | 2019-12-05 13:21 | P.PN ---
Subjective Progress Note Date: 12/05/19 Aracelis Melchor, is an 84-year-old male who presented to [facility] emergency room with a chief complaint of chest pain, patient describes a pressure sensation in the middle of his chest radiating to the back for 2 days on and off prior to admission he was also having some shortness of breath with activity he denies any diaphoresis no nausea or vomiting no radiation of the pain to the neck or to the arms, patient was evaluated in the emergency room his EKG revealed normal sinus rhythm with first-degree AV block and right bundle branch block, troponin level was 0.015 d-dimer was elevated at 2.05 CT angiogram of the chest was done and did not reveal any evidence of pulmonary embolism. Patient was admitted to telemetry floor cardiology consultation was requested. His temperature on presentation was 99.5 pulse 71 respiration 18 blood pressure 130/73 pulse ox 95% on room air BNP was slightly elevated at 1750 liver enzymes amylase and lipase were normal. Patient has a known history of hypertension, hyperlipidemia, zyx-[id number] diabetes mellitus, he has history of bowel obstruction with bowel resection and colostomy placement. Patient has a previous history of smoking. On 12/03/2019 patient was seen and examined on the medical floor he is alert and oriented 3 in no distress there is significant fever today no chills no headache or dizziness no chest pain, he is still having some shortness of breath and cough there is no nausea or vomiting no abdominal pain no diarrhea no burning with urination no frequency or urgency and no hematuria he is having difficulty initiating urination, urine analysis was done and was positive for urinary tract infection, patient was started on IV Rocephin, Covid 19 testing is still pending On 12/04/2019 patient was seen and examined on the medical floor he is still complaining of cough and shortness of breath he still has low-grade fever otherwise no complaints there is no headache or dizziness no chest pain no nausea or vomiting no abdominal pain no diarrhea no burning was urination no frequency or urgency and no hematuria. Today Will recheck chest x-ray PA and lateral will check sputum for culture and Gram stain Covid 19 testing came back negative will follow closely On 12/05/2019 patient was seen and examined on the medical floor he is feeling better he is still complaining of cough and shortness of breath he is complaining of abdominal discomfort there is no fever or chills no headache or dizziness no chest pain no nausea or vomiting no burning was urination no frequency or urgency and no hematuria Objective - Vital Signs Vital signs: Vital Signs Temp 97.5 F L 12/05/19 09:00 Pulse 59 L 12/05/19 09:00 Resp 18 12/05/19 09:00 BP 112/49 12/05/19 09:00 Pulse Ox 94 L 12/05/19 09:00 Intake & Output 12/04/19 12/05/19 12/05/19 18:59 06:59 18:59 Intake Total 240 400 Output Total 250 350 Balance -10 50 Intake: Oral 240 400 Output: Urine 250 350 Post Void Residual 0 Other: Voiding Method Toilet Toilet Toilet Urinal Urinal # Voids 2 1 - Exam In general patient is alert and oriented 3 in no apparent distress HEENT head normocephalic and atraumatic Neck is supple no JVD no goiter no lymphadenopathy no carotid bruit Chest exam reveals scattered crackles bilaterally no wheezing Cardiac exam reveals regular heart sounds S1 and S2 no gallops no murmurs Abdomen is soft nontender no organomegaly with normal bowel sounds Extremity exam reveals no edema no cyanosis or clubbing Neurological examination reveals no gross focal deficits - Labs CBC & Chem 7: 12/05/19 06:39 12/05/19 06:39 Labs: Abnormal Lab Results - Last 24 Hours (Table) 12/04/19 12/04/19 12/04/19 Range/Units 12:19 17:13 21:02 WBC (3.8-10.6) k/uL RBC (4.30-5.90) m/uL Hgb (13.0-17.5) gm/dL Hct (39.0-53.0) % Plt Count (150-450) k/uL Neutrophils # (Manual) (1.3-7.7) k/uL Lymphocytes # (Manual) (1.0-4.8) k/uL Sodium (137-145) mmol/L Potassium (3.5-5.1) mmol/L BUN (9-20) mg/dL Glucose (74-99) mg/dL POC Glucose (mg/dL) 217 H 124 H 170 H (75-99) mg/dL Albumin (3.5-5.0) g/dL 12/05/19 12/05/19 12/05/19 Range/Units 06:39 06:39 06:45 WBC 2.6 L (3.8-10.6) k/uL RBC 3.34 L (4.30-5.90) m/uL Hgb 10.8 L (13.0-17.5) gm/dL Hct 31.5 L (39.0-53.0) % Plt Count 149 L (150-450) k/uL Neutrophils # (Manual) 1.20 L (1.3-7.7) k/uL Lymphocytes # (Manual) 0.94 L (1.0-4.8) k/uL Sodium 136 L (137-145) mmol/L Potassium 3.4 L (3.5-5.1) mmol/L BUN 34 H (9-20) mg/dL Glucose 140 H (74-99) mg/dL POC Glucose (mg/dL) 138 H (75-99) mg/dL Albumin 3.4 L (3.5-5.0) g/dL Microbiology - Last 24 Hours (Table) 12/04/19 21:22 Gram Stain - Preliminary Sputum Sputum Culture - Preliminary Assessment and Plan Plan: 1. Episodes of chest pain on and off for the last 2 days 2. Elevated d-dimer, CTA of the chest was negative for pulmonary embolism 3. Underlying history of hypertension 4. Underlying history of hyperlipidemia 5. Underlying history of ubg-xylvocp-unenmtoop diabetes mellitus 6. Low-grade fever on presentation, 99.5 and shortness of breath will check Covid 19 testing, results are still pending, today temperature is up to 101 patient has evidence of urinary tract infection he was started on IV Rocephin he is also having difficulty urinating he is well known to Dr. enamorado, consultation was requested At this time patient is admitted to telemetry floor Check serial EKGs and cardiac enzymes to rule out acute coronary syndrome Consult cardiology Check lipid profile Check bilateral lower extremity Doppler rule out DVT Start Lovenox 40 mg subcu every day Will follow closely
[2019-12-05] MEDS: POTASSIUM CHLORIDE ER 20 MEQ TAB.ER PO SCH ×2 (14:08→15:12)
--- NOTE | 2019-12-05 15:34 | PN ---
PROGRESS NOTE DATE OF SERVICE: 12/05/2019 REASON FOR FOLLOWUP: Urinary tract infection and fever. INTERVAL HISTORY: Patient is currently afebrile. The patient is feeling better. Breathing comfortably. Denies having any chest pain, shortness of breath. Minimal cough. No nausea. No abdominal pain or diarrhea. PHYSICAL EXAMINATION: Blood pressure 112/41 with a pulse of 59, temperature is 97.5. He is 94% on room air. General description is an elderly male lying in bed in no distress. Respiratory system: Unlabored breathing, decreased breath sounds in the base, no wheeze. Heart S1, S2. Regular rate. Abdomen soft, no tenderness. LABS: Hemoglobin ( ) 2.6, BUN of 34, creatinine 1.15. Sputum pending. DIAGNOSTIC IMPRESSION AND PLAN: Patient with a fever with concern for possible urinary tract infection with positive UA and no other obvious sources. The patient is currently responding to the Rocephin, to continue therapy with oral Ceftin. Continue supportive care. MMODL / IJN: [id number] /
[2019-12-05 17:14] LABS: Glucose,Whole Blood 166 mg/dL (75-99)
[2019-12-05 21:02] LABS: Glucose,Whole Blood 158 mg/dL (75-99)
[2019-12-06 04:11] VITALS: RESP 18
[2019-12-06 06:30] LABS: HCT 31.5 % (39.0-53.0); HGB 10.2 gm/dL (13.0-17.5); MCH 30.5 pg (25.0-35.0); MCHC 32.4 g/dL (31.0-37.0); MCV 94.1 fL (80.0-100.0); Platelet Count 149 k/uL (150-450); RBC 3.35 m/uL (4.30-5.90); RDW 13.5 % (11.5-15.5); WBC 2.3 k/uL (3.8-10.6)
[2019-12-06 06:42] LABS: Albumin 3.4 g/dL (3.5-5.0); Calcium 8.6 mg/dL (8.4-10.2); Potassium 3.5 mmol/L (3.5-5.1); Total Bilirubin 0.5 mg/dL (0.2-1.3); Total Protein 6.6 g/dL (6.3-8.2)
[2019-12-06 06:48] LABS: Glucose,Whole Blood 175 mg/dL (75-99)
[2019-12-06] MEDS: hydrALAZINE HCL 50 MG TAB PO SCH (06:55)
[2019-12-06] MEDS: INSULIN ASPART (NovoLOG) 100 UNIT/ML VIAL SQ SCH ×2 (06:55→13:09)
[2019-12-06] MEDS: glipiZIDE 5 MG TAB PO SCH ×2 (06:56→13:09)
[2019-12-06] MEDS: carvediloL 6.25 MG TAB PO SCH (06:56)
[2019-12-06 08:12] VITALS: BP 114/62; PULSE 76; TEMP 97.7
[2019-12-06 08:42] LABS: Basophils # (M) 0.02 k/uL (0-0.2); Eosinophils # (M) 0.09 k/uL (0-0.7); Lymphocytes # (M) 0.83 k/uL (1.0-4.8); Monocytes # (M) 0.39 k/uL (0-1.0); Neutrophils # (M) 0.97 k/uL (1.3-7.7); Neutrophils % (M) 42 %; Nucleated Red Blood Cells 0 /100 WBC (0-0); Total Cells Counted 100
[2019-12-06] MEDS: ENOXAPARIN 40 MG/0.4 ML SYRINGE SQ SCH (09:36)
[2019-12-06] MEDS: LINAGLIPTIN 5 MG TABLET PO SCH (09:37)
[2019-12-06] MEDS: ASPIRIN 325 MG TAB PO SCH (09:37)
[2019-12-06] MEDS: TAMSULOSIN 0.4 MG CAP.ER.24H PO SCH (09:37)
[2019-12-06] MEDS: hydroCHLOROthiazide 25 MG TAB PO SCH (09:37)
--- NOTE | 2019-12-06 11:22 | P.DS ---
Providers Date of admission: 12/03/19 12:02 Expected date of discharge: 12/06/19 Attending physician: Raffi Hanson Consults: 12/02/19 14:49 Consult Physician Urgent Consulting Provider: Antonieta Cyr Consult Reason/Comments: chest pain Do you want consulting provider notified?: Yes 12/02/19 17:55 Consult Physician Routine Consulting Provider: Ronaldo Mars Consult Reason/Comments: shortness of breath Do you want consulting provider notified?: Yes 12/03/19 10:02 Consult Physician Routine Consulting Provider: Chula Peralta Consult Reason/Comments: fever Do you want consulting provider notified?: Yes 12/03/19 16:52 Consult Physician Routine Consulting Provider: Sai Ritter Consult Reason/Comments: UTI, Urinary retention Do you want consulting provider notified?: Yes 12/06/19 09:42 Consult Physician Routine Consulting Provider: Ahmet Gordillo Consult Reason/Comments: leukopenia, anemia Do you want consulting provider notified?: Yes Primary care physician: Raffi Hanson [facility] Course: Diagnosis on discharge: 1. Episodes of chest pain on and off for the last 2 days 2. Elevated d-dimer, CTA of the chest was negative for pulmonary embolism 3. Underlying history of hypertension 4. Underlying history of hyperlipidemia 5. Underlying history of fom-ebxjdtc-gmoaehbzl diabetes mellitus 6. Low-grade fever on presentation, 99.5 and shortness of breath will check Covid 19 testing, results are still pending, today temperature is up to 101 patient has evidence of urinary tract infection he was started on IV Rocephin he is also having difficulty urinating he is well known to Dr. ritter, consultation was requested, 7. BPH patient was started on Flomax 0.4 mg once daily 8. Cholelithiasis without evidence of acute cholecystitis Hospital course: Aracelis Melchor, is an 84-year-old male who presented to [facility] emergency room with a chief complaint of chest pain, patient describes a pressure sensation in the middle of his chest radiating to the back for 2 days on and off prior to admission he was also having some shortness of breath with activity he denies any diaphoresis no nausea or vomiting no radiation of the pain to the neck or to the arms, patient was evaluated in the emergency room his EKG revealed normal sinus rhythm with first-degree AV block and right bundle branch block, troponin level was 0.015 d-dimer was elevated at 2.05 CT angiogram of the chest was done and did not reveal any evidence of pulmonary embolism. Patient was admitted to telemetry floor cardiology consultation was requested. His temperature on presentation was 99.5 pulse 71 respiration 18 blood pressure 130/73 pulse ox 95% on room air BNP was slightly elevated at 1750 liver enzymes amylase and lipase were normal. Patient has a known history of hypertension, hyperlipidemia, bfp-rrbptel-ygenonpgb diabetes mellitus, he has history of bowel obstruction with bowel resection and colostomy placement. Patient has a previous history of smoking. On 12/03/2019 patient was seen and examined on the medical floor he is alert and oriented 3 in no distress there is significant fever today no chills no headache or dizziness no chest pain, he is still having some shortness of breath and cough there is no nausea or vomiting no abdominal pain no diarrhea no burning with urination no frequency or urgency and no hematuria he is having difficulty initiating urination, urine analysis was done and was positive for urinary tract infection, patient was started on IV Rocephin, Covid 19 testing is still pending On 12/04/2019 patient was seen and examined on the medical floor he is still complaining of cough and shortness of breath he still has low-grade fever otherwise no complaints there is no headache or dizziness no chest pain no nausea or vomiting no abdominal pain no diarrhea no burning was urination no frequency or urgency and no hematuria. Today Will recheck chest x-ray PA and lateral will check sputum for culture and Gram stain Covid 19 testing came back negative will follow closely On 12/05/2019 patient was seen and examined on the medical floor he is feeling better he is still complaining of cough and shortness of breath he is complaining of abdominal discomfort there is no fever or chills no headache or dizziness no chest pain no nausea or vomiting no burning was urination no frequency or urgency and no hematuria On 12/06/2019 patient was seen and examined on the medical floor he is alert and oriented 3 in no apparent distress, his temperature is down to 97.7, white blood count is still low at 2.3 otherwise patient is doing well he is denying any symptoms, he will be seen today by Dr. Gordillo in that regard to leukopenia, anemia, he will be started on oral antibiotic and discharged home today, he will be followed in our office in 2-3 days for further evaluation and treatment. Patient instructed to return to emergency room if having elevated temperature, or abdominal pain or vomiting. Patient Condition at Discharge: Fair Plan - Discharge Summary Discharge Rx Participant: No New Discharge Prescriptions: New Cefuroxime Axetil [Ceftin] 500 mg PO BID 10 Days #20 tab Aspirin EC [Ecotrin Low Dose] 81 mg PO DAILY 30 Days #30 tablet. Tamsulosin [Flomax] 0.4 mg PO DAILY cap.er.24h Nitroglycerin Sl Tabs [Nitrostat] 0.4 mg SUBLINGUAL Q5M PRN tab PRN Reason: Chest Pain Continue hydrALAZINE HCL 50 mg PO AC-BID glipiZIDE [Glucotrol] 5 mg PO AC-TID carvediloL [Coreg] 6.25 mg PO BID hydroCHLOROthiazide [Hydrodiuril] 25 mg PO DAILY metFORMIN HCL [Glucophage] 500 mg PO BID-W/MEALS #60 tab sitaGLIPtin [Januvia] 50 mg PO DAILY Discharge Medication List carvediloL [Coreg] 6.25 mg PO BID 12/22/18 [History] glipiZIDE [Glucotrol] 5 mg PO AC-TID 12/22/18 [History] hydrALAZINE HCL 50 mg PO AC-BID 12/22/18 [History] hydroCHLOROthiazide [Hydrodiuril] 25 mg PO DAILY 12/22/18 [History] metFORMIN HCL [Glucophage] 500 mg PO BID-W/MEALS #60 tab 12/26/18 [Rx] sitaGLIPtin [Januvia] 50 mg PO DAILY 12/02/19 [History] Aspirin EC [Ecotrin Low Dose] 81 mg PO DAILY 30 Days #30 tablet. 12/06/19 [Rx] Cefuroxime Axetil [Ceftin] 500 mg PO BID 10 Days #20 tab 12/06/19 [Rx] Nitroglycerin Sl Tabs [Nitrostat] 0.4 mg SUBLINGUAL Q5M PRN tab 12/06/19 [Rx] Tamsulosin [Flomax] 0.4 mg PO DAILY cap.er.24h 12/06/19 [Rx] Follow up Appointment(s)/Referral(s): Agusto Brooks MD [STAFF PHYSICIAN] - 2 Weeks Raffi Hanson MD [Primary Care Provider] - 1-2 days Activity/Diet/Wound Care/Special Instructions: *Contact [facility] in [facility] for assistance with transportations, housekeeping services, and meals on wheels if needed: [phone].
--- NOTE | 2019-12-06 11:49 | P.CONS ---
History of Present Illness - Reason for Consult Consult date: 12/06/19 Leukopenia, mild pancytopenia - History of Present Illness The patient is an 84-year-old white male with multiple medical problems. He states that while he was working in the yard he developed discomfort in his upper chest radiating across the shoulders and both arms fairly acutely. He also complained of generalized weakness. He denied any diaphoresis, nausea or vomiting. He was brought to the emergency room where he was ultimately found to have a fever of 101. Cardiac workup was negative. The patient was seen by ID and started on antibiotic for infection, with differential including UTI versus gallbladder. A CTA of the chest negative for PE, and Dopplers of lower extremities were also negative. Abdominal ultrasound showed gallstones but no evidence of cholecystitis. Patient's hemoglobin on admission was in the 10 range. WBC was 2.6 with further declined to 2.3. ANC remained above 500, being 970 today. Platelet counts were 149. Consult was therefore placed a further evaluation and recommendations. Patient himself denies any prior history of blood related problems. However review of his EMR indicates severe anemia in 2019 with hemoglobin down into the 5 range after an admission for hematuria. Review of Systems Constitutional: Reports weakness Eyes: denies blurred vision, denies pain Ears: deny: decreased hearing, ear discharge, earache, tinnitus Ears, nose, mouth and throat: Denies headache, Denies sore throat Cardiovascular: Reports as per HPI, Reports chest pain, Reports dyspnea on exertion Respiratory: Denies cough Gastrointestinal: Denies abdominal pain, Denies diarrhea, Denies nausea, Denies vomiting Genitourinary: Reports as per HPI, Reports urinary hesitancy Musculoskeletal: Reports muscle weakness Integumentary: Denies pruritus, Denies rash Neurological: Reports weakness Psychiatric: Denies anxiety, Denies depression Endocrine: Reports fatigue Hematologic/Lymphatic: Reports as per HPI Past Medical History Past Medical History: Coronary Artery Disease (CAD), Chest Pain / Angina, Diabetes Mellitus, Hyperlipidemia, Hypertension Additional Past Medical History / Comment(s): NIDDM type II, neuropathy bilateral hands, colon cancer with resection/colostomy, hematuria with acute blood loss anemia with transfusion (cystoscopy normal per pt), bronchitis, History of Any Multi-Drug Resistant Organisms: None Reported Past Surgical History: Bowel Resection, Heart Catheterization, Orthopedic Surgery Additional Past Surgical History / Comment(s): Sigmoid resection/colostomy, colonoscopy, 2007 cardiac cath treated medically, cystoscopy, R shoulder rotator cuff surgery, bilateral cataract removals/lens implants. Past Anesthesia/Blood Transfusion Reactions: No Reported Reaction Additional Past Anesthesia/Blood Transfusion Reaction / Comm: Pt has received blood in past without reaction. Smoking Status: Former smoker - Past Family History Father History Unknown: Yes Family Medical History: No Reported History Additional Family Medical History / Comment(s): Father was killed during WWII Mother Family Medical History: No Reported History Additional Family Medical History / Comment(s): Mother in [facility] during [facility] Medications and Allergies Home Medications Medication Instructions Recorded Confirmed Type carvediloL [Coreg] 6.25 mg PO BID 12/22/18 12/02/19 History glipiZIDE [Glucotrol] 5 mg PO AC-TID 12/22/18 12/02/19 History hydrALAZINE HCL 50 mg PO AC-BID 12/22/18 12/02/19 History hydroCHLOROthiazide [Hydrodiuril] 25 mg PO DAILY 12/22/18 12/02/19 History metFORMIN HCL [Glucophage] 500 mg PO BID-W/MEALS #60 tab 12/26/18 12/02/19 Rx sitaGLIPtin [Januvia] 50 mg PO DAILY 12/02/19 12/02/19 History Aspirin EC [Ecotrin Low Dose] 81 mg PO DAILY 30 Days #30 12/06/19 Rx tablet. Cefuroxime Axetil [Ceftin] 500 mg PO BID 10 Days #20 tab 12/06/19 Rx Nitroglycerin Sl Tabs [Nitrostat] 0.4 mg SUBLINGUAL Q5M PRN tab 12/06/19 Rx Tamsulosin [Flomax] 0.4 mg PO DAILY cap.er.24h 12/06/19 Rx Allergies Allergy/AdvReac Type Severity Reaction Status Date / Time No Known Allergies Allergy Verified 12/02/19 12:05 Physical Exam Vitals: Vital Signs Temp Pulse Resp BP BP Pulse Ox 12/06/19 08:40 76 18 12/06/19 08:11 97.7 F 76 18 114/62 97 12/06/19 06:42 134/72 12/06/19 03:35 97.8 F 81 18 136/71 95 12/05/19 20:45 97.8 F 80 17 138/71 96 12/05/19 15:00 98 F 74 18 146/79 96 Intake and Output 12/05/19 12/06/19 12/06/19 22:59 06:59 14:59 Other: Voiding Method Toilet Toilet Toilet Urinal Urinal Urinal # Voids 1 - Constitutional General appearance: no acute distress - EENT Eyes: EOMI, PERRLA ENT: hearing grossly normal, normal oropharynx - Neck Neck: no lymphadenopathy Thyroid: bilateral: normal size - Respiratory Respiratory: bilateral: CTA - Cardiovascular Rhythm: regular Heart sounds: normal: S1, S2 - Gastrointestinal General gastrointestinal: normal bowel sounds, soft - Integumentary Integumentary: normal - Neurologic Neurologic: CNII-XII intact - Musculoskeletal Musculoskeletal: generalized weakness, strength equal bilaterally - Psychiatric Psychiatric: A&O x's 3, appropriate affect Results CBC & Chem 7: 12/06/19 05:42 12/06/19 05:42 Labs: Abnormal Lab Results - Last 24 Hours (Table) 12/05/19 12/05/19 12/05/19 Range/Units 11:33 17:07 21:00 WBC (3.8-10.6) k/uL RBC (4.30-5.90) m/uL Hgb (13.0-17.5) gm/dL Hct (39.0-53.0) % Plt Count (150-450) k/uL Neutrophils # (Manual) (1.3-7.7) k/uL Lymphocytes # (Manual) (1.0-4.8) k/uL Sodium (137-145) mmol/L BUN (9-20) mg/dL Glucose (74-99) mg/dL POC Glucose (mg/dL) 222 H 166 H 158 H (75-99) mg/dL Albumin (3.5-5.0) g/dL 12/06/19 12/06/19 12/06/19 Range/Units 05:42 05:42 06:47 WBC 2.3 L (3.8-10.6) k/uL RBC 3.35 L (4.30-5.90) m/uL Hgb 10.2 L (13.0-17.5) gm/dL Hct 31.5 L (39.0-53.0) % Plt Count 149 L (150-450) k/uL Neutrophils # (Manual) 0.97 L (1.3-7.7) k/uL Lymphocytes # (Manual) 0.83 L (1.0-4.8) k/uL Sodium 136 L (137-145) mmol/L BUN 36 H (9-20) mg/dL Glucose 162 H (74-99) mg/dL POC Glucose (mg/dL) 175 H (75-99) mg/dL Albumin 3.4 L (3.5-5.0) g/dL Microbiology - Last 24 Hours (Table) 12/04/19 21:22 Gram Stain - Preliminary Sputum Sputum Culture - Preliminary CT scan - chest: report reviewed US - abdomen: report reviewed Venous US: report reviewed Assessment and Plan (1) Pancytopenia Narrative/Plan: The patient is presenting with a pancytopenia with leukopenia most marked. Review of his labs shows WBC to be mostly in the low normal range with a level of 3.9 in 2018. He also had acute anemia due to hematuria in 2019. 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 Counts are in a safe range. This was discussed with the admitting service. Pancytopenia workup will be or dered. As WBC is above 500 and the patient is feeling better with no recurrent fever, it is reasonable to consider discharge. Patient will follow-up in the office with us in about 2 weeks - If pancytopenia workup is negative and counts recover back to baseline, which is in a safe range, and that would support the above-mentioned clinical impression. In that case the patient can be followed with observation. Current Visit: Yes Status: Acute Code(s): D61.818 - OTHER PANCYTOPENIA SNOMED Code(s): 221059329 Plan: Defer to the admitting service and other consultants for management of his other medical problems
[2019-12-06 12:01] LABS: Reticulocyte % 1.7 % (0.5-2.0)
[2019-12-06 12:56] LABS: Glucose,Whole Blood 222 mg/dL (75-99)
[2019-12-06 16:37] LABS: % Iron Saturation 28.06 (15.00-50.00); Protein, Total 6.3 g/dL (6.2-8.2)
[2019-12-06 16:46] LABS: Ferritin 233.3 ng/mL (22.0-322.0)
[2019-12-08 07:44] LABS: Free Kappa Lt Chain Qnt, Serum 5.48 mg/dL (0.33-1.94)
[2019-12-10 08:29] LABS: Methylmalonic Acid 0.38 umol/L (<0.40)
== END 2019-12-06 15:00 | disposition home or self-care (01) | DRG 690 ==
LOC: EC 11:47 → 3NCARDOBS 14:49 → OBSVTOIN 12-03 12:02
PROVIDERS: ADMIT Internal Medicine; ATTEND Internal Medicine
DX: N39.0 Urinary tract infection, site not specified (principal); D61.818 Other pancytopenia; E78.5 Hyperlipidemia, unspecified; E83.42 Hypomagnesemia; I10 Essential (primary) hypertension; I25.10 Atherosclerotic heart disease of native coronary artery without angina pectoris; I25.2 Old myocardial infarction; I45.10 Unspecified right bundle-branch block; K80.20 Calculus of gallbladder without cholecystitis without obstruction; R07.89 Other chest pain; E11.40 Type 2 diabetes mellitus with diabetic neuropathy, unspecified; N40.0 Benign prostatic hyperplasia without lower urinary tract symptoms; R79.89 Other specified abnormal findings of blood chemistry; Z20.828 Contact with and (suspected) exposure to other viral communicable diseases; Z79.82 Long term (current) use of aspirin; Z79.84 Long term (current) use of oral hypoglycemic drugs; Z79.899 Other long term (current) drug therapy; Z85.038 Personal history of other malignant neoplasm of large intestine; Z87.891 Personal history of nicotine dependence; Z93.3 Colostomy status; Z98.42 Cataract extraction status, left eye; Z98.41 Cataract extraction status, right eye; Z96.1 Presence of intraocular lens
CPT/HCPCS: 36415; 71046; 71275; 76705; 80053; 80061; 81001; 82607; 82728; 82747; 83540; 83550; 83690; 83735; 83880; 83883; 83921; 84165; 84484; 85025; 85045; 85379; 85610; 85730; 86038; 86334; 86431; 87070; 87205; 93005; 93970; 99285

== ENCOUNTER 2020-05-28 12:20 | Observation (INO) | payer MEDICARE ==
[2020-05-28 12:43] LABS: Glucose,Whole Blood 220 mg/dL (75-99)
[2020-05-28] MEDS ORDERED: NITROGLYCERIN OINT 1 INCH/GM PACKET TOPICAL STA (13:01)
[2020-05-28] MEDS ORDERED: ASPIRIN 81 MG PO STA (13:01)
--- NOTE | 2020-05-28 13:05 | ED ---
General Adult HPI - General Chief complaint: Weakness Stated complaint: high blood sugar Time Seen by Provider: 05/28/20 12:44 Source: patient, RN notes reviewed Mode of arrival: wheelchair Limitations: no limitations - History of Present Illness Initial comments: Patient is a pleasant 85-year-old male presenting to the emergency department with concerns regarding not feeling well. Patient states his blood sugar is running high, up to 240. Patient admits to having some chest discomfort and exertional dyspnea for the past couple of days. Patient feels somewhat weak all over. Patient is somewhat a poor historian. - Related Data Home Medications Medication Instructions Recorded Confirmed carvediloL [Coreg] 6.25 mg PO BID 12/22/18 05/28/20 glipiZIDE [Glucotrol] 5 mg PO AC-TID 12/22/18 05/28/20 hydrALAZINE HCL 50 mg PO AC-BID 12/22/18 05/28/20 hydroCHLOROthiazide [Hydrodiuril] 25 mg PO DAILY 12/22/18 05/28/20 sitaGLIPtin [Januvia] 50 mg PO DAILY 12/02/19 05/28/20 Previous Rx's Medication Instructions Recorded metFORMIN HCL [Glucophage] 500 mg PO BID-W/MEALS #60 tab 12/26/18 Aspirin EC [Ecotrin Low Dose] 81 mg PO DAILY 30 Days #30 12/06/19 tablet. Nitroglycerin Sl Tabs [Nitrostat] 0.4 mg SUBLINGUAL Q5M PRN tab 12/06/19 Tamsulosin [Flomax] 0.4 mg PO DAILY cap.er.24h 12/06/19 Allergies Allergy/AdvReac Type Severity Reaction Status Date / Time No Known Allergies Allergy Verified 05/28/20 13:21 Review of Systems ROS Statement: Those systems with pertinent positive or pertinent negative responses have been documented in the HPI. ROS Other: All systems not noted in ROS Statement are negative. Constitutional: Denies: fever Eyes: Denies: eye pain ENT: Denies: ear pain Respiratory: Reports: as per HPI. Denies: cough Cardiovascular: Reports: as per HPI, chest pain Endocrine: Reports: fatigue Gastrointestinal: Denies: abdominal pain Genitourinary: Denies: dysuria Musculoskeletal: Denies: back pain Skin: Denies: rash Neurological: Denies: confusion Past Medical History Past Medical History: Coronary Artery Disease (CAD), Chest Pain / Angina, Diabetes Mellitus, Hyperlipidemia, Hypertension Additional Past Medical History / Comment(s): NIDDM type II, neuropathy bilateral hands, colon cancer with resection/colostomy, hematuria with acute blood loss anemia with transfusion (cystoscopy normal per pt), bronchitis, History of Any Multi-Drug Resistant Organisms: None Reported Past Surgical History: Bowel Resection, Heart Catheterization, Orthopedic Surgery Additional Past Surgical History / Comment(s): Sigmoid resection/colostomy, colonoscopy, 2008 cardiac cath treated medically, cystoscopy, R shoulder rotator cuff surgery, bilateral cataract removals/lens implants. Past Anesthesia/Blood Transfusion Reactions: No Reported Reaction Additional Past Anesthesia/Blood Transfusion Reaction / Comment(s): Pt has received blood in past without reaction. Past Psychological History: No Psychological Hx Reported Smoking Status: Former smoker Past Alcohol Use History: None Reported Past Drug Use History: None Reported - Past Family History Father History Unknown: Yes Family Medical History: No Reported History Additional Family Medical History / Comment(s): Father was killed during WW Mother Family Medical History: No Reported History Additional Family Medical History / Comment(s): Mother in [facility] during General Exam Limitations: no limitations General appearance: alert, in no apparent distress Head exam: Present: normocephalic Eye exam: Present: normal appearance Respiratory exam: Present: normal lung sounds bilaterally Cardiovascular Exam: Present: regular rate, normal rhythm Expanded Peripheral pulses: 2+: Radial (R), Radial (L), Posterior Tibialis (R), Posterior Tibialis (L) GI/Abdominal exam: Present: soft. Absent: tenderness Extremities exam: Present: normal inspection. Absent: pedal edema, calf tenderness Neurological exam: Present: alert Psychiatric exam: Present: normal affect, normal mood Skin exam: Present: normal color Course Vital Signs 05/28/20 05/28/20 05/28/20 12:40 12:56 13:00 Temperature 98.1 F Pulse Rate 67 70 Respiratory 16 20 Rate Blood Pressure 113/67 121/63 O2 Sat by Pulse 96 98 98 Oximetry EKG Findings - EKG Comments: EKG Findings:: Sinus rhythm with rate of 65. For screening AV block RI of 268. QRS 1:30. QTC 452. QTC 470. Right axis. Right bundle branch block. No acute ST change. Medical Decision Making - Medical Decision Making Patient reevaluated and updated. Dr. Hanson has been paged for admission for his patient. Case was discussed with Dr. Hanson, who will admit his patient. He is aware of pending computed tomography scan. - Lab Data Result diagrams: 05/28/20 13:20 05/28/20 13:20 Lab Results 05/28/20 05/28/20 05/28/20 Range/Units 12:41 13:20 13:20 WBC 4.4 (3.8-10.6) k/uL RBC 3.47 L (4.30-5.90) m/uL Hgb 10.9 L (13.0-17.5) gm/dL Hct 31.7 L (39.0-53.0) % MCV 91.5 (80.0-100.0) fL MCH 31.3 (25.0-35.0) pg MCHC 34.2 (31.0-37.0) g/dL RDW 13.8 (11.5-15.5) % Plt Count 150 (150-450) k/uL MPV 9.0 Neutrophils % 75 % Lymphocytes % 12 % Monocytes % 9 % Eosinophils % 0 % Basophils % 1 % Neutrophils # 3.3 (1.3-7.7) k/uL Lymphocytes # 0.5 L (1.0-4.8) k/uL Monocytes # 0.4 (0-1.0) k/uL Eosinophils # 0.0 (0-0.7) k/uL Basophils # 0.0 (0-0.2) k/uL PT 11.0 (9.0-12.0) sec INR 1.0 (<1.2) APTT 25.1 (22.0-30.0) sec D-Dimer 2.20 H (<0.60) mg/L FEU Sodium (137-145) mmol/L Potassium (3.5-5.1) mmol/L Chloride (98-107) mmol/L Carbon Dioxide (22-30) mmol/L Anion Gap mmol/L BUN (9-20) mg/dL Creatinine (0.66-1.25) mg/dL Est GFR (CKD-EPI)AfAm (>60 ml/min/1.73 sqM) Est GFR (CKD-EPI)NonAf (>60 ml/min/1.73 sqM) Glucose (74-99) mg/dL POC Glucose (mg/dL) 220 H (75-99) mg/dL POC Glu Editorial Assistant ID Thea Richardson Calcium (8.4-10.2) mg/dL Magnesium (1.6-2.3) mg/dL Total Bilirubin (0.2-1.3) mg/dL AST (17-59) U/L ALT (4-49) U/L Alkaline Phosphatase (38-126) U/L Troponin I (0.000-0.034) ng/mL NT-Pro-B Natriuret Pep pg/mL Total Protein (6.3-8.2) g/dL Albumin (3.5-5.0) g/dL 05/28/20 05/28/20 05/28/20 Range/Units 13:20 13:20 13:20 WBC (3.8-10.6) k/uL RBC (4.30-5.90) m/uL Hgb (13.0-17.5) gm/dL Hct (39.0-53.0) % MCV (80.0-100.0) fL MCH (25.0-35.0) pg MCHC (31.0-37.0) g/dL RDW (11.5-15.5) % Plt Count (150-450) k/uL MPV Neutrophils % % Lymphocytes % % Monocytes % % Eosinophils % % Basophils % % Neutrophils # (1.3-7.7) k/uL Lymphocytes # (1.0-4.8) k/uL Monocytes # (0-1.0) k/uL Eosinophils # (0-0.7) k/uL Basophils # (0-0.2) k/uL PT (9.0-12.0) sec INR (<1.2) APTT (22.0-30.0) sec D-Dimer (<0.60) mg/L FEU Sodium 131 L (137-145) mmol/L Potassium 4.1 (3.5-5.1) mmol/L Chloride 95 L (98-107) mmol/L Carbon Dioxide 25 (22-30) mmol/L Anion Gap 11 mmol/L BUN 39 H (9-20) mg/dL Creatinine 1.50 H (0.66-1.25) mg/dL Est GFR (CKD-EPI)AfAm 49 (>60 ml/min/1.73 sqM) Est GFR (CKD-EPI)NonAf 42 (>60 ml/min/1.73 sqM) Glucose 216 H (74-99) mg/dL POC Glucose (mg/dL) (75-99) mg/dL POC Glu Editorial Assistant ID Calcium 8.7 (8.4-10.2) mg/dL Magnesium 1.7 (1.6-2.3) mg/dL Total Bilirubin 0.8 (0.2-1.3) mg/dL AST 29 (17-59) U/L ALT 16 (4-49) U/L Alkaline Phosphatase 74 (38-126) U/L Troponin I <0.012 (0.000-0.034) ng/mL NT-Pro-B Natriuret Pep 1840 pg/mL Total Protein 7.1 (6.3-8.2) g/dL Albumin 3.7 (3.5-5.0) g/dL - Radiology Data Radiology results: image reviewed (Chest x-ray reveals no acute process) Disposition Clinical Impression: Renal insufficiency, Chest pain Disposition: ADMITTED IP TO THIS HOSP Is patient prescribed a controlled substance at d/c from ED?: No Decision Time: 14:38
--- NOTE | 2020-05-28 13:45 | XR ---
EXAMINATION TYPE: XR chest 2V DATE OF EXAM: 05/28/2020 COMPARISON: Chest CTA December 02, 2019. Chest x-ray December 04, 2019 HISTORY: Chest pain. TECHNIQUE: Frontal and lateral views of the chest are obtained. FINDINGS: There is mild chronic parenchymal change without suspicious focal air space opacity, pleur al effusion, or pneumothorax seen. The cardiac silhouette size is stable and upper limits of normal. The osseous structures are intact. IMPRESSION: Chronic changes without acute pulmonary process.
[2020-05-28 13:49] LABS: Basophils % (A) 1 %; Eosinophils % (A) 0 %; HCT 31.7 % (39.0-53.0); HGB 10.9 gm/dL (13.0-17.5); Lymphocytes # (A) 0.5 k/uL (1.0-4.8); Lymphocytes % (A) 12 %; MCH 31.3 pg (25.0-35.0); MCHC 34.2 g/dL (31.0-37.0); MCV 91.5 fL (80.0-100.0); Monocytes # (A) 0.4 k/uL (0-1.0); Monocytes % (A) 9 %; Neutrophils # (A) 3.3 k/uL (1.3-7.7); Neutrophils % (A) 75 %; Platelet Count 150 k/uL (150-450); RBC 3.47 m/uL (4.30-5.90); RDW 13.8 % (11.5-15.5); WBC 4.4 k/uL (3.8-10.6)
[2020-05-28 14:01] LABS: Albumin 3.7 g/dL (3.5-5.0); Calcium 8.7 mg/dL (8.4-10.2); Magnesium 1.7 mg/dL (1.6-2.3); Potassium 4.1 mmol/L (3.5-5.1); Total Bilirubin 0.8 mg/dL (0.2-1.3); Total Protein 7.1 g/dL (6.3-8.2)
[2020-05-28] MEDS ORDERED: SODIUM CHLORIDE 0.9% 1,000 ML IV STA (14:02)
[2020-05-28] MEDS ORDERED: SODIUM CHLORIDE 0.9% 500 ML 500 ML IV STA (14:02)
[2020-05-28 14:11] LABS: Partial Thromboplastin Time 25.1 sec (22.0-30.0)
[2020-05-28 14:13] LABS: D-Dimer 2.2 mg/L FEU (<0.60)
[2020-05-28] MEDS ORDERED: NITROGLYCERIN SL TABS 0.4 MG TAB SUBLINGUAL PRN (14:39)
[2020-05-28] MEDS: SODIUM CHLORIDE 0.9% 1,000 ML IV SCH (15:12)
--- NOTE | 2020-05-28 15:28 | CT ---
EXAMINATION TYPE: CT angio chest DATE OF EXAM: 05/28/2020 COMPARISON: December 02, 2019 HISTORY: CP, dyspnea, elevated d-dimer. Pt labs GFR-42, Cr-1.5, spoke to Dr. Christensen, who stated he herminio l hydrate patient. CT DLP: 471.1 mGycm Automated exposure control for dose reduction was used. CONTRAST: Performed with IV Contrast, patient injected with 80 mL of Isovue 370. There are 3-D post processed images. The lungs are clear of consolidation. There is no evidence of a pulmonary mass. There is minimal reti cular interstitial linear density in the lower lung randall. There is no pleural effusion. There is no pericardial effusion. Thoracic aorta is atheromatous. Heart size is normal. There is normal contrast opacification of the pulmonary arteries. There are no filling defects. There is no mediastinal adenopathy. There are no hilar masses. Thoracic vertebra appear intact. There is no compression fracture. IMPRESSION: No evidence of pulmonary embolism. Atheromatous aorta. No adverse change compared to old exam.
[2020-05-28 18:18] LABS: Glucose,Whole Blood 151 mg/dL (75-99)
[2020-05-28] MEDS: NITROGLYCERIN OINT 1 INCH/GM PACKET TOPICAL SCH (18:57)
[2020-05-28 19:54] LABS: Glucose,Whole Blood 161 mg/dL (75-99)
[2020-05-28] MEDS: INSULIN ASPART (NovoLOG) 100 UNIT/ML VIAL SQ SCH (22:13)
[2020-05-28] MEDS: carvediloL 6.25 MG TAB PO SCH (22:13)
[2020-05-29] MEDS: NITROGLYCERIN OINT 1 INCH/GM PACKET TOPICAL SCH ×2 (00:01→07:19)
[2020-05-29] MEDS: SODIUM CHLORIDE 0.9% 1,000 ML IV SCH ×3 (02:52→22:25)
[2020-05-29 07:13] LABS: Glucose,Whole Blood 156 mg/dL (75-99)
[2020-05-29] MEDS: hydrALAZINE HCL 50 MG TAB PO SCH ×2 (08:33→17:25)
[2020-05-29] MEDS: INSULIN ASPART (NovoLOG) 100 UNIT/ML VIAL SQ SCH ×4 (08:33→22:25)
--- NOTE | 2020-05-29 08:33 | P.CRDCN ---
History of Present Illness Consult date: 05/29/20 Requesting physician: Raffi Hanson Reason for Consult (text): chest pain Chief complaint: elevated blood sugar, chest pain History of present illness: This is a pleasant 85-year-old gentleman who follows with Dr. Brooks in the office. Past medical history includes nonobstructive CAD, hypertension, hyperlipidemia, prior tobacco abuse. Upon initial questioning patient verbalizes coming to the emergency department due to elevated blood sugars which have recently been running around 240 and he usually gets readings between 130 and 170. Upon further questioning he did admit to having some chest discomfort, intermittent, over the last week. The pain would come and go and not related to physical activity. He does not feel that there are any aggravating or relieving factors. He does complain also of aching all over. He does suffer from arthritis. He's also been having some occasional dyspnea on exertion however he has not been very active at home. Recent cardiac workup includes a nuclear stress test from July 2019 which showed a fixed inferior wall defect likely consistent with soft tissue attenuation which had been seen on prior scans as well and an echocardiogram performed in September 2019 which showed ejection fraction of 55%, indeterminate diastolic function, mild MR and no significant aortic stenosis or regurgitation. EKG on admission showed sinus rhythm with sinus arrhythmia and first-degree AV block with a right bundle branch block and nonspecific ST-T wave abnormalities with no significant change from previous. Chest x-ray showed chronic changes without acute pulmonary process. D-dimer was elevated and he underwent a CTA of the chest which showed no evidence of pulmonary embolism, atheromatous aorta, no adverse change compared to old exam. Laboratory values revealed a hemoglobin of 10.9, d-dimer 2.2, sodium 131, potassium 4.1, BUN 39 and creatinine of 1.5 which are up from his baseline. Troponin levels have been negative 3 and NT proBNP was 1840 which in November was 1750. Home medications currently include Januvia, metformin, hydrochlorothiazide 25 mg by mouth daily, hydralazine 50 mg by mouth twice a day, glipizide, carvedilol 6.25 mg by mouth twice a day, Flomax and aspirin 81 mg by mouth daily. Upon examination the patient is resting comfortably in bed. He currently denies any complaints of chest discomfort and he feels his breathing is good right now. He's had some complaints of palpitations, brief, occasional and unrelated to other symptoms. He denies any edema, orthopnea or PND. Past Medical History Past Medical History: Coronary Artery Disease (CAD), Chest Pain / Angina, Diabetes Mellitus, Hyperlipidemia, Hypertension Additional Past Medical History / Comment(s): NIDDM type II, neuropathy bilateral hands, colon cancer with resection/colostomy, hematuria with acute blood loss anemia with transfusion (cystoscopy normal per pt), bronchitis, History of Any Multi-Drug Resistant Organisms: None Reported Past Surgical History: Bowel Resection, Heart Catheterization, Orthopedic Surgery Additional Past Surgical History / Comment(s): Sigmoid resection/colostomy, colonoscopy, 2008 cardiac cath treated medically, cystoscopy, R shoulder rotator cuff surgery, bilateral cataract removals/lens implants. Past Anesthesia/Blood Transfusion Reactions: No Reported Reaction Additional Past Anesthesia/Blood Transfusion Reaction / Comment(s): Pt has received blood in past without reaction. Past Psychological History: No Psychological Hx Reported Additional Psychological History / Comment(s): Pt resides with his spouse. Pt came from [facility] to [facility] in 1961. He uses a cane to ambulate. He drives. Smoking Status: Never smoker Past Alcohol Use History: None Reported Additional Past Alcohol Use History / Comment(s): Pt started smoking in 1955 and quit in 1985. Past Drug Use History: None Reported - Past Family History Father History Unknown: Yes Family Medical History: No Reported History Additional Family Medical History / Comment(s): Father was killed during WW Mother Family Medical History: No Reported History Additional Family Medical History / Comment(s): Mother in [facility] during WWII Medications and Allergies Home Medications Medication Instructions Recorded Confirmed Type carvediloL [Coreg] 6.25 mg PO BID 12/22/18 05/28/20 History glipiZIDE [Glucotrol] 5 mg PO AC-TID 12/22/18 05/28/20 History hydrALAZINE HCL 50 mg PO AC-BID 12/22/18 05/28/20 History hydroCHLOROthiazide [Hydrodiuril] 25 mg PO DAILY 12/22/18 05/28/20 History metFORMIN HCL [Glucophage] 500 mg PO BID-W/MEALS #60 tab 12/26/18 05/28/20 Rx sitaGLIPtin [Januvia] 50 mg PO DAILY 12/02/19 05/28/20 History Aspirin EC [Ecotrin Low Dose] 81 mg PO DAILY 30 Days #30 12/06/19 05/28/20 Rx tablet. Nitroglycerin Sl Tabs [Nitrostat] 0.4 mg SUBLINGUAL Q5M PRN tab 12/06/19 05/28/20 Rx Tamsulosin [Flomax] 0.4 mg PO DAILY cap.er.24h 12/06/19 05/28/20 Rx Allergies Allergy/AdvReac Type Severity Reaction Status Date / Time No Known Allergies Allergy Verified 05/28/20 13:21 Physical Exam Vitals: Vital Signs Temp Pulse Pulse Resp BP BP Pulse Ox 05/29/20 07:00 99.0 F 77 19 133/55 95 05/29/20 02:00 98.6 F 79 16 129/69 96 05/28/20 20:00 98.0 F 61 18 162/65 98 05/28/20 16:07 97.9 F 62 18 146/56 95 05/28/20 16:00 98.0 F 68 20 140/78 98 05/28/20 13:00 70 20 121/63 98 05/28/20 12:56 98 05/28/20 12:40 98.1 F 67 71 20 113/67 96 Intake and Output 05/28/20 05/29/20 05/29/20 22:59 06:59 14:59 Other: Voiding Method Toilet # Voids 2 2 Weight 90.718 kg PHYSICAL EXAMINATION: This is a 85-year-old male in no apparent distress at the time of my examination. VITAL SIGNS: Blood pressure 140/78, heart rate 68, respirations 20, temp 98.0F. Patient is 98 % on room air. HEENT: Head is atraumatic, normocephalic. Pupils are equal, round. Sclerae ani cteric. Conjunctivae are clear. Mucous membranes of the mouth are moist. Neck is supple. There is no elevated jugular venous pressure. No carotid bruit is heard. CHEST EXAMINATION: Lungs reveal coarse expiratory wheezing throughout. Respirations even and nonlabored. HEART EXAMINATION: Heart regular, positive S1 and S2. No S3. No S4. No clicks, rubs or murmurs. ABDOMEN: Soft, nontender. Bowel sounds are heard. No organomegaly noted. EXTREMITIES: 2+ peripheral pulses with no evidence of peripheral edema and no calf tenderness noted. NEUROLOGIC EXAMINATION: Patient is awake, alert and oriented x3. Results 05/29/20 10:38 05/28/20 13:20 Cardiac Enzymes 05/28/20 05/28/20 05/28/20 Range/Units 13:20 13:20 16:50 AST 29 (17-59) U/L Troponin I <0.012 <0.012 (0.000-0.034) ng/mL 05/28/20 Range/Units 19:31 AST (17-59) U/L Troponin I <0.012 (0.000-0.034) ng/mL Coagulation 05/28/20 Range/Units 13:20 PT 11.0 (9.0-12.0) sec APTT 25.1 (22.0-30.0) sec CBC 05/28/20 Range/Units 13:20 WBC 4.4 (3.8-10.6) k/uL RBC 3.47 L (4.30-5.90) m/uL Hgb 10.9 L (13.0-17.5) gm/dL Hct 31.7 L (39.0-53.0) % Plt Count 150 (150-450) k/uL Comprehensive Metabolic Panel 05/28/20 Range/Units 13:20 Sodium 131 L (137-145) mmol/L Potassium 4.1 (3.5-5.1) mmol/L Chloride 95 L (98-107) mmol/L Carbon Dioxide 25 (22-30) mmol/L BUN 39 H (9-20) mg/dL Creatinine 1.50 H (0.66-1.25) mg/dL Glucose 216 H (74-99) mg/dL Calcium 8.7 (8.4-10.2) mg/dL AST 29 (17-59) U/L ALT 16 (4-49) U/L Alkaline Phosphatase 74 (38-126) U/L Total Protein 7.1 (6.3-8.2) g/dL Albumin 3.7 (3.5-5.0) g/dL Current Medications Generic Name Dose Route Start Last Admin Trade Name Freq PRN Reason Stop Dose Admin Aspirin 325 mg 05/29/20 09:00 Aspirin 325 Mg Tab PO DAILY MARTIN Carvedilol 6.25 mg 05/28/20 21:00 05/28/20 22:13 Carvedilol 6.25 Mg Tab PO 6.25 mg BID MARTIN Administration Glipizide 5 mg 05/29/20 07:30 Glipizide 5 Mg Tab PO AC-TID MARTIN Hydralazine HCl 50 mg 05/29/20 07:30 Hydralazine Hcl 50 Mg Tab PO AC-BID MARTIN Hydrochlorothiazide 25 mg 05/29/20 09:00 Hydrochlorothiazide 25 Mg Tab PO DAILY MARTIN Sodium Chloride 1,000 mls @ 100 mls/hr 05/28/20 14:45 05/29/20 02:52 Saline 0.9% IV 100 mls/hr .Q10H MARTIN Administration Insulin Aspart 0 unit 05/28/20 21:00 05/28/20 22:13 Insulin Aspart (Novolog) 100 Unit/Ml Vial SQ 1 unit ACHS MARTIN Administration Protocol Linagliptin 5 mg 05/29/20 09:00 Linagliptin 5 Mg Tablet PO DAILY MARTIN Nitroglycerin 0.4 mg 05/28/20 14:39 Nitroglycerin Sl Tabs 0.4 Mg Tab SUBLINGUAL Q5M PRN Chest Pain Nitroglycerin 1 inch 05/28/20 18:00 05/29/20 07:19 Nitroglycerin Oint 1 Inch/Gm Packet TOPICAL Not Given Q6HR MARTIN Tamsulosin HCl 0.4 mg 05/29/20 09:00 Tamsulosin 0.4 Mg Cap.Er.24h PO DAILY MARTIN Intake and Output 05/28/20 05/29/20 05/29/20 22:59 06:59 14:59 Other: Voiding Method Toilet # Voids 2 2 Weight 90.718 kg 05/28/20 13:20 05/28/20 13:20 Assessment and Plan Assessment: #1 symptoms of chest pain, atypical, an acute coronary event has been ruled out, troponins have been negative 3. #2 history of nonobstructive CAD noted on cardiac cath from 2007 #3 hypertension #4 hyperlipidemia #5 acute kidney injury #6 diabetes mellitus type 2 #7 symptoms of shortness of breath with NT proBNP 1840, patient appears to be euvolemic. Plan: From cardiology perspective we will stop hydrochlorothiazide. We will add isosorbide 30 mg by mouth daily. We'll continue to monitor the patient and depending on his symptoms further recommendations will be made. [employer] note has been reviewed, I agree with a documented findings and plan of care. Patient was seen and examined.
[2020-05-29] MEDS: TAMSULOSIN 0.4 MG CAP.ER.24H PO SCH (08:34)
[2020-05-29] MEDS ORDERED: ASPIRIN 325 MG TAB PO SCH (09:00)
[2020-05-29] MEDS ORDERED: hydroCHLOROthiazide 25 MG TAB PO SCH (09:00)
[2020-05-29 09:50] LABS: Chol/HDL Ratio 4.62
[2020-05-29] MEDS: glipiZIDE 5 MG TAB PO SCH ×3 (10:15→17:25)
[2020-05-29] MEDS: LINAGLIPTIN 5 MG TABLET PO SCH (10:15)
[2020-05-29] MEDS: carvediloL 6.25 MG TAB PO SCH ×2 (10:16→22:25)
[2020-05-29 10:58] LABS: Basophils % (A) 1 %; Eosinophils % (A) 1 %; HCT 32.3 % (39.0-53.0); HGB 10.7 gm/dL (13.0-17.5); Lymphocytes # (A) 0.5 k/uL (1.0-4.8); Lymphocytes % (A) 17 %; MCH 30.3 pg (25.0-35.0); MCHC 33.3 g/dL (31.0-37.0); MCV 91.1 fL (80.0-100.0); Mean Platelet Volume 8.8; Monocytes # (A) 0.3 k/uL (0-1.0); Monocytes % (A) 13 %; Neutrophils # (A) 1.8 k/uL (1.3-7.7); Neutrophils % (A) 66 %; Platelet Count 149 k/uL (150-450); RBC 3.54 m/uL (4.30-5.90); RDW 13.8 % (11.5-15.5); WBC 2.7 k/uL (3.8-10.6)
[2020-05-29 11:44] LABS: Glucose,Whole Blood 190 mg/dL (75-99)
--- NOTE | 2020-05-29 12:14 | P.HPIM ---
History of Present Illness H&P Date: 05/29/20 This is an 85-year-old male patient who presented to ER with complaints of chest discomfort. Patient reports that he was having feelings of overall not feeling well with elevated blood sugar and intermittent chest discomfort with shortness of breath over the past couple days. Patient also complains of generalized weakness but denies any acute illness. patient has past medical history of coronary artery disease, diabetes mellitus, hyperlipidemia, essential hypertension and previous heart cath. Chest x-ray performed in ER showing chronic changes without acute pulmonary process. D-dimer was elevated at 2.20. CTA performed showing no evidence of pulmonary embolism. COVID 19 negative. Troponin negative. Creatinine elevated at 1.50 and bun 39. At that time cardiology services will be consulted. Normal saline at 100. Repeat labs ordered for a.m. at this time patient is resting comfortably in bed denies any chest pain or shortness of breath. Denies nausea vomiting or diarrhea. Denies any urinary burning or frequency Review of Systems Please refer to HPI otherwise unremarkable Past Medical History Past Medical History: Coronary Artery Disease (CAD), Chest Pain / Angina, Diabetes Mellitus, Hyperlipidemia, Hypertension Additional Past Medical History / Comment(s): NIDDM type II, neuropathy bilateral hands, colon cancer with resection/colostomy, hematuria with acute blood loss anemia with transfusion (cystoscopy normal per pt), bronchitis, History of Any Multi-Drug Resistant Organisms: None Reported Past Surgical History: Bowel Resection, Heart Catheterization, Orthopedic Surgery Additional Past Surgical History / Comment(s): Sigmoid resection/colostomy, colonoscopy, 2008 cardiac cath treated medically, cystoscopy, R shoulder rotator cuff surgery, bilateral cataract removals/lens implants. Past Anesthesia/Blood Transfusion Reactions: No Reported Reaction Additional Past Anesthesia/Blood Transfusion Reaction / Comment(s): Pt has received blood in past without reaction. Past Psychological History: No Psychological Hx Reported Additional Psychological History / Comment(s): Pt resides with his spouse. Pt came from [facility] to [facility] in [facility]. He uses a cane to ambulate. He drives. Smoking Status: Never smoker Past Alcohol Use History: None Reported Additional Past Alcohol Use History / Comment(s): Pt started smoking in 1955 and quit in 1985. Past Drug Use History: None Reported - Past Family History Father History Unknown: Yes Family Medical History: No Reported History Additional Family Medical History / Comment(s): Father was killed during WWII Mother Family Medical History: No Reported History Additional Family Medical History / Comment(s): Mother in [facility] during [place] Medications and Allergies Home Medications Medication Instructions Recorded Confirmed Type carvediloL [Coreg] 6.25 mg PO BID 12/22/18 05/28/20 History glipiZIDE [Glucotrol] 5 mg PO AC-TID 12/22/18 05/28/20 History hydrALAZINE HCL 50 mg PO AC-BID 12/22/18 05/28/20 History hydroCHLOROthiazide [Hydrodiuril] 25 mg PO DAILY 12/22/18 05/28/20 History metFORMIN HCL [Glucophage] 500 mg PO BID-W/MEALS #60 tab 12/26/18 05/28/20 Rx sitaGLIPtin [Januvia] 50 mg PO DAILY 12/02/19 05/28/20 History Aspirin EC [Ecotrin Low Dose] 81 mg PO DAILY 30 Days #30 12/06/19 05/28/20 Rx tablet. Nitroglycerin Sl Tabs [Nitrostat] 0.4 mg SUBLINGUAL Q5M PRN tab 12/06/19 05/28/20 Rx Tamsulosin [Flomax] 0.4 mg PO DAILY cap.er.24h 12/06/19 05/28/20 Rx Allergies Allergy/AdvReac Type Severity Reaction Status Date / Time No Known Allergies Allergy Verified 05/28/20 13:21 Physical Exam Vitals: Vital Signs Temp Pulse Pulse Resp BP BP Pulse Ox 05/29/20 07:00 99.0 F 77 19 133/55 95 05/29/20 02:00 98.6 F 79 16 129/69 96 05/28/20 20:00 98.0 F 61 18 162/65 98 05/28/20 16:07 97.9 F 62 18 146/56 95 05/28/20 16:00 98.0 F 68 20 140/78 98 05/28/20 13:00 70 20 121/63 98 05/28/20 12:56 98 05/28/20 12:40 98.1 F 67 71 20 113/67 96 Intake and Output 05/28/20 05/29/20 05/29/20 22:59 06:59 14:59 Other: Voiding Method Toilet # Voids 2 2 Weight 90.718 kg Head normocephalic Neck supple Lungs clear to auscultation bilaterally no wheezing or crackles Heart regular rate and rhythm S1-S2, no rub or gallop Abdomen is soft nontender nondistended positive bowel sounds no hepatos plenomegaly Extremities no edema Neuro alert and orientated to 3 Results CBC & Chem 7: 05/29/20 10:38 05/28/20 13:20 Labs: Abnormal Lab Results - Last 24 Hours (Table) 05/28/20 05/28/20 05/28/20 Range/Units 12:41 13:20 13:20 WBC (3.8-10.6) k/uL RBC 3.47 L (4.30-5.90) m/uL Hgb 10.9 L (13.0-17.5) gm/dL Hct 31.7 L (39.0-53.0) % Plt Count (150-450) k/uL Lymphocytes # 0.5 L (1.0-4.8) k/uL D-Dimer 2.20 H (<0.60) mg/L FEU Sodium (137-145) mmol/L Chloride (98-107) mmol/L BUN (9-20) mg/dL Creatinine (0.66-1.25) mg/dL Glucose (74-99) mg/dL POC Glucose (mg/dL) 220 H (75-99) mg/dL Triglycerides (0.0-149.0) mg/dL HDL Cholesterol (40.0-60.0) mg/dL 05/28/20 05/28/20 05/28/20 Range/Units 13:20 13:20 18:07 WBC (3.8-10.6) k/uL RBC (4.30-5.90) m/uL Hgb (13.0-17.5) gm/dL Hct (39.0-53.0) % Plt Count (150-450) k/uL Lymphocytes # (1.0-4.8) k/uL D-Dimer (<0.60) mg/L FEU Sodium 131 L (137-145) mmol/L Chloride 95 L (98-107) mmol/L BUN 39 H (9-20) mg/dL Creatinine 1.50 H (0.66-1.25) mg/dL Glucose 216 H (74-99) mg/dL POC Glucose (mg/dL) 151 H (75-99) mg/dL Triglycerides 170.0 H (0.0-149.0) mg/dL HDL Cholesterol 34.0 L (40.0-60.0) mg/dL 05/28/20 05/29/20 05/29/20 Range/Units 19:49 07:12 10:38 WBC 2.7 L (3.8-10.6) k/uL RBC 3.54 L (4.30-5.90) m/uL Hgb 10.7 L (13.0-17.5) gm/dL Hct 32.3 L (39.0-53.0) % Plt Count 149 L (150-450) k/uL Lymphocytes # 0.5 L (1.0-4.8) k/uL D-Dimer (<0.60) mg/L FEU Sodium (137-145) mmol/L Chloride (98-107) mmol/L BUN (9-20) mg/dL Creatinine (0.66-1.25) mg/dL Glucose (74-99) mg/dL POC Glucose (mg/dL) 161 H 156 H (75-99) mg/dL Triglycerides (0.0-149.0) mg/dL HDL Cholesterol (40.0-60.0) mg/dL 05/29/20 Range/Units 11:42 WBC (3.8-10.6) k/uL RBC (4.30-5.90) m/uL Hgb (13.0-17.5) gm/dL Hct (39.0-53.0) % Plt Count (150-450) k/uL Lymphocytes # (1.0-4.8) k/uL D-Dimer (<0.60) mg/L FEU Sodium (137-145) mmol/L Chloride (98-107) mmol/L BUN (9-20) mg/dL Creatinine (0.66-1.25) mg/dL Glucose (74-99) mg/dL POC Glucose (mg/dL) 190 H (75-99) mg/dL Triglycerides (0.0-149.0) mg/dL HDL Cholesterol (40.0-60.0) mg/dL Thrombosis Risk Factor Assmnt - Choose All That Apply Each Risk Factor Represents 3 Points: Age 75 years or older Thrombosis Risk Factor Assessment Total Risk Factor Score: 3 Thrombosis Risk Factor Assessment Level: Moderate Risk Assessment and Plan Assessment: 1. Chest pain. Cardiology services consulted. Medications adjusted Imdur added per cardiology. troponins negative. Elevated d-dimer. CTA was negative. 2. Renal insufficiency. Creatinine elevated at 1.50 bun 29. Normal saline at 100. Repeat labs ordered. 3. Generalized weakness. Urinary analysis ordered. PT OT consulted 4. Diabetes mellitus type 2. Home medications reordered hemoglobin A1c ordered. Sliding scale insulin added 5. Essential hypertension. Medications adjusted per cardiology DVT prophylaxis Lovenox. GI prophylaxis Protonix Cardiology services following. Medications adjusted Repeat labs ordered Time with Patient: Greater than 30 (Greater than 60% of the total time spent in counseling and coordination of care.)
[2020-05-29 12:42] LABS: ALT 20 U/L (4-49); AST 37 U/L (17-59); African American GFR (CKD) 65 (>60 ml/min/1.73 sqM); Albumin 3.8 g/dL (3.5-5.0); Albumin/Globulin Ratio 1.1; Alkaline Phosphatase 74 U/L (38-126); Anion Gap 11 mmol/L; Blood Urea Nitrogen 33 mg/dL (9-20); Calcium 8.9 mg/dL (8.4-10.2); Carbon Dioxide 25 mmol/L (22-30); Chloride 96 mmol/L (98-107); Globulin 3.5 g/dL; Glucose 187 mg/dL (74-99); Non-African American GFR(CKD) 57 (>60 ml/min/1.73 sqM); Potassium 3.9 mmol/L (3.5-5.1); Sodium 132 mmol/L (137-145); Total Bilirubin 0.7 mg/dL (0.2-1.3); Total Protein 7.3 g/dL (6.3-8.2)
--- NOTE | 2020-05-29 13:22 | P.HPADDEND ---
H&P Addendum H&P Addendum Date: 05/29/20 Aracelis Melchor, is an 85-year-old male who presented to [facility] emergency room with a chief complaint of chest pain he was evaluated in emergency room vital exam on presentation revealed a temperature of 98.1 pulse 67 respiration 16 blood pressure 113/67 pulse ox 96% on room air his white blood count was 4.4 hemoglobin 10.9 platelet count 150 d-dimer 2.2 sodium 131 potassium 4.1 chloride 95 BUN 39 creatinine 1.5 glucose 216 coronavirus PCR was negative, chest x-ray on presentation to emergency room revealed chronic changes without acute pulmonary process, CT angiogram of the chest revealed no evidence of pulmonary embolism, EKG revealed sinus rhythm with right bundle branch block and first-degree AV block troponin level was 0.012 patient was admitted to telemetry floor cardiology consultation was requested. On physical exam patient is alert and oriented 3 in no apparent distress Vital exam reveals a temperature of 98 pulse 68 respiration 20 blood pressure 140/78 pulse ox 98% on room air HEENT head normocephalic and atraumatic Neck is supple no JVD no goiter no lymphadenopathy Chest exam is clear to auscultation no crackles no wheezing Cardiac exam reveals regular heart sounds S1 and S2 no gallops no murmurs nor rubs Abdomen is soft nontender no organomegaly with normal bowel sounds Extremity exam reveals 2+ edema no cyanosis or clubbing Neurological examination reveals no gross focal deficit Assessment and plan: Full H&P dictated by my nurse practitioner Ainsley Hunt 1. Chest pain. Cardiology services consulted. Medications adjusted Imdur added per cardiology. troponins negative. Elevated d-dimer. CTA was negative. 2. Renal insufficiency. Creatinine elevated at 1.50 bun 29. Normal saline at 100. Repeat labs ordered. 3. Generalized weakness. Urinary analysis ordered. PT OT consulted 4. Diabetes mellitus type 2. Home medications reordered hemoglobin A1c ordered. Sliding scale insulin added 5. Essential hypertension. Will continue to monitor will follow in a.m. possible discharge to home tomorrow if stable
[2020-05-29 16:49] LABS: Glucose,Whole Blood 141 mg/dL (75-99)
[2020-05-29 17:39] LABS: Appearance,Urine Cloudy (Clear); Bacteria,Urine Many /hpf; Bilirubin,Urine Negative (Negative); Blood,Urine Negative (Negative); Color,Urine Yellow; Glucose,Urine (UA) Negative (Negative); Ketones,Urine Negative (Negative); Leukocyte Esterase,Urine Moderate (Negative); Mucus,Urine Occasional /hpf; Nitrite,Urine Negative (Negative); Protein,Urine Trace (Negative); RBC,Urine 2 /hpf (0-5); Specific Gravity,Urine 1.018 (1.001-1.035); Squamous Epithelial Cell,Urine 1 /hpf (0-4); Urobilinogen,Urine <2.0 mg/dL (<2.0); WBC,Urine 15 /hpf (0-5)
[2020-05-29 20:11] LABS: Glucose,Whole Blood 198 mg/dL (75-99)
[2020-05-30 06:00] LABS: ALT 18 U/L (4-49); AST 29 U/L (17-59); African American GFR (CKD) 69 (>60 ml/min/1.73 sqM); Albumin 3.1 g/dL (3.5-5.0); Alkaline Phosphatase 67 U/L (38-126); Anion Gap 12 mmol/L; Blood Urea Nitrogen 31 mg/dL (9-20); Calcium 8.4 mg/dL (8.4-10.2); Carbon Dioxide 26 mmol/L (22-30); Chloride 95 mmol/L (98-107); Globulin 3.2 g/dL; Glucose 131 mg/dL (74-99); Non-African American GFR(CKD) 59 (>60 ml/min/1.73 sqM); Potassium 3.2 mmol/L (3.5-5.1); Sodium 133 mmol/L (137-145); Total Bilirubin 0.6 mg/dL (0.2-1.3); Total Protein 6.3 g/dL (6.3-8.2)
[2020-05-30 06:18] LABS: Basophils % (A) 1 %; Eosinophils % (A) 1 %; HCT 38.4 % (39.0-53.0); HGB 12.9 gm/dL (13.0-17.5); Lymphocytes # (A) 0.5 k/uL (1.0-4.8); Lymphocytes % (A) 19 %; MCH 30.5 pg (25.0-35.0); MCHC 33.7 g/dL (31.0-37.0); MCV 90.6 fL (80.0-100.0); Mean Platelet Volume 8.4; Monocytes # (A) 0.4 k/uL (0-1.0); Monocytes % (A) 15 %; Neutrophils # (A) 1.4 k/uL (1.3-7.7); Neutrophils % (A) 60 %; Platelet Count 107 k/uL (150-450); RBC 4.24 m/uL (4.30-5.90); WBC 2.4 k/uL (3.8-10.6)
[2020-05-30] MEDS: SODIUM CHLORIDE 0.9% 1,000 ML IV SCH ×2 (06:25→17:27)
[2020-05-30 06:44] LABS: Glucose,Whole Blood 149 mg/dL (75-99)
[2020-05-30] MEDS ORDERED: PANTOPRAZOLE 40 MG TABLET PO SCH (07:30)
[2020-05-30] MEDS: TAMSULOSIN 0.4 MG CAP.ER.24H PO SCH (08:40)
[2020-05-30] MEDS: LINAGLIPTIN 5 MG TABLET PO SCH (08:40)
[2020-05-30] MEDS: glipiZIDE 5 MG TAB PO SCH ×3 (08:40→17:27)
[2020-05-30] MEDS: hydrALAZINE HCL 50 MG TAB PO SCH ×2 (08:40→17:27)
[2020-05-30] MEDS: carvediloL 6.25 MG TAB PO SCH (08:41)
[2020-05-30] MEDS: INSULIN ASPART (NovoLOG) 100 UNIT/ML VIAL SQ SCH ×3 (08:42→17:29)
[2020-05-30] MEDS ORDERED: ISOSORBIDE MONONITRATE ER 30 MG TAB.ER.24H PO SCH (09:00)
[2020-05-30] MEDS ORDERED: ASPIRIN 81 MG PO SCH (09:00)
[2020-05-30] MEDS ORDERED: ENOXAPARIN 40 MG/0.4 ML SYRINGE SQ SCH (09:00)
[2020-05-30] MEDS ORDERED: Potassium Replacement Protocol 1 EACH MISC MISCELLANE PRN (10:09)
[2020-05-30] MEDS: POTASSIUM CHLORIDE ER 20 MEQ TAB.ER PO SCH ×2 (10:42→12:33)
[2020-05-30 11:39] LABS: Glucose,Whole Blood 263 mg/dL (75-99)
--- NOTE | 2020-05-30 14:35 | P.PN ---
Subjective Progress Note Date: 05/30/20 HISTORY OF PRESENT ILLNESS: Patient examined this morning. He is sitting on the side of the bed eating breakfast. He denies chest pain or pressure. Denies shortness of breath. Vital signs are stable. PHYSICAL EXAM: VITAL SIGNS: Reviewed. GENERAL: Well-developed in no acute distress. NECK: Supple. No JVD or thyromegaly LUNGS: Respirations even and unlabored. Lungs diminished bilaterally. HEART: Regular rate and rhythm. S1 and S2 heard. EXTREMITIES: Normal range of motion. No clubbing or cyanosis. Peripheral pulses intact. No lower extremity edema ASSESSMENT: #1 symptoms of chest pain, atypical, an acute coronary event has been ruled out, troponins have been negative 3. #2 history of nonobstructive CAD noted on cardiac cath from 2007 #3 hypertension #4 hyperlipidemia #5 acute kidney injury #6 diabetes mellitus type 2 #7 symptoms of shortness of breath with NT proBNP 1840, patient appears to be euvolemic. PLAN: Continue current cardiac medications Patient is stable for discharge from a cardiac standpoint. We will sign off. Please reconsult if needed. Nurse practitioner note has been reviewed by physician. Signing provider agrees with the documented findings, assessment, and plan of care. Objective - Vital Signs Vital signs: Vital Signs Temp 98.5 F 05/30/20 07:00 Pulse 74 05/30/20 07:00 Resp 24 05/30/20 07:00 BP 116/65 05/30/20 07:00 Pulse Ox 95 05/30/20 10:43 Intake & Output 05/29/20 05/30/20 05/30/20 18:59 06:59 18:59 Intake Total 240 290 Balance 240 290 Intake: Oral 240 290 Other: Voiding Method Toilet # Voids 2 1 - Labs CBC & Chem 7: 05/30/20 05:14 05/30/20 05:14 Labs: Abnormal Lab Results - Last 24 Hours (Table) 05/29/20 05/29/20 05/29/20 Range/Units 16:47 17:15 20:06 WBC (3.8-10.6) k/uL RBC (4.30-5.90) m/uL Hgb (13.0-17.5) gm/dL Hct (39.0-53.0) % Plt Count (150-450) k/uL Lymphocytes # (1.0-4.8) k/uL Sodium (137-145) mmol/L Potassium (3.5-5.1) mmol/L Chloride (98-107) mmol/L BUN (9-20) mg/dL Glucose (74-99) mg/dL POC Glucose (mg/dL) 141 H 198 H (75-99) mg/dL Albumin (3.5-5.0) g/dL Urine Protein Trace H (Negative) Ur Leukocyte Esterase Moderate H (Negative) Urine WBC 15 H (0-5) /hpf Urine Bacteria Many H (None) /hpf Urine Mucus Occasional H (None) /hpf 05/30/20 05/30/20 05/30/20 Range/Units 05:14 05:14 06:43 WBC 2.4 L (3.8-10.6) k/uL RBC 4.24 L (4.30-5.90) m/uL Hgb 12.9 L (13.0-17.5) gm/dL Hct 38.4 L (39.0-53.0) % Plt Count 107 L (150-450) k/uL Lymphocytes # 0.5 L (1.0-4.8) k/uL Sodium 133 L (137-145) mmol/L Potassium 3.2 L (3.5-5.1) mmol/L Chloride 95 L (98-107) mmol/L BUN 31 H (9-20) mg/dL Glucose 131 H (74-99) mg/dL POC Glucose (mg/dL) 149 H (75-99) mg/dL Albumin 3.1 L (3.5-5.0) g/dL Urine Protein (Negative) Ur Leukocyte Esterase (Negative) Urine WBC (0-5) /hpf Urine Bacteria (None) /hpf Urine Mucus (None) /hpf 05/30/20 Range/Units 11:37 WBC (3.8-10.6) k/uL RBC (4.30-5.90) m/uL Hgb (13.0-17.5) gm/dL Hct (39.0-53.0) % Plt Count (150-450) k/uL Lymphocytes # (1.0-4.8) k/uL Sodium (137-145) mmol/L Potassium (3.5-5.1) mmol/L Chloride (98-107) mmol/L BUN (9-20) mg/dL Glucose (74-99) mg/dL POC Glucose (mg/dL) 263 H (75-99) mg/dL Albumin (3.5-5.0) g/dL Urine Protein (Negative) Ur Leukocyte Esterase (Negative) Urine WBC (0-5) /hpf Urine Bacteria (None) /hpf Urine Mucus (None) /hpf
[2020-05-30 15:14] VITALS: BP 111/72; PULSE 81; RESP 20; TEMP 97.8
[2020-05-30 16:51] LABS: Glucose,Whole Blood 209 mg/dL (75-99)
--- NOTE | 2020-05-30 17:04 | P.DS ---
Providers Date of admission: 05/28/20 14:39 Expected date of discharge: 05/30/20 Attending physician: Raffi Hanson Consults: 05/28/20 14:39 Consult Physician Urgent Consulting Provider: Steve Madsen Consult Reason/Comments: cp Do you want consulting provider notified?: Yes Primary care physician: Raffi Margie [facility] Course: Diagnosis on discharge: 1. Chest pain. Cardiology services consulted. Medications adjusted Imdur added per cardiology. troponins negative. Elevated d-dimer. CTA was negative. 2. Renal insufficiency. Creatinine elevated at 1.50 bun 29. Normal saline at 100. Repeat labs ordered. 3. Generalized weakness. Urinary analysis ordered. PT OT consulted 4. Diabetes mellitus type 2. Home medications reordered hemoglobin A1c ordered. Sliding scale insulin added 5. Essential hypertension. Medications adjusted per cardiology Hospital course: This is an 85-year-old male patient who presented to ER with complaints of chest discomfort. Patient reports that he was having feelings of overall not feeling well with elevated blood sugar and intermittent chest discomfort with shortness of breath over the past couple days. Patient also complains of generalized weakness but denies any acute illness. patient has past medical history of coronary artery disease, diabetes mellitus, hyperlipidemia, essential hypertension and previous heart cath. Chest x-ray performed in ER showing chronic changes without acute pulmonary process. D-dimer was elevated at 2.20. CTA performed showing no evidence of pulmonary embolism. COVID 19 negative. Troponin negative. Creatinine elevated at 1.50 and bun 39. At that time cardiology services will be consulted. Normal saline at 100. Repeat labs ordered for a.m. at this time patient is resting comfortably in bed denies any chest pain or shortness of breath. Denies nausea vomiting or diarrhea. Denies any urinary burning or frequency. On 05/30/2020 patient was seen and examined on the medical floor he is alert and oriented 3 in no apparent distress there are no new episodes of chest pain, there is no fever or chills no headache or dizziness no chest pain no shortness of breath no cough no nausea or vomiting no abdominal pain no diarrhea no blood in the stools no burning with urination no frequency or urgency and no hematuria agent was evaluated by cardiology and was cleared for discharge he will be discharged home today he will be followed in our office within 1 week Plan - Discharge Summary Discharge Rx Participant: No New Discharge Prescriptions: New Cefuroxime Axetil [Ceftin] 500 mg PO BID 5 Days #10 tab Isosorbide Mononitrate ER [Imdur] 30 mg PO DAILY tab.er.24h Pantoprazole [Protonix] 40 mg PO AC-BRKFST tablet.dr Zamarripa hydrALAZINE HCL 50 mg PO AC-BID glipiZIDE [Glucotrol] 5 mg PO AC-TID carvediloL [Coreg] 6.25 mg PO BID metFORMIN HCL [Glucophage] 500 mg PO BID-W/MEALS #60 tab sitaGLIPtin [Januvia] 50 mg PO DAILY Aspirin EC [Ecotrin Low Dose] 81 mg PO DAILY 30 Days #30 tablet. Tamsulosin [Flomax] 0.4 mg PO DAILY cap.er.24h Nitroglycerin Sl Tabs [Nitrostat] 0.4 mg SUBLINGUAL Q5M PRN tab PRN Reason: Chest Pain Discontinued hydroCHLOROthiazide [Hydrodiuril] 25 mg PO DAILY Discharge Medication List carvediloL [Coreg] 6.25 mg PO BID 12/22/18 [History] glipiZIDE [Glucotrol] 5 mg PO AC-TID 12/22/18 [History] hydrALAZINE HCL 50 mg PO AC-BID 12/22/18 [History] metFORMIN HCL [Glucophage] 500 mg PO BID-W/MEALS #60 tab 12/26/18 [Rx] sitaGLIPtin [Januvia] 50 mg PO DAILY 12/02/19 [History] Aspirin EC [Ecotrin Low Dose] 81 mg PO DAILY 30 Days #30 tablet. 12/06/19 [Rx] Nitroglycerin Sl Tabs [Nitrostat] 0.4 mg SUBLINGUAL Q5M PRN tab 12/06/19 [Rx] Tamsulosin [Flomax] 0.4 mg PO DAILY cap.er.24h 12/06/19 [Rx] Cefuroxime Axetil [Ceftin] 500 mg PO BID 5 Days #10 tab 05/30/20 [Rx] Isosorbide Mononitrate ER [Imdur] 30 mg PO DAILY tab.er.24h 05/30/20 [Rx] Pantoprazole [Protonix] 40 mg PO AC-BRKFST tablet. 05/30/20 [Rx] Follow up Appointment(s)/Referral(s): Agusto Brooks MD [STAFF PHYSICIAN] - 1 Week Raffi Hanson MD [Primary Care Provider] - 1-2 days Patient Instructions/Handouts: Chest Pain (DC) Activity/Diet/Wound Care/Special Instructions: activity as tolerated heart healthy diet
== END 2020-05-30 19:55 | disposition home or self-care (01) ==
LOC: EC 12:20 → 6NMEDSUR 14:39
PROVIDERS: ADMIT Internal Medicine; ATTEND Internal Medicine
DX: R07.89 Other chest pain (principal); N17.9 Acute kidney failure, unspecified; R79.89 Other specified abnormal findings of blood chemistry; E11.65 Type 2 diabetes mellitus with hyperglycemia; I10 Essential (primary) hypertension; I25.10 Atherosclerotic heart disease of native coronary artery without angina pectoris; E78.5 Hyperlipidemia, unspecified; I45.10 Unspecified right bundle-branch block; I44.0 Atrioventricular block, first degree; M19.90 Unspecified osteoarthritis, unspecified site; Z93.3 Colostomy status; Z79.84 Long term (current) use of oral hypoglycemic drugs; Z87.891 Personal history of nicotine dependence; Z20.822 Contact with and (suspected) exposure to COVID-19; Z79.82 Long term (current) use of aspirin; Z79.899 Other long term (current) drug therapy; Z85.038 Personal history of other malignant neoplasm of large intestine; Z96.1 Presence of intraocular lens
CPT/HCPCS: 96361 ×3; 96365; 96372; 93005 ×3; 99285; 36415; 94760; 97162; 97166; 85379; 83880; 80061; 80053 ×3; 83735; 84484; 85025 ×3; 85610; 85730; 81001; 87635; 71046; 71275; G0378 ×3; J1650; J0696; Q9967